=== PATIENT | female | born 1935 | race Caucasian/White ===

== ENCOUNTER 2016-06-10 03:41 | Outpatient (CLI) | payer MEDICARE, MEDICAID | END 2016-06-10 03:42 | disposition critical access hospital (66) | DX: R42 Dizziness and giddiness (principal) | CPT/HCPCS: A0425; A0429 ==

== ENCOUNTER 2016-06-10 03:57 | Emergency (ER) | payer MEDICARE, MEDICAID ==
[2016-06-10] MEDS ORDERED: CIPROFLOXACIN 250 MG TABLET PO STA (06:08)
[2016-06-10] MEDS ORDERED: CIPROFLOXACIN 250 MG TABLET PO ONE (06:09)
[2016-06-10] MEDS ORDERED: MECLIZINE 12.5 MG TABLET PO STA (06:37)
[2016-06-10] MEDS ORDERED: MECLIZINE 12.5 MG TABLET PO ONE (06:39)
== END 2016-06-10 07:45 | disposition home or self-care (01) ==
DX: R42 Dizziness and giddiness (principal); N39.0 Urinary tract infection, site not specified; I10 Essential (primary) hypertension; E03.9 Hypothyroidism, unspecified
CPT/HCPCS: 36415; 70450; 71020; 80048; 81001; 84484; 85025; 87077; 87086; 87181; 93005; 93010; 99284; 99285; A9270

== ENCOUNTER 2016-06-19 16:03 | Outpatient (CLI) | payer MEDICARE, MEDICAID ==
--- NOTE | 2016-06-20 14:52 | DEXA Report ---
DEXA SCAN: 06/19/2016 CLINICAL INDICATION: Osteopenia. TECHNIQUE: Dual energy x-ray absorptiometry (DXA) was performed on a Wisecam system. Regions measured are the AP spine, femoral neck, and, if needed, forearm. COMPARISON: None. In accordance with the International Society for Clinical Densitometry (ISCD) guidelines, data from previous exams may be reanalyzed using current recommendations and techniques. This is done to allow a more accurate basis for comparison with the current study. FINDINGS: The data for the lumbar spine is as follows: REGION BMD (g/cm/cm) T-SCORE Z-SCORE L1 1.274 1.2 3.3 L2 1.262 0.5 2.6 L3 1.380 1.5 3.6 L4 1.492 2.4 4.5 TOTAL 1.363 1.5 3.6 NOTE: All evaluable vertebrae are used for classification. The data for the hip is as follows: REGION BMD (g/cm/cm) T-SCORE Z-SCORE Neck 0.872 -1.2 1.2 TOTAL 0.962 -0.4 1.9 NOTE: The femoral neck or total proximal femur, whichever is lowest, is used for classification. * Denotes significant change at the 95% confidence level. Denotes dissimilar scan types or analysis methods. IMPRESSION: THE WHO CLASSIFICATION BASED ON THE INTERNATIONAL REFERENCE STANDARD IS OSTEOPENIA (REFERENCE LEFT FEMORAL NECK). THE FRACTURE RISK IS INCREASED. RECOMMENDATION: Patients with diagnosis of osteoporosis or osteopenia should have regular bone mineral density assessment. For those eligible for Medicare, routine testing is allowed once every 2 years. Testing frequency can be increased for patients who have rapidly progressing disease or for those who are receiving medical therapy to restore bone mass. COMMENT: World Health Organization (WHO) definitions for osteoporosis and osteopenia: NORMAL BMD: T-score at -1.0 or higher, fracture risk is low. OSTEOPENIA BMD: T-score between -1.0 and -2.5, fracture risk is increased. OSTEOPOROSIS BMD: T-score at -2.5 or lower, fracture risk high. National Osteoporosis Foundation recommends: 1. Obtain adequate dietary calcium (at least 1200 mg per day) and vitamin D (400 -800 international units per day). 2. Participate, as appropriate, in regular weightbearing and muscle- strengthening exercise. 3. Avoid tobacco use and reduce alcohol and caffeine intake. 4. For more detailed information see the website at www.NOF.org. MTDD
== END 2016-06-19 16:04 | disposition home or self-care (01) ==
LOC: DI 16:03
PROVIDERS: ATTEND Internal Medicine
DX: M85.88 Other specified disorders of bone density and structure, other site (principal)
CPT/HCPCS: 77080

== ENCOUNTER 2016-10-28 11:06 | Outpatient (CLI) | payer MEDICARE, MEDICAID ==
--- NOTE | 2016-10-29 15:53 | Mammography Report ---
DIGITAL SCREENING MAMMOGRAPHY: 10/28/2016 COMPARISON: 06/27/2014 Bilateral digital CC, exaggerated CC, and MLO projections. Scattered fibroglandular densities are present. Bilateral calcifications are stable to minimally inc reased compared with 2014. No dominant mass, architectural distortion, skin thickening, suspicious m icrocalcifications, or interval change. IMPRESSION: NEGATIVE. BIRADS CATEGORY: 1, NEGATIVE. SUGGEST ROUTINE FOLLOWUP IN 12 MONTHS. STANDARD QUALIFYING STATEMENTS 1. This examination was reviewed with the aid of Computed-Aided Detection (CAD). 2. A negative or benign imaging report should not delay biopsy if clinically suspicious findings are present. Consider surgical consultation if warranted. More than 5% of cancers are not identified b y imaging. 3. Dense breasts may obscure an underlying neoplasm. JOB #: [id number] EXT JOB #:[id number]
== END 2016-10-28 11:07 | disposition home or self-care (01) ==
LOC: DI 11:06
PROVIDERS: ATTEND Internal Medicine
DX: Z12.31 Encounter for screening mammogram for malignant neoplasm of breast (principal)
CPT/HCPCS: 77067

== ENCOUNTER 2017-01-04 13:13 | Outpatient (CLI) | payer MEDICARE, MEDICAID | END 2017-01-04 13:14 | disposition home or self-care (01) | LOC: RT 13:13 | PROVIDERS: ATTEND Internal Medicine | DX: J45.909 Unspecified asthma, uncomplicated (principal) | CPT/HCPCS: 94010 ==

== ENCOUNTER 2017-01-08 02:35 | Outpatient (CLI) | payer MEDICARE, MEDICAID | END 2017-01-08 02:36 | disposition critical access hospital (66) | LOC: EMS 02:35 | PROVIDERS: ATTEND Surgery | DX: R04.0 Epistaxis (principal) | CPT/HCPCS: A0425; A0429 ==

== ENCOUNTER 2017-01-08 02:51 | Emergency (ER) | payer MEDICARE, MEDICAID ==
--- NOTE | 2017-01-08 02:59 | ED Physician Documentation ---
PD HPI HEENT - Stated complaint Stated Complaint: Nose Bleed - History obtained from History obtained from: Patient, EMS - History of Present Illness Timing - onset: Today Timing - duration: Minutes Timing - details: Now resolved Location: Nose Similar symptoms before: Has not had sx before Recently seen: Not recently seen - Additional information Additional information: Patient is an 81 year old female with no significant past medical history who is presenting to the emergency department for epistaxis. According to patient and ems, patient developed a nose bleed tonight. Patient states that she has been cold and using her heater more recently. When ems arrived they were able to control the bleeding, which was fairly minimal, but patient insisted on coming to the emergency department. Upon initial evaluation in the emergency department patient was well appearing, in no distress with no active bleeding. Review of Systems Constitutional: denies: Fever, Chills Eyes: denies: Discharge, Irritation Ears: reports: Reviewed and negative Nose: reports: Epistaxis Throat: reports: Reviewed and negative Cardiac: reports: Reviewed and negative Respiratory: reports: Cough GI: denies: Nausea, Vomiting, Constipation, Diarrhea : reports: Reviewed and negative Skin: reports: Reviewed and negative Neurologic: reports: Reviewed and negative Psychiatric: reports: Reviewed and negative Immunocompromised: denies: Immunocompromised PD PAST MEDICAL HISTORY - Past Medical History Cardiovascular: Hypertension, High cholesterol Respiratory: Asthma Neuro: None Endocrine/Autoimmune: HyPOthyroidism GI: Other : None HEENT: Chronic sinusitis Musculoskeletal: None Derm: None - Past Surgical History Past Surgical History: Yes General: Appendectomy, 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: Hysterectomy HEENT: Cataracts, Tonsil/Adenoidectomy - Present Medications Home Medications: Ambulatory Orders Medication Instructions Recorded Confirmed Levothyroxine [Synthroid] 1 tab PO DAILY 11/02/13 02/08/15 Atorvastatin [Lipitor] 1 tab PO DAILY 04/06/14 02/08/15 Calcium Carbonate/Vitamin D3 1 each PO DAILY 04/06/14 02/08/15 [Calcium + Vitamin D Tablet] Lisinopril [Prinivil] 1 tab PO DAILY 04/06/14 02/08/15 Montelukast [Singulair] 10 mg PO DAILY 04/06/14 02/08/15 [place]yrus-3 Fatty Acids [Fish Oil] 1 tab PO DAILY 04/06/14 02/08/15 Beclomethasone Dipropionate [Qvar] 1 puffs IH BID 04/20/14 02/08/15 Ferrous Sulfate 325 mg ORAL DAILY 04/28/14 02/08/15 Multivit-Min/FA/Lycopen/Lutein 1 tab PO DAILY 12/18/14 02/08/15 [Centrum Silver Tablet] Ciprofloxacin HCl [Cipro] 500 mg PO BID #13 tablet 06/10/16 - Allergies Allergies/Adverse Reactions: Allergies Allergy/AdvReac Type Severity Reaction Status Date / Time aztreonam Allergy Unknown Dizziness Verified 11/02/13 10:48 carbamazepine Allergy Unknown Dizziness Verified 11/02/13 10:48 Cephalosporins Allergy Unknown Dizziness Verified 11/02/13 10:48 Penicillins Allergy Unknown Dizziness Verified 11/02/13 10:48 - Social History Does the pt smoke?: No Smoking Status: Never smoker Does the pt drink ETOH?: No Does the pt have substance abuse?: No - Immunizations Immunizations are current?: Yes - POLST Patient has POLST: No PD ED PE NORMAL - Vitals Vital signs reviewed: Yes - General General: Alert and oriented X 3, No acute distress, Well developed/nourished - HEENT HEENT: Atraumatic, PERRL, EOMI, Moist mucous membranes, Pharynx benign, Other ( no bleeding in the nares) - Neck Neck: Supple, no meningeal sign - Cardiac Cardiac: RRR, No murmur - Respiratory Respiratory: No respiratory distress - Abdomen Abdomen: Soft, Non tender, Non distended - Derm Derm: Normal color, Warm and dry, No rash - Extremities Extremities: No deformity, No tenderness to palpate, No edema - Neuro Neuro: Alert and oriented X 3, No motor deficit, No sensory deficit, Normal speech Eye Opening: Spontaneous Motor: Obeys Commands Verbal: Oriented GCS Score: 15 PD ED PE EXPANDED - HEENT HEENT: No: Nasal congestion, Right nares epsitaxis, Left nares epistaxis Results - Vitals Vitals: Vital Signs - 24 hr 01/08/17 01/08/17 01/08/17 02:57 03:00 03:22 Temperature 36.8 C Heart Rate 111 H 97 97 Respiratory 22 18 Rate Blood Pressure 186/90 H 151/86 H O2 Saturation 96 99 Oxygen O2 Source Room air PD MEDICAL DECISION MAKING - ED course Complexity details: reviewed old records, reviewed results, re-evaluated patient , considered differential, d/w patient ED course: Patient was seen and examined at bedside. patient was well appearing and in no distress. Patient's tachycardia resolved on its own. the bleeding had already resolved. there was no indication for any diagnostics at this time. patient was counseled on preventative and home treatment methods and was stable for discharge with outpatient follow up. Departure - Departure Disposition: 01 Home, Self Care Clinical Impression: Epistaxis not due to trauma Condition: Good Instructions: ED Nosebleed Follow-Up: Kaylan Hewitt MD [Primary Care Provider] - As Needed Comments: Your bleeding has stopped and there is no apparent bleeding vessel on exam. I would apply vaseline to the inside of your nose during the winter when you are running your heater. Drying out the nasal septum is the most likely culprit. If it does start bleeding again you should apply pressure with your hands, or the clamps given to you. You should follow up with your doctor if this symptom persists or becomes more frequent. You can return to the emergency department at any time if necessary for new, worsening or uncontrollable symptoms. Discharge Date/Time: 01/08/17 03:18
[2017-01-08 03:23] VITALS: BP 151/86
== END 2017-01-08 03:18 | disposition home or self-care (01) ==
LOC: EDUNIT# → SUPCPDRO 02:51 → ED 02:51
DX: R04.0 Epistaxis (principal); I10 Essential (primary) hypertension; E78.00 Pure hypercholesterolemia, unspecified; E03.9 Hypothyroidism, unspecified
CPT/HCPCS: 99283

== ENCOUNTER 2017-11-16 06:17 | Outpatient (CLI) | payer MEDICARE, MEDICAID | END 2017-11-16 06:18 | disposition EMS.NT | LOC: EMS 06:17 | PROVIDERS: ATTEND Surgery | DX: R09.81 Nasal congestion (principal) ==

== ENCOUNTER 2018-02-20 04:29 | Outpatient (CLI) | payer MEDICARE, MEDICAID | END 2018-02-20 04:30 | disposition critical access hospital (66) | LOC: EMS 04:29 | PROVIDERS: ATTEND Surgery | DX: R05 Cough (principal) | CPT/HCPCS: A0425; A0429 ==

== ENCOUNTER 2018-02-20 04:46 | Emergency (ER) | payer MEDICARE, MEDICAID ==
--- NOTE | 2018-02-20 05:11 | ED Physician Documentation ---
PD HPI URI - Stated complaint Stated Complaint: COUGH - Chief complaint Chief Complaint: Resp - History obtained from History obtained from: Patient, Family - History of Present Illness Timing - onset: How many weeks ago (1) Timing details: Gradual onset Associated symptoms: Chills. No: Fever, Sweats, Sore throat Improves by: Rest Worsened by: Activity Similar symptoms before: Has not had sx before Recently seen: Clinic - Additional information Additional information: Patient complains of cough and shortness of breath for one week. She saw her primary care physician recently, had blood work and although chest x-ray was discussed, it has not yet been performed. She says she was prescribed an inhaler, but she did not use it because she could not tolerate the taste. she presents to the emergency department at this time due to worsening dyspnea. Review of Systems Constitutional: reports: Reviewed and negative Cardiac: reports: Reviewed and negative Respiratory: reports: Dyspnea, Cough, Wheezing. 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: Hysterectomy HEENT: Cataracts, Tonsil/Adenoidectomy - Present Medications Home Medications: Ambulatory Orders Medication Instructions Recorded Confirmed Levothyroxine [Synthroid] 1 tab PO DAILY 11/02/13 02/08/15 Atorvastatin [Lipitor] 1 tab PO DAILY 04/06/14 02/08/15 Calcium Carbonate/Vitamin D3 1 each PO DAILY 04/06/14 02/08/15 [Calcium + Vitamin D Tablet] Lisinopril [Prinivil] 1 tab PO DAILY 04/06/14 02/08/15 Montelukast [Singulair] 10 mg PO DAILY 04/06/14 02/08/15 Novi-3 Fatty Acids [Fish Oil] 1 tab PO DAILY 04/06/14 02/08/15 Beclomethasone Dipropionate [Qvar] 1 puffs IH BID 04/20/14 02/08/15 Ferrous Sulfate 325 mg ORAL DAILY 04/28/14 02/08/15 Multivit-Min/FA/Lycopen/Lutein 1 tab PO DAILY 12/18/14 02/08/15 [Centrum Silver Tablet] Ciprofloxacin HCl [Cipro] 500 mg PO BID #13 tablet 06/10/16 Albuterol Sulf [Ventolin Hfa 1 - 2 puffs INH Q4HR PRN #1 inhaler 02/20/18 Inhaler] - Allergies Allergies/Adverse Reactions: Allergies Allergy/AdvReac Type Severity Reaction Status Date / Time aztreonam Allergy Unknown Dizziness Verified 02/20/18 04:52 carbamazepine Allergy Unknown Dizziness Verified 02/20/18 04:52 Cephalosporins Allergy Unknown Dizziness Verified 02/20/18 04:52 Penicillins Allergy Unknown Dizziness Verified 02/20/18 04:52 - Social History Does the pt smoke?: No Smoking Status: Never smoker Does the pt drink ETOH?: No Does the pt have substance abuse?: No - Immunizations Immunizations are current?: Yes - POLST Patient has POLST: No PD ED PE NORMAL - Vitals Vital signs reviewed: Yes - General General: Alert and oriented X 3, No acute distress, Well developed/nourished - HEENT HEENT: Moist mucous membranes - Neck Neck: Supple, no meningeal sign - Cardiac Cardiac: RRR, No murmur - Respiratory Respiratory: No respiratory distress, Other - Abdomen Abdomen: Soft, Non tender - Derm Derm: Normal color, Warm and dry - Extremities Extremities: No edema PD ED PE EXPANDED - Respiratory Respiratory: Decreased breath sounds Results - Vitals Vitals: Vital Signs - 24 hr 02/20/18 02/20/18 02/20/18 04:49 04:58 05:45 Temperature 36.5 C Heart Rate 105 H 97 91 Respiratory 20 Rate Blood Pressure 199/97 H 167/101 H 160/64 H O2 Saturation 94 95 95 02/20/18 02/20/18 05:52 06:49 Temperature Heart Rate 79 87 Respiratory 16 Rate Blood Pressure 167/72 H O2 Saturation 93 Oxygen O2 Source Room air - Labs Labs: Laboratory Tests 02/20/18 02/20/18 02/20/18 05:49 05:49 05:49 WBC 5.6 RBC 4.04 L Hgb 11.4 L Hct 35.4 L MCV 87.6 MCH 28.2 MCHC 32.1 RDW 15.9 H Plt Count 228 MPV 6.8 L Neut # (Auto) 3.3 Lymph # (Auto) 1.3 L [place] # (Auto) 0.4 Eos # (Auto) 0.6 Baso # (Auto) 0.0 Absolute Nucleated RBC 0.00 Nucleated RBC % 0.0 Sodium 141 Potassium 3.3 L Chloride 106 Carbon Dioxide 28 Anion Gap 7.0 BUN 18 Creatinine 1.0 Estimated GFR (MDRD) 53 L Glucose 100 Calcium 9.0 B-Natriuretic Peptide 132 H Influenza A (Rapid) Influenza B (Rapid) 02/20/18 06:30 WBC RBC Hgb Hct MCV MCH MCHC RDW Plt Count MPV Neut # (Auto) Lymph # (Auto) [place] # (Auto) Eos # (Auto) Baso # (Auto) Absolute Nucleated RBC Nucleated RBC % Sodium Potassium Chloride Carbon Dioxide Anion Gap BUN Creatinine Estimated GFR (MDRD) Glucose Calcium B-Natriuretic Peptide Influenza A (Rapid) Negative Influenza B (Rapid) Negative - Rads (name of study) chest xray Radiology: Prelim report reviewed, See rad report PD MEDICAL DECISION MAKING - ED course Complexity details: reviewed results, re-evaluated patient, considered differential, d/w patient ED course: patient reported significant relief on reevaluation after duoneb. Results of tests discussed with patient and family. Departure - Departure Disposition: 01 Home, Self Care Clinical Impression: Bronchitis with bronchospasm Condition: Good Instructions: ED Bronchitis Asthmatic Follow-Up: Kaylan Hewitt MD [Primary Care Provider] - Prescriptions: Albuterol Sulf [Ventolin Hfa Inhaler] 1 - 2 puffs INH Q4HR PRN #1 inhaler PRN Reason: Shortness Of Air/Wheezing Discharge Date/Time: 02/20/18 07:40
[2018-02-20] MEDS ORDERED: IPRATROPIUM/ALBUTEROL 3 ML NEB INH STA (05:41)
[2018-02-20 06:00] LABS: BASOPHILS % (AUTO) 0.3 %; EOSINOPHILS # (AUTO) 0.6 10^3/uL (0.0-0.7); EOSINOPHILS % (AUTO) 10.7 %; HGB - HEMOGLOBIN 11.4 g/dL (12.0-16.0); LYMPHOCYTES # (AUTO) 1.3 10^3/uL (1.5-3.5); LYMPHOCYTES % (AUTO) 22.6 %; MEAN CORPUSCULAR HEMOGLOBIN 28.2 pg (27.0-31.0); MEAN CORPUSCULAR HGB CONC 32.1 g/dL (32.0-36.0); MEAN CORPUSCULAR VOLUME 87.6 fL (81.0-99.0); MEAN PLATELET VOLUME 6.8 fL (7.9-10.8); MONOCYTES # (AUTO) 0.4 10^3/uL (0.0-1.0); MONOCYTES % (AUTO) 7.6 %; NEUTROPHILS # (AUTO) 3.3 10^3/uL (1.5-6.6); NEUTROPHILS % (AUTO) 58.8 %; PLT - PLATELET COUNT 228 10^3/uL (130-450); RED BLOOD COUNT 4.04 10^6/uL (4.20-5.40); RED CELL DISTRIBUTION WIDTH 15.9 % (12.0-15.0); WHITE BLOOD COUNT 5.6 x10^3/uL (4.8-10.8)
--- NOTE | 2018-02-20 06:30 | XRAY Report ---
Reason: cough, dyspnea Procedure Date: 02/20/2018 Accession Number: [id number] / [id number] Procedure: XR - Chest 2 View X-Ray CPT Code: 06673 FULL RESULT: EXAM: CHEST RADIOGRAPHY EXAM DATE: 02/20/2018 06:20 AM. CLINICAL HISTORY: Cough, dyspnea. COMPARISON: CHEST 2 VIEW PA/LAT 06/10/2016 4:33 AM. TECHNIQUE: 2 views. FINDINGS: Lungs/Pleura: No alveolar consolidation or pleural effusion seen. Large lung volumes. No pneumothorax. Mediastinum: Heart and mediastinal contours are unremarkable. Other: None. IMPRESSION: 1. No acute abnormality seen in the chest. RADIA
[2018-02-20 06:52] VITALS: BP 167/72
== END 2018-02-20 07:40 | disposition home or self-care (01) ==
LOC: EDUNIT# → ED 04:46
DX: J20.9 Acute bronchitis, unspecified (principal); E03.9 Hypothyroidism, unspecified; I10 Essential (primary) hypertension; E78.00 Pure hypercholesterolemia, unspecified
CPT/HCPCS: 36415; 71046; 80048; 83880; 85025; 87275; 87276; 94640; 99283

== ENCOUNTER 2018-03-22 13:04 | Emergency (ER) | payer MEDICARE, MEDICAID ==
[2018-03-22] MEDS ORDERED: IOVERSOL 320 100 ML VIAL IVP ONE ×3 (13:05→14:07)
--- NOTE | 2018-03-22 13:27 | ED Physician Documentation ---
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 She is originally [place] and seems to have some memory issues is here last week for the cough and she is been using an inhaler which gives her rash, but the rash is not present right now. The rash is usually at night and on the back of the thighs. The cough is keeping her up at night and is productive of clear mucus. She actually was not here last week, it was almost a month ago to the day. She also complains of abdominal pain, "since I have been here." When I asked her how long she is been here she says she moved to [facility] in 2005. Since then she is also had chronic constipation. The abdominal pain is upper and not related to eating. It does not lateralize or radiate to the back. She denies nausea or vomiting. She denies fevers or shortness of breath.) Review of Systems Constitutional: reports: Fatigue. denies: Fever, Chills Nose: denies: Rhinorrhea / runny nose, Congestion Cardiac: denies: Chest pain / pressure, Palpitations Respiratory: reports: Cough. denies: Dyspnea, Wheezing GI: reports: Abdominal Pain, Constipation. 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 HEENT: Cataracts, Tonsil/Adenoidectomy - Present Medications Home Medications: Ambulatory Orders Medication Instructions Recorded Confirmed Levothyroxine [Synthroid] 1 tab PO DAILY 11/02/13 03/22/18 Atorvastatin [Lipitor] 1 tab PO DAILY 04/06/14 03/22/18 Calcium Carbonate/Vitamin D3 1 each PO DAILY 04/06/14 03/22/18 [Calcium + Vitamin D Tablet] Multivit-Min/FA/Lycopen/Lutein 1 tab PO DAILY 12/18/14 03/22/18 [Centrum Silver Tablet] Albuterol Sulf [Ventolin Hfa 1 - 2 puffs INH Q4HR PRN #1 inhaler 02/20/18 03/22/18 Inhaler] Aspirin 03/22/18 Benzonatate [Tessalon Perle] 100 - 200 mg PO TID PRN #30 capsule 03/22/18 Nitrofurantoin Monohyd/M-Cryst 100 mg PO BID #10 capsule 03/22/18 [Macrobid 100 mg Capsule] - Allergies Allergies/Adverse Reactions: Allergies Allergy/AdvReac Type Severity Reaction Status Date / Time aztreonam Allergy Unknown Dizziness Verified 03/22/18 13:45 carbamazepine Allergy Unknown Dizziness Verified 03/22/18 13:45 Cephalosporins Allergy Unknown Dizziness Verified 03/22/18 13:45 Penicillins Allergy Unknown Dizziness Verified 03/22/18 13:45 - Social History Does the pt smoke?: No Smoking Status: Never smoker Does the pt drink ETOH?: No Does the pt have substance abuse?: No - Immunizations Immunizations are current?: Yes - POLST Patient has POLST: No PD ED PE NORMAL - Vitals Vital signs reviewed: Yes - General General: No acute distress, Well developed/nourished - HEENT HEENT: Other (No tonsils, oropharynx normal) - Neck Neck: Supple, no meningeal sign, No bony TTP - Cardiac Cardiac: RRR, No murmur - Respiratory Respiratory: No respiratory distress, Clear bilaterally - Abdomen Abdomen: Soft, Other (She was examined several times during initial evaluation and she has migratory abdominal tenderness that seems left lower and epigastric depending on when I actually touch her. No surgical signs. Hyperactive bowel tones.) - Back Back: No CVA TTP, No spinal TTP - Derm Derm: No rash - Extremities Extremities: No edema, No calf tenderness / cord - Neuro Neuro: Alert and oriented X 3, Normal speech Results - Vitals Vitals: Vital Signs - 24 hr 03/22/18 13:08 Temperature 36.1 C L Heart Rate 79 Respiratory 20 Rate Blood Pressure 140/117 H O2 Saturation 98 Oxygen O2 Source Room air - Labs Labs: Laboratory Tests 03/22/18 03/22/18 03/22/18 13:30 13:30 13:53 WBC 6.6 RBC 4.19 L Hgb 12.1 Hct 36.0 L MCV 85.8 MCH 28.8 MCHC 33.6 RDW 16.6 H Plt Count 272 MPV 7.4 L Neut # (Auto) 4.6 Lymph # (Auto) 0.9 L [place] # (Auto) 0.6 Eos # (Auto) 0.4 Baso # (Auto) 0.0 Absolute Nucleated RBC 0.01 Nucleated RBC % 0.1 Sodium 135 Potassium 3.7 Chloride 99 L Carbon Dioxide 26 Anion Gap 10.0 BUN 22 H Creatinine 1.2 H Estimated GFR (MDRD) 43 L Glucose 152 H Calcium 9.4 Total Bilirubin 0.5 AST 32 ALT 24 Alkaline Phosphatase 81 Total Protein 8.0 Albumin 3.8 Globulin 4.2 Albumin/Globulin Ratio 0.9 L Lipase 48 Urine Color YELLOW Urine Clarity CLEAR Urine pH 6.0 Ur Specific [place] 1.025 Urine Protein NEGATIVE Urine Glucose (UA) NEGATIVE Urine Ketones NEGATIVE Urine Occult Blood SMALL H Urine Nitrite NEGATIVE Urine Bilirubin NEGATIVE Urine Urobilinogen 0.2 (NORMAL) Ur Leukocyte Esterase TRACE H Urine RBC 0-5 Urine WBC 6-10 H Urine WBC Clumps PRESENT Ur Squamous Epith Cells RARE Squamous Urine Bacteria Rare Ur Microscopic Review INDICATED Urine Culture Comments INDICATED - Rads (name of study) 2v Chest Radiology: EMP read contemporaneously (Normal) CT A/P Radiology: EMP read contemporaneously (Diverticulosis and concern for a closed loop obstruction in the low abdomen.) PD MEDICAL DECISION MAKING - ED course ED course: This is an 82-year-old woman who presents with kind of a rambling history of cough and abdominal pain of unclear acuity. Workup as shown. The CT was reviewed personally. Clinically she is not obstructed, she has hyperactive bowel tones and no vomiting. Could be an enteritis, partial obstruction less likely. Either way case was discussed by phone with the on-call surgeon, Dr. Devin Cantu who recommended liquid diet for 24 hours and we will of course also treat her UTI. Departure - Departure Disposition: 01 Home, Self Care Clinical Impression: Cough, Enteritis UTI (urinary tract infection) Qualifiers: Urinary tract infection type: acute cystitis Hematuria presence: without he maturia Qualified Code(s): N30.00 - Acute cystitis without hematuria Condition: Good Record reviewed to determine appropriate education?: Yes Instructions: ED UTI Cystitis Female Prescriptions: Benzonatate [Tessalon Perle] 100 - 200 mg PO TID PRN #30 capsule PRN Reason: Cough Nitrofurantoin Monohyd/M-Cryst [Macrobid 100 mg Capsule] 100 mg PO BID #10 capsule Comments: As discussed you could have a partial bowel obstruction or a viral syndrome affecting your bowel. Either way you should be on a liquid diet for the next 24 hours. Return for new or worsening symptoms, especially if you develop a fever or vomiting. Follow-up with your primary care physician in 2 days for recheck. We will culture your urine, the results should be done in 48-72 hours. If an antibiotic change is necessary we will call you. Return if worse in the meanti me, especially if you develop increasing flank pain, fevers, or cannot keep down the medication. Your blood pressure was elevated today on check into the emergency department. This does not mean that you have hypertension, it is a common phenomenon to come to the emergency department and have elevated blood pressure. I recommend that you see your primary care physician within the week to have it rechecked when you are feeling better.
[2018-03-22 13:42] LABS: BASOPHILS % (AUTO) 0.7 %; EOSINOPHILS # (AUTO) 0.4 10^3/uL (0.0-0.7); EOSINOPHILS % (AUTO) 6.8 %; HGB - HEMOGLOBIN 12.1 g/dL (12.0-16.0); LYMPHOCYTES # (AUTO) 0.9 10^3/uL (1.5-3.5); MEAN CORPUSCULAR HEMOGLOBIN 28.8 pg (27.0-31.0); MEAN CORPUSCULAR HGB CONC 33.6 g/dL (32.0-36.0); MEAN CORPUSCULAR VOLUME 85.8 fL (81.0-99.0); MEAN PLATELET VOLUME 7.4 fL (7.9-10.8); MONOCYTES # (AUTO) 0.6 10^3/uL (0.0-1.0); MONOCYTES % (AUTO) 8.7 %; NEUTROPHILS # (AUTO) 4.6 10^3/uL (1.5-6.6); NEUTROPHILS % (AUTO) 69.8 %; PLT - PLATELET COUNT 272 10^3/uL (130-450); RED BLOOD COUNT 4.19 10^6/uL (4.20-5.40); RED CELL DISTRIBUTION WIDTH 16.6 % (12.0-15.0); WHITE BLOOD COUNT 6.6 x10^3/uL (4.8-10.8)
[2018-03-22 13:48] LABS: ALBUMIN 3.8 g/dL (3.2-5.5); ALBUMIN/GLOBULIN RATIO 0.9 (1.0-2.2); BILIRUBIN,TOTAL 0.5 mg/dL (0.2-1.0); CALCIUM 9.4 mg/dL (8.5-10.3); CREATININE 1.2 mg/dL (0.4-1.0)
[2018-03-22 13:58] LABS: BILIRUBIN,URINE NEGATIVE (NEGATIVE); GLUCOSE, URINE (UA) NEGATIVE (NEGATIVE); KETONES,URINE (UA) NEGATIVE (NEGATIVE); LEUKOCYTE ESTERASE, URINE TRACE (NEGATIVE); NITRITE,URINE NEGATIVE (NEGATIVE); OCCULT BLOOD,URINE SMALL (NEGATIVE); PROTEIN,URINE NEGATIVE (NEGATIVE); UROBILINOGEN,URINE 0.2 (NORMAL) E.U./dL (NORMAL)
[2018-03-22 14:00] LABS: CLARITY,URINE CLEAR (CLEAR)
[2018-03-22 14:08] LABS: BACTERIA,URINE Rare /HPF (None Seen); SQUAMOUS EPITHELIAL CELL,UR RARE Squamous (<= Few); WBC CLUMPS,URINE PRESENT
[2018-03-22 14:17] LABS: RBC,URINE 0-5 /HPF (0-5)
--- NOTE | 2018-03-22 14:38 | XRAY Report ---
Reason: persistent cough Procedure Date: 03/22/2018 Accession Number: [id number] / [id number] Procedure: XR - Chest 2 View X-Ray CPT Code: 12053 FULL RESULT: EXAM: CHEST RADIOGRAPHY EXAM DATE: 03/22/2018 02:13 PM. CLINICAL HISTORY: Persistent cough. COMPARISON: CHEST 2 VIEW 02/20/2018 6:06 AM ABDOMEN/PELVIS W/ 03/22/2018 2:04 PM. TECHNIQUE: 2 views. FINDINGS: Lungs/Pleura: No focal opacities evident. No pleural effusion. No pneumothorax. Normal volumes. Hyperexpansion. Mediastinum: Heart size is normal. Aorta is mildly tortuous. Other: Degenerative changes of the thoracic spine. IMPRESSION: 1. No acute disease in the chest. RADIA
--- NOTE | 2018-03-22 14:55 | CT Report ---
Reason: IV only, diffuse abd pain upper and LLQ Procedure Date: 03/22/2018 Accession Number: [id number] / [id number] Procedure: CT - Abdomen/Pelvis W/ CPT Code: FULL RESULT: EXAM: CT ABDOMEN AND PELVIS WITH CONTRAST. EXAM DATE: 03/22/2018 02:04 PM. CLINICAL HISTORY: Diffuse abdominal pain, upper and lower quadrants. COMPARISONS: None. TECHNIQUE: Routine helical CT imaging was performed through the abdomen and pelvis. IV contrast: 80 cc of Optiray 320. Enteric contrast: No. Reconstructions: Coronal and sagittal. In accordance with CT protocol optimization, one or more of the following dose reduction techniques were utilized for this exam: automated exposure control, adjustment of mA and/or KV based on patient size, or use of iterative reconstructive technique. FINDINGS: Lung Bases: Basilar scar/atelectasis. Included portions of the heart are unremarkable. Small hiatal hernia. Liver: Normal. No masses. Gallbladder/Bile Ducts: Markedly contracted gallbladder. No biliary ductal dilatation. Spleen: Normal. Pancreas: Pancreatic parenchymal volume loss. No peripancreatic edema. Adrenal Glands: Normal. Kidneys: Renal parenchymal volume loss. No hydronephrosis. No nephrolithiasis. Extra renal pelves bilaterally. Upper pole right renal 7 mm low-attenuation lesion too small to characterize. Peritoneal Cavity/Bowel: Stomach is mild to mildly distended and unremarkable. Diverticula are seen in the colon. No diverticulitis. Focal loops of moderately dilated small bowel are seen in the pelvis with a transition point noted on coronal image 24 and axial images 53-54 and seen on coronal image 19, series 5 and axial images 50-52 series 3. There is mesenteric edema. Pattern is consistent with bowel obstruction likely developing closed-loop obstruction. Dilated bowel loops are likely in the mid small bowel. The appendix is well visualized and normal. Pelvic Organs: Urinary bladder is minimally distended. Uterus is absent. No pelvic adenopathy. No pelvic free fluid. Vasculature: Vascular calcifications. No aneurysm. Bones: Degenerative changes lower thoracic and lumbar spine. Grade 1 anterolisthesis of L3 on L4 and L4 on L5 for lumbar facet arthropathy. Degenerative changes of both hip joints. Other: None. IMPRESSION: 1. Small bowel obstruction present in the lower abdomen and upper pelvis in a pattern most likely representing a developing closed-loop obstruction. 2. Normal appendix. 3. Colonic diverticulosis. No diverticulitis. RADIA
[2018-03-22 15:09] VITALS: BP 158/79
== END 2018-03-22 15:23 | disposition home or self-care (01) ==
LOC: ED 13:04
DX: K52.9 Noninfective gastroenteritis and colitis, unspecified (principal); R05 Cough; N30.00 Acute cystitis without hematuria; I10 Essential (primary) hypertension; J45.909 Unspecified asthma, uncomplicated
CPT/HCPCS: 36415; 71046; 74177; 80053; 81001; 83690; 85025; 87077; 87086; 87181; 99283; 99284; Q9967; 81003

== ENCOUNTER 2018-03-24 19:08 | Outpatient (CLI) | payer MEDICARE, MEDICAID | END 2018-03-24 19:09 | disposition critical access hospital (66) | LOC: EMS 19:08 | PROVIDERS: ATTEND Surgery | DX: K62.5 Hemorrhage of anus and rectum (principal) | CPT/HCPCS: A0425; A0427 ==

== ENCOUNTER 2018-03-24 19:26 | Inpatient (IN) | payer MEDICARE, MEDICAID ==
--- NOTE | 2018-03-24 20:03 | ED Physician Documentation ---
PD HPI ABD PAIN - Stated complaint Stated Complaint: BLOODY STOOL - Chief complaint Chief Complaint: Abd Pain - History obtained from History obtained from: Patient, EMS - History of Present Illness Timing - onset: Other (She was seen by me 2 days ago for abdominal pain. CT was concerning for closed-loop obstruction but this was not present clinically as she was not vomiting at the time. Surgery was consulted by phone and she was discharged on liquid diet. She continues to have episodic migratory abdominal pain and vomited 3 times today but had diarrhea as well today. She did also have a UTI the other day and was started on Macrobid. 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: None : None HEENT: Chronic sinusitis Psych: None Musculoskeletal: None Derm: None - Past Surgical History Past Surgical History: Yes General: Appendectomy, Colonoscopy /ADVANCED ANALYTICS ASSOCIATE: Hysterectomy HEENT: Cataracts, Tonsil/Adenoidectomy - Present Medications Home Medications: Ambulatory Orders Medication Instructions Recorded Confirmed Levothyroxine [Synthroid] 1 tab PO DAILY 11/02/13 03/22/18 Atorvastatin [Lipitor] 1 tab PO DAILY 04/06/14 03/22/18 Calcium Carbonate/Vitamin D3 1 each PO DAILY 04/06/14 03/22/18 [Calcium + Vitamin D Tablet] Multivit-Min/FA/Lycopen/Lutein 1 tab PO DAILY 12/18/14 03/22/18 [Centrum Silver Tablet] Albuterol Sulf [Ventolin Hfa 1 - 2 puffs INH Q4HR PRN #1 inhaler 02/20/18 03/22/18 Inhaler] Aspirin 03/22/18 Benzonatate [Tessalon Perle] 100 - 200 mg PO TID PRN #30 capsule 03/22/18 Nitrofurantoin Monohyd/M-Cryst 100 mg PO BID #10 capsule 03/22/18 [Macrobid 100 mg Capsule] - Allergies Allergies/Adverse Reactions: Allergies Allergy/AdvReac Type Severity Reaction Status Date / Time aztreonam Allergy Unknown Dizziness Verified 03/24/18 19:35 carbamazepine Allergy Unknown Dizziness Verified 03/24/18 19:35 Cephalosporins Allergy Unknown Dizziness Verified 03/24/18 19:35 Penicillins Allergy Unknown Dizziness Verified 03/24/18 19:35 - Social History Does the pt smoke?: No Smoking Status: Never smoker Does the pt drink ETOH?: No Does the pt have substance abuse?: No - Immunizations Immunizations are current?: Yes - POLST Patient has POLST: No PD ED PE NORMAL - Vitals Vital signs reviewed: Yes - General General: Alert and oriented X 3, No acute distress - HEENT HEENT: PERRL, EOMI - Neck Neck: Supple, no meningeal sign, No bony TTP - Cardiac Cardiac: RRR, No murmur - Respiratory Respiratory: No respiratory distress, Clear bilaterally - Abdomen Abdomen: Other (Hyperactive bowel tones, soft with mild diffuse tenderness especially lower, no surgical signs.) - Back Back: No CVA TTP, No spinal TTP - Derm Derm: Normal color, Warm and dry - Extremities Extremities: No edema, No calf tenderness / cord - Neuro Neuro: Alert and oriented X 3, Normal speech Results - Vitals Vitals: Vital Signs - 24 hr 03/24/18 03/24/18 19:31 20:55 Temperature 36.6 C Heart Rate 92 93 Respiratory 18 16 Rate Blood Pressure 137/66 H 160/75 H O2 Saturation 96 99 Oxygen O2 Source Room air - Labs Labs: Laboratory Tests 03/24/18 03/24/18 20:11 20:11 WBC 6.7 RBC 4.43 Hgb 12.9 Hct 38.3 MCV 86.5 MCH 29.0 MCHC 33.5 RDW 16.5 H Plt Count 280 MPV 7.2 L Neut # (Auto) 5.7 Lymph # (Auto) 0.6 L Harding # (Auto) 0.3 Eos # (Auto) 0.0 Baso # (Auto) 0.1 Absolute Nucleated RBC 0.00 Nucleated RBC % 0.0 Sodium 133 L Potassium 4.0 Chloride 96 L Carbon Dioxide 25 Anion Gap 12.0 BUN 19 Creatinine 1.3 H Estimated GFR (MDRD) 39 L Glucose 141 H Calcium 9.2 Total Bilirubin 0.8 AST 26 ALT 19 Alkaline Phosphatase 74 Total Protein 8.0 Albumin 3.9 Globulin 4.1 Albumin/Globulin Ratio 1.0 Lipase 43 - Rads (name of study) CT A/P Radiology: EMP read contemporaneously (Small bowel obstruction with the mid to distal small bowel obstructed and a transition zone without obvious mass. Diverticulitis.) PD MEDICAL DECISION MAKING - ED course ED course: This is an 82-year-old woman who was seen 2 days ago with findings of partial small bowel obstruction was discharged home on a clear liquid diet after consultation with the surgeon. She represents today as requested after she started vomiting. She clinically actually still does not really have a small bowel obstruction as she had diarrhea earlier in the day and has bowel tones but CT findings are persistent and now has diverticulitis as well. She is administered Cipro and Flagyl for the diverticulitis as well as a Klebsiella UTI. Spoke with Dr. Devin Cantu, the on-call surgeon for consultation at 10 PM who recommends NG tube decompression and he will consult. Spoke with Dr. Reece for admission at 10:15 PM who requests a lactate level. Departure - Departure Disposition: 66 [facility] DC/Xfer Clinical Impression: Diverticulitis of gastrointestinal tract, Small bowel obstruction, Urinary tract infection Condition: Stable
[2018-03-24] MEDS ORDERED: IOVERSOL 320 100 ML VIAL IVP ONE ×2 (20:07→21:23)
[2018-03-24] MEDS ORDERED: IOVERSOL 320 50 ML VIAL ONE (20:07)
[2018-03-24 20:23] LABS: BASOPHILS # (AUTO) 0.1 10^3/uL (0.0-0.1); BASOPHILS % (AUTO) 0.8 %; EOSINOPHILS % (AUTO) 0.2 %; HGB - HEMOGLOBIN 12.9 g/dL (12.0-16.0); LYMPHOCYTES # (AUTO) 0.6 10^3/uL (1.5-3.5); LYMPHOCYTES % (AUTO) 9.2 %; MEAN CORPUSCULAR HGB CONC 33.5 g/dL (32.0-36.0); MEAN CORPUSCULAR VOLUME 86.5 fL (81.0-99.0); MEAN PLATELET VOLUME 7.2 fL (7.9-10.8); MONOCYTES # (AUTO) 0.3 10^3/uL (0.0-1.0); MONOCYTES % (AUTO) 4.6 %; NEUTROPHILS # (AUTO) 5.7 10^3/uL (1.5-6.6); NEUTROPHILS % (AUTO) 85.2 %; PLT - PLATELET COUNT 280 10^3/uL (130-450); RED BLOOD COUNT 4.43 10^6/uL (4.20-5.40); RED CELL DISTRIBUTION WIDTH 16.5 % (12.0-15.0); WHITE BLOOD COUNT 6.7 x10^3/uL (4.8-10.8)
[2018-03-24] MEDS ORDERED: ONDANSETRON 4 MG/2 ML VIAL IVP STA (20:27)
[2018-03-24 20:34] LABS: ALBUMIN 3.9 g/dL (3.2-5.5); BILIRUBIN,TOTAL 0.8 mg/dL (0.2-1.0); CALCIUM 9.2 mg/dL (8.5-10.3); CREATININE 1.3 mg/dL (0.4-1.0)
[2018-03-24] MEDS ORDERED: MORPHINE 10 MG/ML VIAL IVP STA (20:47)
[2018-03-24] MEDS ORDERED: IOVERSOL 320 50 ML VIAL PO ONE (21:23)
--- NOTE | 2018-03-24 22:00 | CT Report ---
Reason: IV and PO, abd pain, vomiting, ?SBO Procedure Date: 03/24/2018 Accession Number: [id number] / [id number] Procedure: CT - Abdomen/Pelvis W/ CPT Code: FULL RESULT: EXAM: CT ABDOMEN AND PELVIS EXAM DATE: 03/24/2018 09:27 PM. CLINICAL HISTORY: IV and PO, abd pain, vomiting, ?SBO. COMPARISONS: ABDOMEN/PELVIS W/ 03/22/2018 2:04 PM. TECHNIQUE: Routine helical CT imaging was performed through the abdomen and pelvis. IV contrast: 75ML [id number]. Enteric contrast: Yes. Reconstructions: Coronal and sagittal. In accordance with CT protocol optimization, one or more of the following dose reduction techniques were utilized for this exam: automated exposure control, adjustment of mA and/or KV based on patient size, or use of iterative reconstructive technique. FINDINGS: Lung Bases: Unremarkable. Liver: Normal. No masses. Gallbladder/Bile Ducts: There are small gallstones versus sludge within the gallbladder. No focal inflammation around the gallbladder. Spleen: Normal. Pancreas: Normal. Adrenal Glands: Normal. Kidneys: Normal. No masses or hydronephrosis. Peritoneal Cavity/Bowel: The mid small bowel is dilated. There are multiple air-fluid levels within dilated small bowel loops in the upper abdomen and mid abdomen. The distal small bowel appears decompressed. There is oral contrast in the proximal one third of the small bowel. There is a focal transition zone between dilated and nondilated small bowel in the anterior mid upper pelvis seen on coronal image 22 and axial image 55. There is no obvious mass at this transition zone. There is fat stranding of the small bowel mesentery in the mid abdomen. There are multiple colonic diverticula. There is new mild fat stranding along the left paracolic gutter in the left mid abdomen. No free air or pneumatosis. No free fluid or abscess. The colon appears nondilated. Pelvic Organs: Urinary bladder is empty. Uterus is absent. Vasculature: There is mild to moderate aortic atherosclerotic calcification without aneurysm. Bones: No significant abnormality. Other: None. IMPRESSION: 1. Positive for findings of a mid to distal small bowel obstruction. A transition zone is identified without an obvious associated mass, volvulus, or hernia. 2. No perforation or abnormal fluid collection. 3. Colonic diverticulosis with new mild fat stranding around the mid descending colon in the left abdomen. These are findings of diverticulitis, although do not appear to be associated with the small bowel obstruction and may be incidental or subacute. RADIA
[2018-03-24] MEDS ORDERED: SODIUM CHLORIDE 0.9% 1,000 ML IV ONE (22:08)
[2018-03-24] MEDS ORDERED: metroNIDAZOLE 500 MG/100 ML 500 MG/100 ML BAG IV ONE (22:08)
[2018-03-24] MEDS ORDERED: CIPROFLOXACIN 400 MG/200 ML 200 ML IV ONE (22:08)
[2018-03-24] MEDS ORDERED: NS W/20 MEQ KCL 1,000 ML IV SCH (23:45)
[2018-03-25] MEDS: NS W/20 MEQ KCL 1,000 ML IV SCH ×3 (00:52→19:53)
[2018-03-25] MEDS: SODIUM CHLORIDE FLUSH 0.9% 10 ML SYRINGE IVP SCH ×4 (00:57→23:39)
[2018-03-25] MEDS: SODIUM CHLORIDE FLUSH 0.9% 10 ML SYRINGE IVP PRN (00:57)
--- NOTE | 2018-03-25 01:34 | HISTORY & PHYSICAL EXAMINATION ---
Chief Complaint - Chief Complaint Chief Complaint: worsening abd pain, nausea and vomiting History of Present Illness - Admitted From Admitted From:: [facility] ED - History Obtained From Records Reviewed: Yes History obtained from: patient - History of Present Illness HPI Comment/Other: Patient is an 82 y/o female who presented to the ED with complain of worsening abdominal pain, nausea and vomiting. She had been seen 2 days ago for nausea vomiting. She was found to have a UTI and placed on macrobid. She was advised to go on a bowel rest for 24 hours, but to return if the nausea and vomiting or abdominal pain worsened. After the 24 hours of bowel rest she had a bowl of vegetable soup and began experiencing nausea and vomiting. She had abdominal pain she could only repeatedly describe as "terrible". In the ED work up included a CT of the abdomen/pelvis which showed a mid to distal small bowel obstruction with transition zone noted. It also showed diverticulitis. She had an NG tube place which significant relieved her pain. At bedside, she appears very comfortable and rates her pain as 0/10. She denies chest pain, JONATHAN or fever. She is however always cold. The urine culture from her previous visit grew Klebsiella with intermediate sensitivity to the macrobid she was taking. As a result of all of these findings, she is being admitted for further evaluation and treatment. History - Past Medical History Cardiovascular: reports: Hypertension, High cholesterol Respiratory: reports: Asthma Neuro: reports: None Endocrine/Autoimmune: reports: HyPOthyroidism GI: reports: Chronic constipation, Hemorrhoids, Other SALES SUPPORT ENGINEER: reports: None : reports: None HEENT: reports: Chronic sinusitis Psych: reports: None Musculoskeletal: reports: None Derm: reports: None MRSA Hx?: No - Past Surgical History General: reports: Appendectomy, Colonoscopy /SALES SUPPORT ENGINEER: reports: Hysterectomy HEENT: reports: Cataracts, Tonsil/Adenoidectomy - Family & Social History Family History Comment/Other: patient denied any significant family history - Substance History Use: Uses substance without health or social issues: NONE - POLST Patient has POLST: Yes POLST Status: Full Code Meds/Allgy - Home Medications Home Medications: Ambulatory Orders Medication Instructions Recorded Confirmed Levothyroxine [Synthroid] 1 tab PO DAILY 11/02/13 03/22/18 Atorvastatin [Lipitor] 1 tab PO DAILY 04/06/14 03/22/18 Calcium Carbonate/Vitamin D3 1 each PO DAILY 04/06/14 03/22/18 [Calcium + Vitamin D Tablet] Multivit-Min/FA/Lycopen/Lutein 1 tab PO DAILY 12/18/14 03/22/18 [Centrum Silver Tablet] Albuterol Sulf [Ventolin Hfa 1 - 2 puffs INH Q4HR PRN #1 inhaler 02/20/18 03/22/18 Inhaler] Aspirin 03/22/18 Benzonatate [Tessalon Perle] 100 - 200 mg PO TID PRN #30 capsule 03/22/18 Nitrofurantoin Monohyd/M-Cryst 100 mg PO BID #10 capsule 03/22/18 [Macrobid 100 mg Capsule] - Allergies Allergies/Adverse Reactions: Allergies Allergy/AdvReac Type Severity Reaction Status Date / Time aztreonam Allergy Unknown Dizziness Verified 03/24/18 19:35 carbamazepine Allergy Unknown Dizziness Verified 03/24/18 19:35 Cephalosporins Allergy Unknown Dizziness Verified 03/24/18 19:35 Penicillins Allergy Unknown Dizziness Verified 03/24/18 19:35 Review of Systems - Constitutional Constitutional: reports: Chills. denies: Fever - Eyes Eyes: denies: Pain, Blurred vision, Dipolpia - Ears, Nose & Throat Ears, Nose & Throat: reports: Nasal congestion. denies: Ear pain, Nasal pain - Cardiovascular Cariovascular: denies: Chest pain, Edema - Respiratory Respiratory: denies: Cough, Wheezing, SOB with exertion - Gastrointestinal Gastrointestinal: reports: Abdominal pain, Nausea, Vomiting. denies: Constipation, Diarrhea - Genitourinary Genitourinary: reports: Frequency. denies: Dysuria, Urgency, Hematuria - Musculoskeletal Musculoskeletal: denies: Muscle pain, Back pain - Integumentary Integumentary: denies: Rash, Pruritis, Dryness - Neurological Neurological: denies: General weakness, Focal weakness, Headache, Dizziness - Psychiatric Psychiatric: denies: Depression, Anxiety - Endocrine Endocrine: denies: Polyuria, Polydypsia - Hematologic/Lymphatic Hematologic/Lymphatic: denies: Anemia, Bruising, Petechiae Prior Level of Functionality: Patient lives alone. He daughter and her family live nearby in the same city. She is totally independent for activities of daily living. She cooks for herself. She cleans her house and is emphatic that she does not need help with it because it really is not hard. She gets around by walking where ever she has to go. Exam - Vital Signs Reviewed Vital Signs: Yes Vital Signs: Vital Signs x48h Temp Pulse Pulse Resp BP BP Pulse Ox 03/24/18 23:50 37.1 C 79 16 158/66 H 96 03/24/18 23:25 37.1 C 82 16 164/83 H 96 03/24/18 20:55 93 16 160/75 H 99 03/24/18 19:31 36.6 C 92 18 137/66 H 96 - Physical Exam General Appearance: positive: No acute distress, Alert. negative: Anxious Eyes Bilateral: positive: Normal inspection ENT: positive: ENT inspection nml Neck: positive: Nml inspection, No JVD, Trachea midline. negative: Thyromegaly Respiratory: positive: No respiratory distress, Breath sounds nml. negative: Wheezes, Rales, Rhonchi Cardiovascular: positive: Regular rate & rhythm, No murmur Abdomen: positive: Non-tender, Nml bowel sounds, No distention. negative: Guarding, Rebound Rectal: negative: Bloody stool Back: positive: Nml inspection Skin: positive: Color nml, No rash, Warm Extremities: positive: Non-tender, Nml appearance, No pedal edema Neurologic/Psychiatric: positive: Oriented x3 Sepsis Event Note (H) - Evaluation Possible source of Sepsis: positive: Genitourinary Conclusion/Plan - Problem List (1) Small bowel obstruction Conclusion/Plan: NG tube in place. Pt NPO. IV hydration. General Surgery(Dr Cantu) was notified by the ED Will see the patient. (2) Diverticulitis of gastrointestinal tract Conclusion/Plan: Bowel rest. Patient started on cipro and flagyl. Will continue (3) Urinary tract infection Conclusion/Plan: Klebsiella pneumoniae growing in urine cultures Intermediate sensitivity to Macrobid. D/C Macrobid. Patient on Cipro Qualifiers: Urinary tract infection type: acute cystitis Hematuria presence: without hematuria Qualified Code(s): N30.00 - Acute cystitis without hematuria (4) Hypothyroidism Conclusion/Plan: Resume synthroid when able to do so (5) Hyperlipidemia Conclusion/Plan: On atorvastatin (6) Hypertension Conclusion/Plan: Not on any medications - Lab Results Fish Bones: 03/24/18 20:11 03/24/18 20:11 Core Measures - Anticipated LOS I expect patient to be DC'd or transferred within 96 hours.: Yes - DVT/VTE - Prophylaxis VTE/DVT Device ordered at admit?: Yes - AMI - Statin at Admit Aspirin Prescribed on Admit: Yes
--- NOTE | 2018-03-25 02:19 | XRAY Report ---
Reason: NG tube placement Procedure Date: 03/25/2018 Accession Number: [id number] / [id number] Procedure: XR - Chest 1 View X-Ray CPT Code: 03190 FULL RESULT: EXAM: CHEST RADIOGRAPHY EXAM DATE: 03/25/2018 02:07 AM. CLINICAL HISTORY: NG tube placement. COMPARISON: CHEST 2 VIEW 03/22/2018 2:00 PM. TECHNIQUE: 1 view. FINDINGS: Lungs/Pleura: No focal opacities evident. No pleural effusion. No pneumothorax. Mediastinum: Within exam limitations, the cardiomediastinal contour is normal. Other: Nasogastric tube terminating in the stomach. IMPRESSION: Nasogastric tube terminating in the stomach. RADIA
[2018-03-25] MEDS ORDERED: PHENOL THROAT SPRAY 177 ML MM PRN (05:28)
[2018-03-25] MEDS: metroNIDAZOLE 500 MG/100 ML 500 MG/100 ML BAG IV SCH ×3 (05:42→22:15)
[2018-03-25 05:44] LABS: BASOPHILS # (AUTO) 0.1 10^3/uL (0.0-0.1); BASOPHILS % (AUTO) 0.9 %; EOSINOPHILS # (AUTO) 0.1 10^3/uL (0.0-0.7); EOSINOPHILS % (AUTO) 1.2 %; HGB - HEMOGLOBIN 11.6 g/dL (12.0-16.0); LYMPHOCYTES # (AUTO) 1.2 10^3/uL (1.5-3.5); LYMPHOCYTES % (AUTO) 18.2 %; MEAN CORPUSCULAR HGB CONC 33.3 g/dL (32.0-36.0); MEAN CORPUSCULAR VOLUME 86.9 fL (81.0-99.0); MEAN PLATELET VOLUME 7.2 fL (7.9-10.8); MONOCYTES # (AUTO) 0.6 10^3/uL (0.0-1.0); NEUTROPHILS # (AUTO) 4.9 10^3/uL (1.5-6.6); NEUTROPHILS % (AUTO) 70.7 %; PLT - PLATELET COUNT 240 10^3/uL (130-450); RED BLOOD COUNT 3.99 10^6/uL (4.20-5.40); RED CELL DISTRIBUTION WIDTH 16.4 % (12.0-15.0); WHITE BLOOD COUNT 6.9 x10^3/uL (4.8-10.8)
[2018-03-25 05:49] LABS: CALCIUM 8.6 mg/dL (8.5-10.3); CREATININE 1.2 mg/dL (0.4-1.0)
[2018-03-25] MEDS ORDERED: POLYETHYLENE GLYCOL 3350 17 GM PACKET PO SCH (09:00)
[2018-03-25] MEDS: CIPROFLOXACIN 400 MG/200 ML 200 ML IV SCH ×2 (09:24→23:34)
--- NOTE | 2018-03-25 09:25 | PROVIDER PROGRESS NOTE ---
Subjective - Prog Note Date Prog Note Date: 03/25/18 Prog Note Time: 08:50 - Subjective Subjective: Patient reports slight stomach pain She has not passed gas On cipro/flagyl for diverticulitis She is on room air states that she is thirsty, denies hunger Current Medications - Current Medications Current Medications: Albuterol () 2.5 mg INH RTQ4H PRN PRN Reason: Wheezing Ciprofloxacin (Cipro 400 Mg/200 Ml) 200 mls @ 200 mls/hr IV Q12H [facility] Last Infusion: 03/25/18 10:34 Dose: Infused Metronidazole (Flagyl 500 Mg/100 Ml) 500 mg in 100 mls @ 100 mls/hr IV Q8H [facility] Last Infusion: 03/25/18 06:42 Dose: Infused Potassium Chloride/Sodium Chloride (Normal Saline 0.9% W/20 Meq Kcl) 1,000 mls @ 125 mls/hr IV .Q8H [facility] Last Admin: 03/25/18 09:24 Dose: 125 mls/hr Ondansetron HCl (Zofran Inj) 4 mg IVP Q6HR PRN PRN Reason: Nausea / Vomiting Phenol/Menthol (Chloraseptic) 2 sprays MM Q2HR PRN PRN Reason: Throat Pain Last Admin: 03/25/18 05:59 Dose: 2 sprays Sodium Chloride (Normal Saline Flush 0.9%) 10 ml IVP PRN PRN PRN Reason: NEEDED PER PROVIDER ORDERS Last Admin: 03/25/18 00:57 Dose: 10 ml Sodium Chloride (Normal Saline Flush 0.9%) 10 ml IVP 0100,0900,1700 [facility] Last Admin: 03/25/18 07:38 Dose: Not Given Home Medicattions: Levothyroxine [Synthroid] 25 mcg PO DAILY 11/02/13 Atorvastatin [Lipitor] 10 mg PO DAILY 04/06/14 Multivit-Min/FA/Lycopen/Lutein [Centrum Silver Tablet] 1 tab PO DAILY 12/18/14 Aspirin 81 mg PO DAILY 03/22/18 Objective - Vital Signs/Intake & Output Reviewed Vital Signs: Yes Vital Signs: Vital Signs x48h Temp Pulse Resp BP Pulse Ox 03/25/18 08:07 36.6 C 71 16 134/67 H 95 Intake & Output: Intake & Output 03/22/18 03/23/18 03/24/18 03/25/18 23:59 23:59 23:59 23:59 Intake Total 300 2051.667 Output Total 1350 Balance 300 701.667 - Objective General Appearance: positive: No acute distress, Alert Eyes Bilateral: positive: Normal inspection, PERRL, EOMI ENT: positive: Dry mucous membranes Neck: positive: Nml inspection, Trachea midline Respiratory: positive: Chest non-tender, No respiratory distress, Breath sounds nml. negative: Wheezes, Rales, Rhonchi Cardiovascular: positive: Regular rate & rhythm. negative: No murmur, No gallop, Tachycardia Peripheral Pulses: 2+ Dorsalis pedis (R), 2+ Dorsalis pedis (L) Abdomen: positive: No distention, Tenderness, Abnml bowel sounds (hypoactive). negative: Guarding, Rebound Skin: positive: Warm, Dry Neurologic/Psychiatric: positive: Oriented x3, CN's nml (2-12), Motor nml, Sensation nml, Mood/affect nml - Lab Results Fish Bones: 03/25/18 05:23 03/25/18 05:23 Other Labs: Lab Results x24hrs 03/25/18 03/25/18 03/24/18 Range/Units 05:23 05:23 20:11 WBC 6.9 (4.8-10.8) x10^3/uL RBC 3.99 L (4.20-5.40) 10^6/uL Hgb 11.6 L (12.0-16.0) g/dL Hct 34.7 L (37.0-47.0) % MCV 86.9 (81.0-99.0) fL MCH 29.0 (27.0-31.0) pg MCHC 33.3 (32.0-36.0) g/dL RDW 16.4 H (12.0-15.0) % Plt Count 240 (130-450) 10^3/uL MPV 7.2 L (7.9-10.8) fL Neut # (Auto) 4.9 (1.5-6.6) 10^3/uL Lymph # (Auto) 1.2 L (1.5-3.5) 10^3/uL [place] # (Auto) 0.6 (0.0-1.0) 10^3/uL Eos # (Auto) 0.1 (0.0-0.7) 10^3/uL Baso # (Auto) 0.1 (0.0-0.1) 10^3/uL Absolute Nucleated RBC 0.00 x10^3/uL Nucleated RBC % 0.0 /100WBC Sodium 136 (135-145) mmol/L Potassium 3.9 (3.5-5.0) mmol/L Chloride 99 L (101-111) mmol/L Carbon Dioxide 28 (21-32) mmol/L Anion Gap 9.0 (6-13) BUN 16 (6-20) mg/dL Creatinine 1.2 H (0.4-1.0) mg/dL Estimated GFR (MDRD) 43 L (>89) Glucose 92 (70-100) mg/dL Lactic Acid 1.0 (0.5-2.2) mmol/L Calcium 8.6 (8.5-10.3) mg/dL Total Bilirubin (0.2-1.0) mg/dL AST (10-42) IU/L ALT (10-60) IU/L Alkaline Phosphatase (42-121) IU/L Total Protein (6.7-8.2) g/dL Albumin (3.2-5.5) g/dL Globulin (2.1-4.2) g/dL Albumin/Globulin Ratio (1.0-2.2) Lipase (22-51) U/L 03/24/18 03/24/18 Range/Units 20:11 20:11 WBC 6.7 (4.8-10.8) x10^3/uL RBC 4.43 (4.20-5.40) 10^6/uL Hgb 12.9 (12.0-16.0) g/dL Hct 38.3 (37.0-47.0) % MCV 86.5 (81.0-99.0) fL MCH 29.0 (27.0-31.0) pg MCHC 33.5 (32.0-36.0) g/dL RDW 16.5 H (12.0-15.0) % Plt Count 280 (130-450) 10^3/uL MPV 7.2 L (7.9-10.8) fL Neut # (Auto) 5.7 (1.5-6.6) 10^3/uL Lymph # (Auto) 0.6 L (1.5-3.5) 10^3/uL [place] # (Auto) 0.3 (0.0-1.0) 10^3/uL Eos # (Auto) 0.0 (0.0-0.7) 10^3/uL Baso # (Auto) 0.1 (0.0-0.1) 10^3/uL Absolute Nucleated RBC 0.00 x10^3/uL Nucleated RBC % 0.0 /100WBC Sodium 133 L (135-145) mmol/L Potassium 4.0 (3.5-5.0) mmol/L Chloride 96 L (101-111) mmol/L Carbon Dioxide 25 (21-32) mmol/L Anion Gap 12.0 (6-13) BUN 19 (6-20) mg/dL Creatinine 1.3 H (0.4-1.0) mg/dL Estimated GFR (MDRD) 39 L (>89) Glucose 141 H (70-100) mg/dL Lactic Acid (0.5-2.2) mmol/L Calcium 9.2 (8.5-10.3) mg/dL Total Bilirubin 0.8 (0.2-1.0) mg/dL AST 26 (10-42) IU/L ALT 19 (10-60) IU/L Alkaline Phosphatase 74 (42-121) IU/L Total Protein 8.0 (6.7-8.2) g/dL Albumin 3.9 (3.2-5.5) g/dL Globulin 4.1 (2.1-4.2) g/dL Albumin/Globulin Ratio 1.0 (1.0-2.2) Lipase 43 (22-51) U/L ABX Reporting Has patient been on IV antibiotics over the past 48 hours?: Yes Assessment/Plan - Problem List (1) Small bowel obstruction Impression: Seen on CT scan. She has NG tube in place for decompression. She has not passed gas. Plan: continue NG tube to LIWS NPO, IV hydration Dr. Cantu has evaluated the patient today (2) Diverticulitis of gastrointestinal tract Impression: See on CT scan. Patient without elevated WBC and is afebrile Plan: Bowel rest. Continue IV cipro/flagyl (3) Urinary tract infection Impression: Klebsiella pneumoniae growing in urine cultures intermediate sensitivity to Macrobid. 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 She is at her baseline Plan: avoid hypotension and nephrotoxins renally dose medications (5) Hypothyroidism Plan: Resume synthroid when able to do so (6) Hyperlipidemia Plan: On atorvastatin, resume when able to take PO medications (7) Hypertension Plan: Not on any medications Monitor blood pressure
[2018-03-25] MEDS ORDERED: DIATR MEGLU/DIATRIZOATE SODIUM 120 ML BOTTLE PO ONE (09:43)
--- NOTE | 2018-03-25 09:58 | CONSULTATION NOTE ---
Referring Provider Name of Referring Provider:: Dr. Calvert Consult Date: 03/25/18 Chief Complaint - Chief Complaint Chief Complaint: abd pain History of Present Illness - Admitted From Admitted From:: ER - History Obtained From Records Reviewed: yes History obtained from: pt, records Exam Limitations: none - History of Present Illness HPI Comment/Other: 82 yo female with approximately 3 days of intermittent crampy generalized abdominal pain associated with N/V. She was seen in the ER 2 days ago with a benign abdomen, no signs of significant distress although a CT scan was concerning for a partial SBO. She was managed as an outpatient with clear liquid diet and advised to return if N/V recurred, which it did yesterday evening, prompting reevaluation in the ER last night and admission. Repeat CT continues to show evidence of a small bowel obstruction, with in addition, thickening of the sigmoid colon c/w diverticulitis. She reports regular daily bms, including a loose stool yesterday, no melena, but occasional small amounts of BRBPR on the toilet paper. She reports having had multiple prior colonoscopies, most recently sometime within the past 10 yrs. No recent wt loss, neg FH GI tumors, no frequent heartburn or indigestion or dysphagia. She s/p appendectomy and hysterectomy for benign disease. History - Past Medical History Cardiovascular: reports: Hypertension, High cholesterol Respiratory: reports: Asthma Neuro: reports: None Endocrine/Autoimmune: reports: HyPOthyroidism GI: reports: Chronic constipation, Hemorrhoids, Other [employer]: reports: None : reports: None HEENT: reports: Chronic sinusitis Psych: reports: None Musculoskeletal: reports: None Derm: reports: None MRSA Hx?: No - Past Surgical History General: reports: Appendectomy, Colonoscopy /[employer] WORKER: reports: Hysterectomy HEENT: reports: Cataracts, Tonsil/Adenoidectomy - Family & Social History Family History Comment/Other: patient denied any significant family history Living arrangement: At home Living Situation: Alone - Substance History Use: Uses substance without health or social issues: NONE - POLST Patient has POLST: Yes POLST Status: Full Code Meds/Allgy - Home Medications Home Medications: Ambulatory Orders Medication Instructions Recorded Confirmed Levothyroxine [Synthroid] 25 mcg PO DAILY 11/02/13 03/25/18 Atorvastatin [Lipitor] 10 mg PO DAILY 04/06/14 03/25/18 Multivit-Min/FA/Lycopen/Lutein 1 tab PO DAILY 12/18/14 03/25/18 [Centrum Silver Tablet] Albuterol Sulf [Ventolin Hfa 1 - 2 puffs INH Q4HR PRN #1 inhaler 02/20/18 03/25/18 Inhaler] Aspirin 81 mg PO DAILY 03/22/18 03/25/18 Benzonatate [Tessalon Perle] 100 - 200 mg PO TID PRN #30 capsule 03/22/18 03/25/18 Nitrofurantoin Monohyd/M-Cryst 100 mg PO BID #10 capsule 03/22/18 03/25/18 [Macrobid 100 mg Capsule] - Allergies Allergies/Adverse Reactions: Allergies Allergy/AdvReac Type Severity Reaction Status Date / Time aztreonam Allergy Unknown Dizziness Verified 03/24/18 19:35 carbamazepine Allergy Unknown Dizziness Verified 03/24/18 19:35 Cephalosporins Allergy Unknown Dizziness Verified 03/24/18 19:35 Penicillins Allergy Unknown Dizziness Verified 03/24/18 19:35 Review of Systems - Constitutional Constitutional: denies: Fever, Chills, Weight gain, Weight loss - Cardiovascular Cariovascular: denies: Chest pain - Respiratory Respiratory: denies: Cough, Sputum production - Gastrointestinal Gastrointestinal: reports: Abdominal pain, Abdominal distention, Rectal bleeding (minor once a month, on toilet paper), Nausea, Vomiting, Bile emesis, Bloating. denies: Constipation, Diarrhea, Change in bowel habits, Black stools, Jose E blood emesis, Coffee grounds emesis, Reflux/heartburn - Hematologic/Lymphatic Hematologic/Lymphatic: reports: Blood clots (she reports what sounds like a peripheral arterial angioplasty procedure on the right lower ext). denies: Bleeding tendencies - All Other Systems All Other Systems: reports: Reviewed and negative Exam - Vital Signs Reviewed Vital Signs: Yes Vital Signs: Vital Signs x48h Temp Pulse Resp BP Pulse Ox 03/25/18 08:07 36.6 C 71 16 134/67 H 95 - Physical Exam General Appearance: positive: No acute distress, Alert Eyes Bilateral: positive: Conjunctivae nml, No scleral icterus ENT: positive: ENT inspection nml, Pharynx nml, No signs of dehydration, Other (NG tube in place) Neck: positive: Nml inspection, No JVD. negative: Lymphadenopathy (R), Lymph adenopathy (L) Respiratory: positive: Chest non-tender, No respiratory distress, Breath sounds nml Cardiovascular: positive: Regular rate & rhythm, No murmur, No gallop Abdomen: positive: Non-tender, No organomegaly, No distention, Abnml bowel sounds (hyperactive). negative: Guarding, Rebound, Hepatomegaly, Splenomegaly, Mass Skin: positive: Color nml, No rash, Warm, Dry. negative: Cyanosis Extremities: positive: No pedal edema. negative: Calf tenderness Neurologic/Psychiatric: positive: Oriented x3 Conclusion/Plan - Diagnosis Diagnosis: 1.small bowel obstruction, most likely due to adhesions; no evidence of malignancy or strangulation obstruction at present; her sx have markedly improved with NG suction. 2. CT findings suspicious for sigmoid diverticulitis; clinically there is no evidence for same. - Plan Plan: Bowel rest, IVF, NG suction, gastrograffin challenge test today. Will follow, thanks, - Lab Results Fish Bones: 03/25/18 05:23 03/25/18 05:23 - Diagnostic Imaging Results Diagnostic Imaging Results: positive: Final report reviewed, Read independently Diagnostic Imaging Results Comments: see HPI
--- NOTE | 2018-03-25 11:50 | XRAY Report ---
Reason: gastrograffin challenge test Procedure Date: 03/25/2018 Accession Number: [id number] / [id number] Procedure: XR - Abdomen 1 View X-Ray CPT Code: 62584 FULL RESULT: EXAM: ABDOMEN RADIOGRAPHY EXAM DATE: 03/25/2018 11:34 AM. CLINICAL HISTORY: Gastrografin challenge test. Small bowel obstruction on CT prior day. COMPARISON: RIBS W/PA CHEST LT 12/18/2014 1:15 PM ABDOMEN/PELVIS W/ 03/24/2018 9:10 PM. TECHNIQUE: 2 view. Initial AP cartridge loading operator film of the abdomen with subsequent immediate film after drinking Gastrografin. FINDINGS: Bowel Gas Pattern: Gastrografin is noted within stomach, duodenum and proximal jejunum. There is less dense enteric contrast within small bowel from abdominal CT prior evening. Other: Excreted contrast within urinary bladder related to CT prior day. No free air. Enteric tube loops within the lower gastric body and antrum. IMPRESSION: 1. Gastrografin is noted within the stomach, duodenum and proximal jejunum. 2. Faint enteric contrast within small bowel from CT prior evening. RADIA
--- NOTE | 2018-03-25 16:42 | XRAY Report ---
Reason: f/u gastrograffin challenge Procedure Date: 03/25/2018 Accession Number: [id number] / [id number] Procedure: XR - Abdomen 1 View X-Ray CPT Code: 67390 FULL RESULT: EXAM: ABDOMEN RADIOGRAPHY EXAM DATE: 03/25/2018 03:32 PM. CLINICAL HISTORY: F/u gastrograffin challenge. COMPARISON: Earlier today. TECHNIQUE: 1 view. FINDINGS IMPRESSION: Gastrografin is seen throughout the small bowel and colon as far distally as the rectum. Nasogastric tube remains in place. RADIA
[2018-03-25] MEDS: ALBUTEROL NEB 2.5 MG/3 ML INH PRN (22:54)
--- NOTE | 2018-03-26 06:06 | XRAY Report ---
Reason: NG PLACEMENT VERIFICATION Procedure Date: 03/25/2018 Accession Number: [id number] / [id number] Procedure: XR - Chest for Line Placement CPT Code: FULL RESULT: EXAM: CHEST RADIOGRAPHY EXAM DATE: 03/25/2018 02:53 PM. CLINICAL HISTORY: NG PLACEMENT VERIFICATION. COMPARISON: CHEST 1 VIEW 03/25/2018 1:53 AM. TECHNIQUE: 1 view. FINDINGS: Lungs/Pleura: No focal opacities evident. No pleural effusion. No pneumothorax. Mediastinum: Heart size upper normal. Aorta is mild aortic spray aortic atherosclerosis. Other: Orogastric tube present with the tip in the proximal stomach. Adjacent density material possibly contrast is present adjacent to the distal orogastric tube within the stomach lumen. IMPRESSION: 1. Orogastric tube present with the tip in the proximal stomach with adjacent high density material possibly contrast within the stomach lumen. RADIA
[2018-03-26 06:12] LABS: CREATININE 1.1 mg/dL (0.4-1.0)
--- NOTE | 2018-03-26 06:33 | XRAY Report ---
Reason: gastrograffin challenge Procedure Date: 03/26/2018 Accession Number: [id number] / [id number] Procedure: XR - Abdomen 2 View X-Ray CPT Code: 37619 FULL RESULT: EXAM: ABDOMEN RADIOGRAPHY EXAM DATE: 03/26/2018 06:20 AM. CLINICAL HISTORY: Gastrograffin challenge. COMPARISON: ABDOMEN 1 VIEW 03/25/2018 3:17 PM. TECHNIQUE: 2 views. FINDINGS: Lung Bases: Unremarkable. Bowel Gas Pattern: Persistent gaseous dilatation of small bowel loops. Minimal residual oral contrast in colonic diverticula and the distal colon. Free Air: None. Other: None. IMPRESSION: Stable gaseous small bowel dilatation. Minimal retained contrast in the distal colon and colonic diverticula. RADIA
[2018-03-26] MEDS: SODIUM CHLORIDE FLUSH 0.9% 10 ML SYRINGE IVP PRN (06:34)
[2018-03-26] MEDS: metroNIDAZOLE 500 MG/100 ML 500 MG/100 ML BAG IV SCH ×2 (06:34→13:18)
[2018-03-26] MEDS: SODIUM CHLORIDE FLUSH 0.9% 10 ML SYRINGE IVP SCH ×2 (07:54→17:04)
--- NOTE | 2018-03-26 08:18 | PROVIDER PROGRESS NOTE ---
Assessment/Plan - Problem List (1) Small bowel obstruction Assessment/Plan: Improving rapidly. Rec: start clear liquid diet, adv to full liquids as river; perhaps home later today on diet low in insoluble fiber. (2) Diverticulitis of gastrointestinal tract Assessment/Plan: doubt present; rec: d/c antibiotics. - Current Meds Current Meds: Current Medications Generic Name Dose Route Start Last Admin Trade Name Freq PRN Reason Stop Dose Admin Albuterol 2.5 mg 03/25/18 10:28 03/25/18 22:54 INH 2.5 mg RTQ4H PRN Administration Wheezing Ciprofloxacin 200 mls @ 200 mls/hr 03/25/18 10:00 03/26/18 02:04 Cipro 400 Mg/200 Ml IV Infused Q12H [facility] Infusion Metronidazole 500 mg in 100 mls @ 100 mls/hr 03/25/18 06:00 03/26/18 07:53 Flagyl 500 Mg/100 Ml IV Infused Q8H [facility] Infusion Potassium Chloride/Sodium Chloride 1,000 mls @ 100 mls/hr 03/25/18 17:47 03/26/18 07:54 Normal Saline 0.9% W/20 Meq Kcl IV 100 mls/hr .Q10H [facility] Infusion Phenol/Menthol 2 sprays 03/25/18 05:28 03/25/18 05:59 Chloraseptic MM 2 sprays Q2HR PRN Administration Throat Pain Sodium Chloride 10 ml 03/24/18 23:15 03/26/18 06:34 Normal Saline Flush 0.9% IVP 10 ml PRN PRN Administration NEEDED PER PROVIDER ORDERS Sodium Chloride 10 ml 03/25/18 01:00 03/26/18 07:54 Normal Saline Flush 0.9% IVP Not Given 0100,0900,1700 PATEL - Lab Result Lab results reviewed: Yes Fish Bone Diagrams: 03/25/18 05:23 03/26/18 05:45 - Diagnostic Imaging Results Diagnostic Imaging Results: Final report reviewed, Read independently Diagnostic Imaging Results Comments: RUSSELL yesterday afternoon showed gastrograffin in colon 2 view abd this am: decreased caliber of small bowel, a/f levels in colon, not small bowel. - Additional Planning Condition/Complexity: Improved My Orders: My Active Orders 03/25/18 17:47 Ns W/20 Meq KCl [Normal Saline 0.9% W/20 Meq KCl] 1,000 ml IV 100 mls/hr Plan Discussed with:: Patient, Other (hospitalist) Time Spent: 15-30 minutes Subjective - Subjective Patient Reports: Feeling Better, Resting Comfortably, No Complaints, Diarrhea (4 loose stools yesterday, one overnight) Objective Vital Signs: Vital Signs - 24 hr 03/25/18 03/25/18 03/25/18 12:00 15:34 20:00 Temperature 36.5 C 36.6 C 36.8 C Heart Rate Heart Rate [ 111 H 71 84 Brachial] Respiratory 16 16 16 Rate Blood Pressure 150/97 H 142/70 H 149/72 H [Left Brachial artery] O2 Saturation 96 94 96 03/25/18 03/26/18 03/26/18 22:56 00:00 04:08 Temperature 36.7 C 36.7 C Heart Rate 100 80 Heart Rate [ 80 Brachial] Respiratory 20 17 17 Rate Blood Pressure 147/62 H [Left Brachial artery] O2 Saturation 96 96 03/26/18 06:25 Temperature 36.6 C Heart Rate Heart Rate [ 76 Brachial] Respiratory 18 Rate Blood Pressure 141/72 H [Left Brachial artery] O2 Saturation 95 Oxygen O2 Source Room air I&O (Last 24 Hrs): Intake and Output Totals x24h 03/24/18 03/25/18 03/26/18 23:59 23:59 23:59 Intake Total 300 3976.667 1038.333 Output Total 1350 Balance 300 2626.667 1038.333 General: Alert, Oriented x3, Cooperative, No acute distress Neck: No JVD Neuro: Alert Abdomen: Soft, No tenderness, No hepatospenomegaly, No masses, Other (hyperactive bowel tones with rushes) Extremities: No edema, No tenderness/swelling - Results Results: Laboratory Results WBC 6.9 x10^3/uL (4.8-10.8) 03/25/18 05:23 RBC 3.99 10^6/uL (4.20-5.40) L 03/25/18 05:23 Hgb 11.6 g/dL (12.0-16.0) L 03/25/18 05:23 Hct 34.7 % (37.0-47.0) L 03/25/18 05:23 MCV 86.9 fL (81.0-99.0) 03/25/18 05:23 MCH 29.0 pg (27.0-31.0) 03/25/18 05:23 MCHC 33.3 g/dL (32.0-36.0) 03/25/18 05:23 RDW 16.4 % (12.0-15.0) H 03/25/18 05:23 Plt Count 240 10^3/uL (130-450) 03/25/18 05:23 MPV 7.2 fL (7.9-10.8) L 03/25/18 05:23 Neut # (Auto) 4.9 10^3/uL (1.5-6.6) 03/25/18 05:23 Lymph # (Auto) 1.2 10^3/uL (1.5-3.5) L 03/25/18 05:23 [place] # (Auto) 0.6 10^3/uL (0.0-1.0) 03/25/18 05:23 Eos # (Auto) 0.1 10^3/uL (0.0-0.7) 03/25/18 05:23 Baso # (Auto) 0.1 10^3/uL (0.0-0.1) 03/25/18 05:23 Absolute Nucleated RBC 0.00 x10^3/uL 03/25/18 05:23 Nucleated RBC % 0.0 /100WBC 03/25/18 05:23 Sodium 142 mmol/L (135-145) 03/26/18 05:45 Potassium 4.1 mmol/L (3.5-5.0) 03/26/18 05:45 Chloride 111 mmol/L (101-111) 03/26/18 05:45 Carbon Dioxide 24 mmol/L (21-32) 03/26/18 05:45 Anion Gap 7.0 (6-13) 03/26/18 05:45 BUN 16 mg/dL (6-20) 03/26/18 05:45 Creatinine 1.1 mg/dL (0.4-1.0) H 03/26/18 05:45 Estimated GFR (MDRD) 47 (>89) L 03/26/18 05:45 Glucose 87 mg/dL (70-100) 03/26/18 05:45 Lactic Acid 1.0 mmol/L (0.5-2.2) 03/24/18 20:11 Calcium 8.0 mg/dL (8.5-10.3) L 03/26/18 05:45 Total Bilirubin 0.8 mg/dL (0.2-1.0) 03/24/18 20:11 AST 26 IU/L (10-42) 03/24/18 20:11 ALT 19 IU/L (10-60) 03/24/18 20:11 Alkaline Phosphatase 74 IU/L (42-121) 03/24/18 20:11 Total Protein 8.0 g/dL (6.7-8.2) 03/24/18 20:11 Albumin 3.9 g/dL (3.2-5.5) 03/24/18 20:11 Globulin 4.1 g/dL (2.1-4.2) 03/24/18 20:11 Albumin/Globulin Ratio 1.0 (1.0-2.2) 03/24/18 20:11 Lipase 43 U/L (22-51) 03/24/18 20:11 Sepsis Event Note (H) - Evaluation Possible source of Sepsis: positive: Genitourinary ABX Reporting Has patient been on IV antibiotics over the past 48 hours?: No
[2018-03-26 08:55] LABS: BASOPHILS # (AUTO) 0.1 10^3/uL (0.0-0.1); BASOPHILS % (AUTO) 1.1 %; EOSINOPHILS # (AUTO) 0.3 10^3/uL (0.0-0.7); EOSINOPHILS % (AUTO) 5.7 %; HGB - HEMOGLOBIN 10.8 g/dL (12.0-16.0); LYMPHOCYTES # (AUTO) 1.1 10^3/uL (1.5-3.5); MEAN CORPUSCULAR HEMOGLOBIN 28.4 pg (27.0-31.0); MEAN CORPUSCULAR HGB CONC 32.6 g/dL (32.0-36.0); MEAN PLATELET VOLUME 6.8 fL (7.9-10.8); MONOCYTES # (AUTO) 0.5 10^3/uL (0.0-1.0); MONOCYTES % (AUTO) 9.4 %; NEUTROPHILS # (AUTO) 3.5 10^3/uL (1.5-6.6); NEUTROPHILS % (AUTO) 63.8 %; PLT - PLATELET COUNT 214 10^3/uL (130-450); RED BLOOD COUNT 3.79 10^6/uL (4.20-5.40); RED CELL DISTRIBUTION WIDTH 16.4 % (12.0-15.0); WHITE BLOOD COUNT 5.5 x10^3/uL (4.8-10.8)
[2018-03-26] MEDS: CIPROFLOXACIN 400 MG/200 ML 200 ML IV SCH ×2 (09:05→22:19)
[2018-03-26] MEDS: NS W/20 MEQ KCL 1,000 ML IV SCH (09:05)
[2018-03-26] MEDS: ONDANSETRON 4 MG/2 ML VIAL IVP PRN (09:10)
[2018-03-26] MEDS ORDERED: BENZONATATE 100 MG CAPSULE PO PRN (14:49)
[2018-03-26] MEDS: OXYMETAZOLINE NASAL SPRAY NAS SCH ×3 (16:12→22:51)
[2018-03-26] MEDS: FLUTICASONE NASAL SPRAY NAS SCH (16:13)
[2018-03-26] MEDS: WHEAT DEXTRIN POWDER PACKET PO SCH (16:26)
[2018-03-26] MEDS: ALBUTEROL NEB 2.5 MG/3 ML INH PRN (16:45)
[2018-03-27] MEDS: ONDANSETRON 4 MG/2 ML VIAL IVP PRN
[2018-03-27] MEDS: metroNIDAZOLE 500 MG/100 ML 500 MG/100 ML BAG IV SCH ×2 (05:49)
[2018-03-27 06:08] LABS: BASOPHILS # (AUTO) 0.1 10^3/uL (0.0-0.1); BASOPHILS % (AUTO) 1.3 %; EOSINOPHILS # (AUTO) 0.6 10^3/uL (0.0-0.7); EOSINOPHILS % (AUTO) 10.7 %; HGB - HEMOGLOBIN 10.3 g/dL (12.0-16.0); LYMPHOCYTES # (AUTO) 1.4 10^3/uL (1.5-3.5); LYMPHOCYTES % (AUTO) 23.3 %; MEAN CORPUSCULAR HEMOGLOBIN 28.9 pg (27.0-31.0); MEAN CORPUSCULAR HGB CONC 32.5 g/dL (32.0-36.0); MEAN CORPUSCULAR VOLUME 88.7 fL (81.0-99.0); MEAN PLATELET VOLUME 7.4 fL (7.9-10.8); MONOCYTES # (AUTO) 0.5 10^3/uL (0.0-1.0); MONOCYTES % (AUTO) 7.9 %; NEUTROPHILS # (AUTO) 3.4 10^3/uL (1.5-6.6); NEUTROPHILS % (AUTO) 56.8 %; PLT - PLATELET COUNT 223 10^3/uL (130-450); RED BLOOD COUNT 3.57 10^6/uL (4.20-5.40); RED CELL DISTRIBUTION WIDTH 16.7 % (12.0-15.0); WHITE BLOOD COUNT 5.9 x10^3/uL (4.8-10.8)
[2018-03-27 06:12] LABS: CALCIUM 8.2 mg/dL (8.5-10.3); CREATININE 1.1 mg/dL (0.4-1.0)
[2018-03-27] MEDS: ALBUTEROL NEB 2.5 MG/3 ML INH PRN (06:30)
--- NOTE | 2018-03-27 08:13 | PROVIDER PROGRESS NOTE ---
Subjective - Prog Note Date Prog Note Date: 03/26/18 Prog Note Time: 17:00 - Subjective Pt reports feeling: Improved Subjective: Jessica complains of ongoing nausea, no vomiting and has mucous draining from her nose. She denies chest pain, shortness of breath, dizziness, or bleeding on exam. Objective - Vital Signs/Intake & Output Reviewed Vital Signs: Yes Vital Signs: Vital Signs x48h Temp Pulse Pulse Resp BP Pulse Ox 03/27/18 07:54 36.6 C 79 20 129/61 94 03/27/18 06:30 81 20 03/27/18 05:33 36.7 C 85 18 141/60 H 94 03/27/18 00:11 36.8 C 79 18 154/72 H 98 Intake & Output: Intake & Output 03/24/18 03/25/18 03/26/18 03/27/18 23:59 23:59 23:59 23:59 Intake Total 300 3976.667 3191.333 500 Output Total 1350 Balance 300 2626.667 3191.333 500 - Objective General Appearance: positive: Alert, Mild distress, Anxious Eyes Bilateral: positive: PERRL Eyes: OU Conjunctivae pale ENT: positive: Purulent nasal drainage, Pharyngeal erythema, Dry mucous membranes Neck: positive: Thyroid nml, No JVD, Trachea midline, Lymphadenopathy (R), Lymphadenopathy (L) Respiratory: positive: Chest non-tender, No respiratory distress, Other (crackles) Cardiovascular: positive: Regular rate & rhythm, No gallop, Systolic murmur Peripheral Pulses: 2+ Radial (R), 2+ Radial (L) Abdomen: positive: Nml bowel sounds, Tenderness, Guarding Back: positive: Nml inspection Skin: positive: No rash, Warm, Dry Extremities: positive: Non-tender, Full ROM, Nml appearance, No pedal edema Neurologic/Psychiatric: positive: CN's nml (2-12), Disoriented to time, Weakness, Sensory loss, Slurred/abnml speech, Depressed mood/affect Reflexes: Bicep (R): 3+, Bicep (L): 3+ - Lab Results Fish Bones: 03/27/18 05:28 03/27/18 05:28 Other Labs: Lab Results x24hrs 03/27/18 03/27/18 03/27/18 Range/Units 05:28 05:28 05:28 WBC 5.9 (4.8-10.8) x10^3/uL RBC 3.57 L (4.20-5.40) 10^6/uL Hgb 10.3 L (12.0-16.0) g/dL Hct 31.7 L (37.0-47.0) % MCV 88.7 (81.0-99.0) fL MCH 28.9 (27.0-31.0) pg MCHC 32.5 (32.0-36.0) g/dL RDW 16.7 H (12.0-15.0) % Plt Count 223 (130-450) 10^3/uL MPV 7.4 L (7.9-10.8) fL Neut # (Auto) 3.4 (1.5-6.6) 10^3/uL Lymph # (Auto) 1.4 L (1.5-3.5) 10^3/uL [place] # (Auto) 0.5 (0.0-1.0) 10^3/uL Eos # (Auto) 0.6 (0.0-0.7) 10^3/uL Baso # (Auto) 0.1 (0.0-0.1) 10^3/uL Absolute Nucleated RBC 0.00 x10^3/uL Nucleated RBC % 0.0 /100WBC Sodium 139 (135-145) mmol/L Potassium 3.2 L (3.5-5.0) mmol/L Chloride 109 (101-111) mmol/L Carbon Dioxide 22 (21-32) mmol/L Anion Gap 8.0 (6-13) BUN 12 (6-20) mg/dL Creatinine 1.1 H (0.4-1.0) mg/dL Estimated GFR (MDRD) 47 L (>89) Glucose 89 (70-100) mg/dL Calcium 8.2 L (8.5-10.3) mg/dL Magnesium 1.9 (1.7-2.8) mg/dL 03/26/18 Range/Units 08:50 WBC 5.5 (4.8-10.8) x10^3/uL RBC 3.79 L (4.20-5.40) 10^6/uL Hgb 10.8 L (12.0-16.0) g/dL Hct 32.9 L (37.0-47.0) % MCV 87.0 (81.0-99.0) fL MCH 28.4 (27.0-31.0) pg MCHC 32.6 (32.0-36.0) g/dL RDW 16.4 H (12.0-15.0) % Plt Count 214 (130-450) 10^3/uL MPV 6.8 L (7.9-10.8) fL Neut # (Auto) 3.5 (1.5-6.6) 10^3/uL Lymph # (Auto) 1.1 L (1.5-3.5) 10^3/uL [place] # (Auto) 0.5 (0.0-1.0) 10^3/uL Eos # (Auto) 0.3 (0.0-0.7) 10^3/uL Baso # (Auto) 0.1 (0.0-0.1) 10^3/uL Absolute Nucleated RBC 0.00 x10^3/uL Nucleated RBC % 0.1 /100WBC Sodium (135-145) mmol/L Potassium (3.5-5.0) mmol/L Chloride (101-111) mmol/L Carbon Dioxide (21-32) mmol/L Anion Gap (6-13) BUN (6-20) mg/dL Creatinine (0.4-1.0) mg/dL Estimated GFR (MDRD) (>89) Glucose (70-100) mg/dL Calcium (8.5-10.3) mg/dL Magnesium (1.7-2.8) mg/dL ABX Reporting Has patient been on IV antibiotics over the past 48 hours?: Yes Sepsis Event Note (H) - Evaluation Current Stage of Sepsis: Ruled out Possible source of Sepsis: positive: Genitourinary Assessment/Plan - Problem List (1) Small bowel obstruction Impression: Imaging showed dilated bowel loops, and an obstruction. No NG tube was needed Bowel rest Tolerating CL diet Plan: Advance diet as tolerated, encourage ambulation (2) Diverticulitis of gastrointestinal tract Impression: Imaging shows evidence of diverticulosis Treated with cipro/flagyl on admission that will not be continued upon discharge Plan: Benefiber daily (3) CKD (chronic kidney disease), stage III Impression: Admission, creatinine was elevated to 1.3, baseline ~1.1, which was today's value Plan: routine labs (4) COPD (chronic obstructive pulmonary disease) Impression: The patient's COPD is not properly managed at home, so inhalers have been sent to the pharmacy Plan: Support breathing, offer nebs Qualifiers: COPD type: emphysema (5) Allergic rhinitis Impression: The patient admits to almost daily headaches She has copius mucous production No home oxygen Plan: Afrin nasal spray x3 days, daily flonase Qualifiers: Allergic rhinitis seasonality: non-seasonal
[2018-03-27] MEDS ORDERED: ASPIRIN CHEW 81 MG TABLET PO SCH (09:00)
[2018-03-27] MEDS ORDERED: LEVOTHYROXINE 25 MCG TABLET PO SCH (09:00)
[2018-03-27] MEDS ORDERED: ATORVASTATIN 10 MG TABLET PO SCH (09:00)
[2018-03-27] MEDS: WHEAT DEXTRIN POWDER PACKET PO SCH ×3 (09:24→12:12)
[2018-03-27] MEDS: FLUTICASONE NASAL SPRAY NAS SCH (09:25)
[2018-03-27] MEDS: OXYMETAZOLINE NASAL SPRAY NAS SCH (09:25)
[2018-03-27] MEDS: SODIUM CHLORIDE FLUSH 0.9% 10 ML SYRINGE IVP SCH ×2 (10:43)
--- NOTE | 2018-03-27 11:21 | Discharge Plan ---
Discharge Plan Disposition: Home, Self Care Condition: Good Prescriptions: Fluticasone [Flonase] 1 sprays JESSICA DAILY #1 bottle Fluticasone/Salmeterol [Advair 250-50 Diskus] 1 each IH BID #1 blst.w.dev Montelukast [Singulair] 10 mg PO QPM #30 tablet Tiotropium [place] [Spiriva] 18 mcg IH DAILY #30 cap.w.dev Wheat Dextrin [Benefiber] 1 packet PO DAILY #30 packet Diet: Regular Activity Restrictions: Activity as Tolerated Shower Restrictions: No Instruction Topics: Fluticasone nasal spray, Tiotropium respiratory inhalation spray Spiriva Respimat, Fluticasone Salmeterol inhalation aerosol, Obstruction Sm Bowel, Urinary Tract Infecs Women Additional Instructions or Follow Up instructions: You were admitted for a small bowel obstruction. With bowel rest, this res olved. On imaging, you were found to have diverticulosis. The shelter treatment for this is to take Benefiber daily. You were also found to have sinusitis with over mucous production and were pre scribed nasal sprays. For the proper treatment of your COPD, I have sent 2 other inhalers and a nightly dose of Singular. These are for shelter use. Please see your PCP within one week. No Smoking: If you smoke, Please STOP! Call for help. Follow-up with: Kaylan Hewitt MD [Primary Care Provider] -
--- NOTE | 2018-03-27 11:37 | DISCHARGE SUMMARY ---
Discharge Summary Admit Date: 03/24/18 Discharge Date: 03/27/18 Discharging Provider: IAM Obrien Primary Care Provider: Dr. Hewitt Code Status: Do Not Attempt Resuscitation Condition at Discharge: Good Discharge Disposition: 01 Home, Self Care - DIAGNOSES Admission Diagnoses: Unsp intestnl obst, unsp as to partial versus complete obst (K56.609) Dvtrcli of intest, part unsp, w/o perf or abscess w/o bleed (K57.92) Urinary tract infection, site not specified (N39.0) Hypothyroidism, unspecified (E03.9) Hyperlipidemia, unspecified (E78.5) Essential (primary) hypertension (I10) Discharge Diagnoses with Status of Each Condition: Small bowel obstruction (K56.609) resolved Diverticulitis of gastrointestinal tract (K57.92) No further treatment, resolved Allergic rhinitis (J30.9) chronic, stable CKD (chronic kidney disease) stage 3, GFR 30-59 ml/min (N18.3) chronic, stable COPD (chronic obstructive pulmonary disease) (J44.9) chronic stable Diverticulosis (K57.90) continue Benefiber daily - HPI History of Present Illness: HPI per Dr. Reece: Patient is an 82 y/o female who presented to the ED with complain of worsening abdominal pain, nausea and vomiting. She had been seen 2 days ago for nausea vomiting. She was found to have a UTI and placed on macrobid. She was advised to go on a bowel rest for 24 hours, but to return if the nausea and vomiting or abdominal pain worsened. After the 24 hours of bowel rest she had a bowl of vegetable soup and began experiencing nausea and vomiting. She had abdominal pain she could only repeatedly describe as "terrible". In the ED work up included a CT of the abdomen/pelvis which showed a mid to distal small bowel obstruction with transition zone noted. It also showed diverticulitis. She had an NG tube place which significant relieved her pain. At bedside, she appears very comfortable and rates her pain as 0/10. She denies chest pain, JONATHAN or fever. She is however always cold. The urine culture from her previous visit grew Klebsiella with intermediate sensitivity to the macrobid she was taking. As a result of all of these findings, she is being admitted for further evaluation and treatment. - HOSPITAL COURSE Hospital Course: The patient was found to have a mid to distal SBO that resolved with bowel rest, and a gastro graffin challenge imaging study. She was started on Flagyl and cipro IV that was not continued to treat diverticulitis as she had no WBC count, no evidence of sepsis, and remained afebrile throughout her stay. For her initial bladder complaints, she was given IV fluids, but these complaints subsided and we suspect slight dehydration which caused dysuria. Her diet was advanced and she was tolerating a regular diet prior to going home. She was found to have untreated COPD and sinusitis. New prescriptions for those treatments were sent to her pharmacy along with a daily Benefiber which she was instructed to take for her chronic diverticulosis. She was medically stable prior to discharge home via family. - ALLERGIES Allergies/Adverse Reactions: Allergies Allergy/AdvReac Type Severity Reaction Status Date / Time aztreonam Allergy Unknown Dizziness Verified 03/24/18 19:35 carbamazepine Allergy Unknown Dizziness Verified 03/24/18 19:35 Cephalosporins Allergy Unknown Dizziness Verified 03/24/18 19:35 Penicillins Allergy Unknown Dizziness Verified 03/24/18 19:35 - MEDICATIONS Home Medications: Ambulatory Orders Medication Instructions Recorded Confirmed Levothyroxine [Synthroid] 25 mcg PO DAILY 11/02/13 03/25/18 Atorvastatin [Lipitor] 10 mg PO DAILY 04/06/14 03/25/18 Multivit-Min/FA/Lycopen/Lutein 1 tab PO DAILY 12/18/14 03/25/18 [Centrum Silver Tablet] Albuterol Sulf [Ventolin Hfa 1 - 2 puffs INH Q4HR PRN #1 inhaler 02/20/18 03/25/18 Inhaler] Aspirin 81 mg PO DAILY 03/22/18 03/25/18 Benzonatate [Tessalon Perle] 100 - 200 mg PO TID PRN #30 capsule 03/22/18 03/25/18 Nitrofurantoin Monohyd/M-Cryst 100 mg PO BID #10 capsule 03/22/18 03/25/18 [Macrobid 100 mg Capsule] Fluticasone [Flonase] 1 sprays JESSICA DAILY #1 bottle 03/27/18 Fluticasone/Salmeterol [Advair 1 each IH BID #1 blst.w.dev 02/15/19 250-50 Diskus] Montelukast [Singulair] 10 mg PO QPM #30 tablet 03/27/18 Tiotropium [place] [Spiriva] 18 mcg IH DAILY #30 cap.w.dev 03/27/18 Wheat Dextrin [Benefiber] 1 packet PO DAILY #30 packet 03/27/18 - PHYSICAL EXAM AT DISCHARGE General Appearance: positive: No acute distress, Alert Eyes Bilateral: positive: PERRL, Conjunctivae nml ENT: positive: Pharyngeal erythema, Dry mucous membranes, Other ([place]) Neck: positive: Thyroid nml, No JVD, Lymphadenopathy (R), Lymphadenopathy (L), Stiff neck Respiratory: positive: Chest non-tender, No respiratory distress, Breath sounds nml Cardiovascular: positive: Regular rate & rhythm, No gallop, Systolic murmur, Decreased pulse(s) Peripheral Pulses: positive: 1+ Abdomen: positive: Non-tender, Nml bowel sounds, No distention Back: positive: Nml inspection Skin: positive: Color nml, No rash, Warm, Dry Extremities: positive: Non-tender, Full ROM, Nml appearance, No pedal edema Neurologic/Psychiatric: positive: Disoriented to time, Weakness, Sensory loss, Slurred/abnml speech, Depressed mood/affect, Other (baseline dementia) Reflexes: Bicep (R): 3+, Bicep (L): 3+ - LABS Result Diagrams: 03/27/18 05:28 03/27/18 05:28 - DIAGNOSTIC IMAGING Diagnostic Imaging Results: Final report reviewed Diagnostic Imaging Results Comments: EXAM: CT ABDOMEN AND PELVIS EXAM DATE: 03/24/2018 09:27 PM. IMPRESSION: 1. Positive for findings of a mid to distal small bowel obstruction. A transition zone is identified without an obvious associated mass, volvulus, or hernia. 2. No perforation or abnormal fluid collection. 3. Colonic diverticulosis with new mild fat stranding around the mid descending colon in the left abdomen. These are findings of diverticulitis, although do not appear to be associated with the small bowel obstruction and may be incidental or subacute. EXAM: ABDOMEN RADIOGRAPHY EXAM DATE: 03/26/2018 06:20 AM. IMPRESSION: Stable gaseous small bowel dilatation. Minimal retained contrast in the distal colon and colonic diverticula. - SEPSIS Current Stage of Sepsis: Ruled out Possible source of Sepsis: Genitourinary - FOLLOW UP Follow Up: Disposition: Home, Self Care Prescriptions: Fluticasone [Flonase] 1 sprays JESSICA DAILY #1 bottle Fluticasone/Salmeterol [Advair 250-50 Diskus] 1 each IH BID #1 blst.w.dev Montelukast [Singulair] 10 mg PO QPM #30 tablet Tiotropium [place] [Spiriva] 18 mcg IH DAILY #30 cap.w.dev Wheat Dextrin [Benefiber] 1 packet PO DAILY #30 packet Diet: Regular Activity Restrictions: Activity as Tolerated Additional Instructions or Follow Up instructions: You were admitted for a small bowel obstruction. With bowel rest, this resolved. On imaging, you were found to have diverticulosis. The assisted treatment for this is to take Benefiber daily. You were also found to have sinusitis with over mucous production and were prescribed nasal sprays. For the proper treatment of your COPD, I have sent 2 other inhalers and a nightly dose of Singular. These are for assisted use. Please see your PCP within one week. - TIME SPENT Time Spent in Discharge (Minutes): 55
[2018-03-27 13:39] VITALS: BP 128/56
== END 2018-03-27 14:00 | disposition home or self-care (01) | DRG 389 ==
LOC: EDUNIT# → ED 19:26 → MS2 23:15
PROVIDERS: ADMIT Internal Medicine; ATTEND Nurse Practitioner
DX: K56.609 Unspecified intestinal obstruction, unspecified as to partial versus complete obstruction (principal); K57.32 Diverticulitis of large intestine without perforation or abscess without bleeding; N39.0 Urinary tract infection, site not specified; B96.1 Klebsiella pneumoniae [K. pneumoniae] as the cause of diseases classified elsewhere; E78.00 Pure hypercholesterolemia, unspecified; J45.909 Unspecified asthma, uncomplicated; E86.0 Dehydration; I12.9 Hypertensive chronic kidney disease with stage 1 through stage 4 chronic kidney disease, or unspecified chronic kidney disease; N18.3 Chronic kidney disease, stage 3 (moderate); J44.9 Chronic obstructive pulmonary disease, unspecified; J30.9 Allergic rhinitis, unspecified; J32.9 Chronic sinusitis, unspecified; E03.9 Hypothyroidism, unspecified; K59.09 Other constipation; E78.5 Hyperlipidemia, unspecified; Z79.51 Long term (current) use of inhaled steroids; Z79.82 Long term (current) use of aspirin
CPT/HCPCS: 36415; 71045; 74018; 74019; 74177; 80048; 80053; 83605; 83690; 83735; 85025; 94640; 96365; 96368; 96375; 99283; 99284; 99285

== ENCOUNTER 2018-08-23 07:36 | Emergency (ER) | payer MEDICARE, MEDICAID ==
--- NOTE | 2018-08-23 09:41 | ED Physician Documentation ---
PD HPI DYSPNEA - Stated complaint Stated Complaint: COUGH/DIFF BREATHING - Chief complaint Chief Complaint: Resp - History obtained from History obtained from: Patient, Family - History of Present Illness Timing - onset: How many weeks ago (2) Timing - onset during: Rest Timing - duration: Weeks (2) Timing - details: Gradual onset, Still present Inciting event(s): URI Improved by: Inhaler/neb Worsened by: Coughing Associated symptoms: Cough, Wheezing. No: Fever Similar symptoms before: Diagnosis (COPD) Recently seen: Not recently seen - Additional information Additional information: 82-year-old female with a history of COPD has developed cough and congestion. She has had a cough productive of yellow phlegm that is now turned to white phlegm and she is got a significant amount of phlegm which she feels that she is getting some mucus plugging from. She will periodically get short of breath with her coughing episodes. She is also developed some bleeding from her hemorrhoids. She is wondering if there is anything else she can do about this. Review of Systems Constitutional: denies: Fever Eyes: denies: Decreased vision Ears: denies: Ear pain Nose: reports: Congestion. denies: Rhinorrhea / runny nose Throat: denies: Sore throat Cardiac: denies: Chest pain / pressure, Palpitations, Pedal edema, Calf pain Respiratory: reports: Dyspnea, Cough, Wheezing GI: reports: Bloody / black stool. 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 HEENT: Cataracts, Tonsil/Adenoidectomy - Present Medications Home Medications: Ambulatory Orders Medication Instructions Recorded Confirmed Levothyroxine [Synthroid] 25 mcg PO DAILY 11/02/13 03/25/18 Atorvastatin [Lipitor] 10 mg PO DAILY 04/06/14 03/25/18 Multivit-Min/FA/Lycopen/Lutein 1 tab PO DAILY 12/18/14 03/25/18 [Centrum Silver Tablet] Albuterol Sulf [Ventolin Hfa 1 - 2 puffs INH Q4HR PRN #1 inhaler 02/20/18 03/25/18 Inhaler] Aspirin 81 mg PO DAILY 03/22/18 03/25/18 Benzonatate [Tessalon Perle] 100 - 200 mg PO TID PRN #30 capsule 03/22/18 03/25/18 Nitrofurantoin Monohyd/M-Cryst 100 mg PO BID #10 capsule 03/22/18 03/25/18 [Macrobid 100 mg Capsule] Fluticasone [Flonase] 1 sprays JESSICA DAILY #1 bottle 03/27/18 Fluticasone/Salmeterol [Advair 1 each IH BID #1 blst.w.dev 03/27/18 250-50 Diskus] Montelukast [Singulair] 10 mg PO QPM #30 tablet 03/27/18 Tiotropium [place] [Spiriva] 18 mcg IH DAILY #30 cap.w.dev 03/27/18 Wheat Dextrin [Benefiber] 1 packet PO DAILY #30 packet 03/27/18 Azithromycin [Zithromax] 250 mg PO DAILY #6 tablet 08/23/18 predniSONE [Prednisone] 40 mg PO DAILY #10 tablet 08/23/18 - Allergies Allergies/Adverse Reactions: Allergies Allergy/AdvReac Type Severity Reaction Status Date / Time aztreonam Allergy Unknown Dizziness Verified 08/23/18 07:52 carbamazepine Allergy Unknown Dizziness Verified 08/23/18 07:52 Cephalosporins Allergy Unknown Dizziness Verified 08/23/18 07:52 Penicillins Allergy Unknown Dizziness Verified 08/23/18 07:52 - Social History Does the pt smoke?: No Smoking Status: Never smoker Does the pt drink ETOH?: No Does the pt have substance abuse?: No - Immunizations Immunizations are current?: Yes - POLST Patient has POLST: Yes POLST Status: Full Code PD ED PE NORMAL - Vitals Vital signs reviewed: Yes (tachy and hypertensive ) - General General: Alert and oriented X 3, No acute distress, Well developed/nourished, Other (talking in complete sentences and talking a lot talks through entire lung exam. ) - HEENT HEENT: Atraumatic, PERRL, EOMI, Ears normal - Neck Neck: Supple, no meningeal sign, No bony TTP - Cardiac Cardiac: No murmur, Other (tachy to 110) - Respiratory Respiratory: No respiratory distress, Other (fine wheezes with fair air movement and no focal rhonchi) - Abdomen Abdomen: Soft, Non tender - Rectal Rectal: Other ([employer] [place]. inflammed external hemorrhoids with evidence of recent bleeding. ) - Back Back: No CVA TTP, No spinal TTP - Derm Derm: Normal color, Warm and dry, No rash - Extremities Extremities: No deformity, No edema - Neuro Neuro: Alert and oriented X 3, cassandra developer 2-12 intact, No motor deficit, No sensory deficit, Normal speech Eye Opening: Spontaneous Motor: Obeys Commands Verbal: Oriented GCS Score: 15 - Psych Psych: Normal mood, Normal affect Results - Vitals Vitals: Vital Signs - 24 hr 08/23/18 07:46 Temperature 36.8 C Heart Rate 115 H Respiratory 16 Rate Blood Pressure 144/70 H O2 Saturation 97 Oxygen O2 Source Room air PD MEDICAL DECISION MAKING - ED course Complexity details: considered differential, d/w patient, d/w family ED course: 82-year-old female with a history of COPD has developed a cough and congestion with increased shortness of breath over the past 2 weeks and she has inflamed hemorrhoids. I have discussed with the patient treatment of her hemorrhoids including application of hydrocortisone and continuous pressure for reduction of the hemorrhoids. She requires no specific treatment here in the emergency department she is placed on a course of prednisone and Zithromax and will follow up with Dr. Kaylan Hewitt. Departure - Departure Disposition: 01 Home, Self Care Clinical Impression: Bleeding external hemorrhoids COPD (chronic obstructive pulmonary disease) Qualifiers: COPD type: COPD with acute exacerbation Qualified Code(s): J44.1 - Chronic obstructive pulmonary disease with (acute) exacerbation Condition: Stable Instructions: ED COPD Flare, ED Hemorrhoids Follow-Up: Kaylan Hewitt MD [Primary Care Provider] - Prescriptions: Azithromycin [Zithromax] 250 mg PO DAILY #6 tablet predniSONE [Prednisone] 40 mg PO DAILY #10 tablet Comments: Today it appears your hemorrhoids are inflamed and my recommendation is to use some hydrocortisone on your finger and apply it directly to the inflamed hem orrhoid with pressure directly over it until it reduces or shrinks under your finger. Once or twice per day.
[2018-08-23 09:55] VITALS: BP 148/82
== END 2018-08-23 09:56 | disposition home or self-care (01) ==
LOC: ED 07:36
DX: J44.1 Chronic obstructive pulmonary disease with (acute) exacerbation (principal); K64.4 Residual hemorrhoidal skin tags; I10 Essential (primary) hypertension
CPT/HCPCS: 99283; 99284

== ENCOUNTER 2018-09-26 07:07 | Outpatient (CLI) | payer MEDICARE, MEDICAID | END 2018-09-26 07:08 | disposition EMS.NT | LOC: EMS 07:07 | PROVIDERS: ATTEND Surgery | DX: R09.81 Nasal congestion (principal) ==

== ENCOUNTER 2018-09-26 16:32 | Outpatient (CLI) | payer MEDICARE, MEDICAID | END 2018-09-26 16:33 | disposition critical access hospital (66) | LOC: EMS 16:32 | PROVIDERS: ATTEND Surgery | DX: R06.00 Dyspnea, unspecified (principal); R09.81 Nasal congestion | CPT/HCPCS: A0425; A0427 ==

== ENCOUNTER 2018-09-26 17:06 | Emergency (ER) | payer MEDICARE, MEDICAID ==
--- NOTE | 2018-09-26 17:44 | ED Physician Documentation ---
PD HPI DYSPNEA - Stated complaint Stated Complaint: SOA - Chief complaint Chief Complaint: Resp - History obtained from History obtained from: Patient - History of Present Illness Timing - onset: Today (this morning) Timing - onset during: Light activity Timing - duration: Days (1) Timing - details: Gradual onset, Still present, Waxing and waning Inciting event(s): No: Out of meds (she says she was Rx a different inhaler after last admission and it does not work as well as prior Albuterol.), URI (has had some increased cough and wheezing. Not feverish.) Associated symptoms: Cough, Wheezing. No: Fever, Chest pain / discomfort, Bilateral edema Similar symptoms before: Diagnosis (COPD) Review of Systems Constitutional: denies: Fever, Chills Nose: denies: Rhinorrhea / runny nose, Congestion Throat: denies: Sore throat Cardiac: denies: Chest pain / pressure, Palpitations Respiratory: reports: Dyspnea, Cough, Wheezing GI: denies: Nausea, Vomiting, Diarrhea Musculoskeletal: denies: Extremity swelling Neurologic: reports: Generalized weakness. 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 HEENT: Cataracts, Tonsil/Adenoidectomy - Present Medications Home Medications: Ambulatory Orders Medication Instructions Recorded Confirmed Levothyroxine [Synthroid] 25 mcg PO DAILY 11/02/13 03/25/18 Atorvastatin [Lipitor] 10 mg PO DAILY 04/06/14 03/25/18 Multivit-Min/FA/Lycopen/Lutein 1 tab PO DAILY 12/18/14 03/25/18 [Centrum Silver Tablet] Albuterol Sulf [Ventolin Hfa 1 - 2 puffs INH Q4HR PRN #1 inhaler 02/20/18 03/25/18 Inhaler] Aspirin 81 mg PO DAILY 03/22/18 03/25/18 Benzonatate [Tessalon Perle] 100 - 200 mg PO TID PRN #30 capsule 03/22/18 03/25/18 Nitrofurantoin Monohyd/M-Cryst 100 mg PO BID #10 capsule 03/22/18 03/25/18 [Macrobid 100 mg Capsule] Fluticasone [Flonase] 1 sprays JESSICA DAILY #1 bottle 03/27/18 Fluticasone/Salmeterol [Advair 1 each IH BID #1 blst.w.dev 03/27/18 250-50 Diskus] Montelukast [Singulair] 10 mg PO QPM #30 tablet 03/27/18 Tiotropium [place] [Spiriva] 18 mcg IH DAILY #30 cap.w.dev 03/27/18 Wheat Dextrin [Benefiber] 1 packet PO DAILY #30 packet 03/27/18 Azithromycin [Zithromax] 250 mg PO DAILY #6 tablet 08/23/18 predniSONE [Prednisone] 40 mg PO DAILY #10 tablet 08/23/18 Albuterol Sulf [Ventolin Hfa 2 - 3 puffs INH Q4HR PRN #1 inhaler 09/26/18 Inhaler] Doxycycline Hyclate 100 mg PO BID #14 capsule 09/26/18 dexAMETHasone [Decadron] 4 mg PO DAILY #7 tablet 09/26/18 - Allergies Allergies/Adverse Reactions: Allergies Allergy/AdvReac Type Severity Reaction Status Date / Time aztreonam Allergy Unknown Dizziness Verified 08/23/18 07:52 carbamazepine Allergy Unknown Dizziness Verified 08/23/18 07:52 Cephalosporins Allergy Unknown Dizziness Verified 08/23/18 07:52 Penicillins Allergy Unknown Dizziness Verified 08/23/18 07:52 - Social History Does the pt smoke?: No Smoking Status: Never smoker Does the pt drink ETOH?: No Does the pt have substance abuse?: No - Immunizations Immunizations are current?: Yes - POLST Patient has POLST: Yes POLST Status: Full Code PD ED PE NORMAL - Vitals Vital signs reviewed: Yes - General General: Alert and oriented X 3, No acute distress, Well developed/nourished - HEENT HEENT: Pharynx benign - Neck Neck: Supple, no meningeal sign, No adenopathy - Cardiac Cardiac: RRR, No murmur - Respiratory Respiratory: No respiratory distress. No: Clear bilaterally (no coarse sounds; has diffuse wheezing without retractions. ) - Abdomen Abdomen: Soft, Non tender - Derm Derm: Normal color, Warm and dry - Extremities Extremities: Normal ROM s pain, No edema, No calf tenderness / cord - Neuro Neuro: Alert and oriented X 3, No motor deficit, No sensory deficit Results - Vitals Vitals: Oxygen O2 Source Room air PD MEDICAL DECISION MAKING - ED course Complexity details: re-evaluated patient (feeling better with neb. No signs pneumonia. Can treat as COPD exac. ), considered differential, d/w patient Departure - Departure Disposition: Home, Self Care Clinical Impression: Asthma exacerbation in COPD Upper respiratory infection Qualifiers: URI type: unspecified URI Qualified Code(s): J06.9 - Acute upper respiratory infection, unspecified Condition: Stable Record reviewed to determine appropriate education?: Yes Instructions: ED COPD Flare Follow-Up: Kaylan Hewitt MD [Primary Care Provider] - Prescriptions: Albuterol Sulf [Ventolin Hfa Inhaler] 2 - 3 puffs INH Q4HR PRN #1 inhaler PRN Reason: Shortness Of Air/Wheezing dexAMETHasone [Decadron] 4 mg PO DAILY #7 tablet Doxycycline Hyclate 100 mg PO BID #14 capsule Comments: Use the albuterol inhaler 2 to 3 puffs 4 times a day extra times as needed for wheezing cough. Decadron steroid daily for a week. Doxycycline antibiotic twi ce daily for a week. Continue other usual medicines. Follow-up with your primary care this coming week, call Friday for an appointment. Return if worsening. Discharge Date/Time: 09/26/18 19:30
[2018-09-26] MEDS ORDERED: IPRATROPIUM/ALBUTEROL 3 ML NEB INH STA (18:07)
[2018-09-26] MEDS ORDERED: DOXYCYCLINE 100 MG TABLET PO STA (18:08)
[2018-09-26] MEDS ORDERED: DEXAMETHASONE 10 MG/ML VIAL IVP STA (18:08)
[2018-09-26 19:11] VITALS: BP 159/82
== END 2018-09-26 19:30 | disposition home or self-care (01) ==
LOC: EDUNIT# → ED 17:06
DX: J44.1 Chronic obstructive pulmonary disease with (acute) exacerbation (principal); J06.9 Acute upper respiratory infection, unspecified; I10 Essential (primary) hypertension; Z79.82 Long term (current) use of aspirin
CPT/HCPCS: 94640; 96374; 99283; 99284; A9270

== ENCOUNTER 2018-12-19 09:01 | Emergency (ER) | payer MEDICARE, MEDICAID ==
--- NOTE | 2018-12-19 12:03 | ED Physician Documentation ---
History of Present Illness - Stated complaint Stated Complaint: DIZZINESS - Chief complaint Chief Complaint: Neuro - Additonal information Additional information: This is an 83-year-old female with a history of hypertension, high cholesterol, who presents with some dizziness. Patient states that she has had dizziness for months now, it is somewhat waxing and waning in nature, she describes it as a feeling of unsteadiness. She has been seen by her primary care provider and given "dizzy pills", which Have not resolved the problem. She denies chest pain, vomiting, abdominal pain. No weakness or numbness, no speech changes. Patient's daughter is at bedside and states that she is independently ambulatory, she has not noticed that patient has had any difficulty walking or standing on her feet. There has been no syncope. Patient also states that no matter how much water she drinks she does not feel that she is urinating enough. In triage she reportedly was complaining of some blurry vision, she denies any vision changes at this time. 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 HEENT: Chronic sinusitis Psych: None Musculoskeletal: None Derm: None - Past Surgical History Past Surgical History: Yes General: Appendectomy, Colonoscopy /ESCORT CAR DRIVER: Hysterectomy HEENT: Cataracts, Tonsil/Adenoidectomy - Present Medications Home Medications: Ambulatory Orders Medication Instructions Recorded Confirmed Levothyroxine [Synthroid] 25 mcg PO DAILY 11/02/13 03/25/18 Atorvastatin [Lipitor] 10 mg PO DAILY 04/06/14 03/25/18 Multivit-Min/FA/Lycopen/Lutein 1 tab PO DAILY 12/18/14 03/25/18 [Centrum Silver Tablet] Albuterol Sulf [Ventolin Hfa 1 - 2 puffs INH Q4HR PRN #1 inhaler 02/20/18 03/25/18 Inhaler] Aspirin 81 mg PO DAILY 03/22/18 03/25/18 Benzonatate [Tessalon Perle] 100 - 200 mg PO TID PRN #30 capsule 03/22/18 03/25/18 Nitrofurantoin Monohyd/M-Cryst 100 mg PO BID #10 capsule 03/22/18 03/25/18 [Macrobid 100 mg Capsule] Fluticasone [Flonase] 1 sprays JESSICA DAILY #1 bottle 03/27/18 Fluticasone/Salmeterol [Advair 1 each IH BID #1 blst.w.dev 03/27/18 250-50 Diskus] Montelukast [Singulair] 10 mg PO QPM #30 tablet 03/27/18 Tiotropium [place] [Spiriva] 18 mcg IH DAILY #30 cap.w.dev 03/27/18 Wheat Dextrin [Benefiber] 1 packet PO DAILY #30 packet 03/27/18 Azithromycin [Zithromax] 250 mg PO DAILY #6 tablet 08/23/18 predniSONE [Prednisone] 40 mg PO DAILY #10 tablet 08/23/18 Albuterol Sulf [Ventolin Hfa 2 - 3 puffs INH Q4HR PRN #1 inhaler 09/26/18 Inhaler] Doxycycline Hyclate 100 mg PO BID #14 capsule 09/26/18 dexAMETHasone [Decadron] 4 mg PO DAILY #7 tablet 09/26/18 Meclizine HCl 25 mg PO TID PRN #12 tab.chew 12/19/18 Sulfamethox/Trimeth 800/160 1 each PO BID #10 tablet 12/19/18 [Bactrim Ds 800/160] - Allergies Allergies/Adverse Reactions: Allergies Allergy/AdvReac Type Severity Reaction Status Date / Time aztreonam Allergy Unknown Dizziness Verified 12/19/18 09:13 carbamazepine Allergy Unknown Dizziness Verified 12/19/18 09:13 Cephalosporins Allergy Unknown Dizziness Verified 12/19/18 09:13 Penicillins Allergy Unknown Dizziness Verified 12/19/18 09:13 - Social History Does the pt smoke?: No Smoking Status: Never smoker Does the pt drink ETOH?: No Does the pt have substance abuse?: No - Immunizations Immunizations are current?: Yes - POLST Patient has POLST: Yes POLST Status: Full Code PD ED PE NORMAL - Vitals Vital signs reviewed: Yes - General General: Alert and oriented X 3, No acute distress - HEENT HEENT: PERRL - Neck Neck: Supple, no meningeal sign - Cardiac Cardiac: RRR, No murmur - Respiratory Respiratory: Clear bilaterally - Abdomen Abdomen: Normal bowel sounds, Soft, Non tender, Non distended - Derm Derm: Warm and dry - Extremities Extremities: No deformity - Neuro Neuro: Alert and oriented X 3, manager speech 2-12 intact, No motor deficit, No sensory deficit, Normal speech, Other (No dysmetria, normal [id number], steady on her feet and with a normal narrow narrow based gait) - Psych Psych: Normal mood, Normal affect Results - Vitals Vitals: Oxygen O2 Source Room air - EKG (time done) 12:16 Other comments: Other comments (Rate 89, rhythm sinus, there is no ST segment elevation or depression, no abnormal T wave inversions, intervals within normal limits.) - Labs Labs: Microbiology 12/19/18 13:00 Urine Culture - Final Urine,Clean Catch >100,000 COLONIES/ML Polymicrobial growth including potential pathogens. This is suggestive of skin or other contamination. Laboratory Tests 12/19/18 12/19/18 12/19/18 12:20 12:20 12:20 WBC 5.8 RBC 4.04 L Hgb 11.2 L Hct 36.5 L MCV 90.3 MCH 27.7 MCHC 30.7 L RDW 15.0 Plt Count 171 MPV 9.3 Neut # (Auto) 4.4 Lymph # (Auto) 0.8 L Hand # (Auto) 0.5 Eos # (Auto) 0.1 Baso # (Auto) 0.0 Absolute Nucleated RBC 0.00 Nucleated RBC % 0.0 Sodium 136 Potassium 3.5 Chloride 100 L Carbon Dioxide 26 Anion Gap 10.0 BUN 14 Creatinine 1.2 H Estimated GFR (MDRD) 43 L Glucose 113 H Calcium 9.1 Total Bilirubin 1.2 H AST 86 H ALT 92 H Alkaline Phosphatase 92 Total Protein 7.0 Albumin 3.5 Globulin 3.5 Albumin/Globulin Ratio 1.0 Lipase 33 TSH 2.70 Urine Color Urine Clarity Urine pH Ur Specific [place] Urine Protein Urine Glucose (UA) Urine Ketones Urine Occult Blood Urine Nitrite Urine Bilirubin Urine Urobilinogen Ur Leukocyte Esterase Urine RBC Urine WBC Urine WBC Clumps Ur Epithelial Cells Ur Squamous Epith Cells Urine Bacteria Ur Microscopic Review Urine Culture Comments Ethyl Alcohol 12/19/18 12/19/18 12:20 13:00 WBC RBC Hgb Hct MCV MCH MCHC RDW Plt Count MPV Neut # (Auto) Lymph # (Auto) Hand # (Auto) Eos # (Auto) Baso # (Auto) Absolute Nucleated RBC Nucleated RBC % Sodium Potassium Chloride Carbon Dioxide Anion Gap BUN Creatinine Estimated GFR (MDRD) Glucose Calcium Total Bilirubin AST ALT Alkaline Phosphatase Total Protein Albumin Globulin Albumin/Globulin Ratio Lipase TSH Urine Color YELLOW Urine Clarity CLEAR Urine pH 6.0 Ur Specific [place] <=1.005 Urine Protein NEGATIVE Urine Glucose (UA) NEGATIVE Urine Ketones NEGATIVE Urine Occult Blood TRACE-INTA Urine Nitrite NEGATIVE Urine Bilirubin NEGATIVE Urine Urobilinogen 0.2 (NORMAL) Ur Leukocyte Esterase TRACE H Urine RBC 0-5 Urine WBC 6-10 H Urine WBC Clumps PRESENT Ur Epithelial Cells FEW Transitional Ur Squamous Epith Cells FEW Squamous Urine Bacteria Few Ur Microscopic Review INDICATED Urine Culture Comments INDICATED Ethyl Alcohol < 5.0 - Rads (name of study) CXR Radiology: Other (No acute cardiopulmonary process) PD MEDICAL DECISION MAKING - ED course Complexity details: considered differential (Vertigo, electrolyte abnormality, hypovolmia, BPPV, UTI, stroke) ED course: Pt well appearing on exam. She has a normal, narrow based gait without ataxia, no dysmtetria, and the chroncity and intermittent nature of her symptoms make TIA/stroke unlikley. No focal deficits. CT head shows no acute abnormalities. Pt complained of blurry vision in triage but on my exam she states that she thinks she needs an updated glasses prescription. Eye exam benign today. Labs are notable for signs of UTI without signs of anemia or significant elizabet ctrolye derangement. No chest pain or shortness of breath to suggest cardio- pulmonary cause. She has a negative sandy-hallpike at this time but the episodic nature of her dizziness suggests potential BPPV. I discussed tx for her UTI prescribed meclizine and abx. She has mild LFT elevations but no onbvious history of heavy alcohol use or heavy tylenol use. No abdominal tenderness or vomiting to suggest biliary pathology. I discussed she needs to follow up with her PCP on these labs. I discussed the importance of PCP follow up and strict return precautions and patient was discharged home. Departure - Departure Disposition: 01 Home, Self Care Clinical Impression: Dizziness Urinary tract infection Qualifiers: Urinary tract infection type: acute cystitis Hematuria presence: without hematuria Qualified Code(s): N30.00 - Acute cystitis without hematuria Condition: Good Instructions: ED Dizziness UKO, ED UTI Cystitis Female Follow-Up: Kaylan Hewitt MD [Primary Care Provider] - Prescriptions: Meclizine HCl 25 mg PO TID PRN #12 tab.chew PRN Reason: Vertigo Sulfamethox/Trimeth 800/160 [Bactrim Ds 800/160] 1 each PO BID #10 tablet Comments: You were seen today for dizziness. We did see signs of a urinary tract infection on your labs, please take the antibiotic as prescribed for this. If you are having another episode of dizziness or it feels like the room is spinning around you, try the meclizine which is a medication for vertigo/dizziness. Please follow-up with your primary care provider. If you are having worsening symptoms such as inability to walk, weakness or numbness, return to the emergency department immediately Discharge Date/Time: 12/19/18 16:45
[2018-12-19 12:48] LABS: BASOPHILS % (AUTO) 0.5 %; EOSINOPHILS # (AUTO) 0.1 10^3/uL (0.0-0.7); EOSINOPHILS % (AUTO) 1.4 %; HGB - HEMOGLOBIN 11.2 g/dL (12.0-16.0); LYMPHOCYTES # (AUTO) 0.8 10^3/uL (1.5-3.5); LYMPHOCYTES % (AUTO) 13.1 %; MEAN CORPUSCULAR HEMOGLOBIN 27.7 pg (27.0-31.0); MEAN CORPUSCULAR HGB CONC 30.7 g/dL (32.0-36.0); MEAN CORPUSCULAR VOLUME 90.3 fL (81.0-99.0); MEAN PLATELET VOLUME 9.3 fL (7.9-10.8); MONOCYTES # (AUTO) 0.5 10^3/uL (0.0-1.0); MONOCYTES % (AUTO) 8.1 %; NEUTROPHILS # (AUTO) 4.4 10^3/uL (1.5-6.6); NEUTROPHILS % (AUTO) 76.6 %; PLT - PLATELET COUNT 171 10^3/uL (130-450); RED BLOOD COUNT 4.04 10^6/uL (4.20-5.40); WHITE BLOOD COUNT 5.8 x10^3/uL (4.8-10.8)
[2018-12-19 12:58] LABS: ALBUMIN 3.5 g/dL (3.2-5.5); BILIRUBIN,TOTAL 1.2 mg/dL (0.2-1.0); CALCIUM 9.1 mg/dL (8.5-10.3); CREATININE 1.2 mg/dL (0.4-1.0)
[2018-12-19 13:11] LABS: BILIRUBIN,URINE NEGATIVE (NEGATIVE); GLUCOSE, URINE (UA) NEGATIVE (NEGATIVE); KETONES,URINE (UA) NEGATIVE (NEGATIVE); LEUKOCYTE ESTERASE, URINE TRACE (NEGATIVE); NITRITE,URINE NEGATIVE (NEGATIVE); OCCULT BLOOD,URINE TRACE-INTA (NEGATIVE); PROTEIN,URINE NEGATIVE (NEGATIVE); UROBILINOGEN,URINE 0.2 (NORMAL) E.U./dL (NORMAL)
--- NOTE | 2018-12-19 13:12 | XRAY Report ---
Reason: Dizziness Procedure Date: 12/19/2018 Accession Number: [id number] / [id number] Procedure: XR - Chest 1 View X-Ray CPT Code: 71978 Final Report FULL RESULT: EXAM: CHEST RADIOGRAPHY EXAM DATE: 12/19/2018 12:39 PM. CLINICAL HISTORY: Dizziness. COMPARISON: CHEST FOR LINE PLACEMENT 03/25/2018 2:37 PM. TECHNIQUE: 1 view. FINDINGS: Lungs/Pleura: No focal opacities evident. No pleural effusion. No pneumothorax. Mediastinum: Within exam limitations, the cardiomediastinal contour is normal. Other: None. IMPRESSION: No radiographic evidence for acute cardiopulmonary process. RADIA
[2018-12-19 13:38] LABS: CLARITY,URINE CLEAR (CLEAR)
[2018-12-19 13:39] LABS: WBC CLUMPS,URINE PRESENT
[2018-12-19 13:40] LABS: RBC,URINE 0-5 /HPF (0-5); SQUAMOUS EPITHELIAL CELL,UR FEW Squamous (<= Few)
[2018-12-19 13:41] LABS: BACTERIA,URINE Few /HPF (None Seen)
[2018-12-19 13:44] VITALS: BP 149/53
--- NOTE | 2018-12-19 16:26 | CT Report ---
Reason: hx aneurysm, headache/dizzy Procedure Date: 12/19/2018 Accession Number: [id number] / [id number] Procedure: CT - HEAD WO CPT Code: Final Report FULL RESULT: EXAM: CT HEAD EXAM DATE: 12/19/2018 03:49 PM. CLINICAL HISTORY: Headache and dizziness. History of aneurysm. COMPARISON: HEAD W/O 06/10/2016 4:43 AM. TECHNIQUE: Multiaxial CT images were obtained from the foramen magnum to the vertex. Reformats: Sagittal and coronal. IV contrast: None. In accordance with CT protocol optimization, one or more of the following dose reduction techniques were utilized for this exam: automated exposure control, adjustment of mA and/or KV based on patient size, or use of iterative reconstructive technique. FINDINGS: PARENCHYMA: No acute hemorrhage, transcortical infarction or mass. Periventricular and white matter hypointensities are nonspecific but most consistent with chronic microvascular ischemic changes. EXTRA-AXIAL SPACES: No extra-axial fluid collections. No midline shift. VENTRICLES/SULCI: Enlargement of the lateral and third ventricles with prominence of the cortical sulci consistent with mild/moderate cerebral volume loss. VASCULAR STRUCTURES: Arterial calcifications consistent with atherosclerosis. SINUSES: Air-fluid level in the right sphenoid sinus. ORBITS: Unremarkable. BONES: No displaced acute calvarial fracture. OTHER: None. IMPRESSION: 1. No acute intracranial findings. 2. Cerebral atrophy and chronic microvascular ischemic changes. 3. Air-fluid level in the right sphenoid sinus. Correlate clinically for acute sinusitis. RADIA
[2018-12-19] MEDS ORDERED: SULFAMETH/TRIMETH DS 800/160 MG TABLET PO STA (16:35)
== END 2018-12-19 16:45 | disposition home or self-care (01) ==
LOC: ED 09:01
DX: N30.00 Acute cystitis without hematuria (principal); R94.5 Abnormal results of liver function studies; R42 Dizziness and giddiness; I10 Essential (primary) hypertension
CPT/HCPCS: 36415; 70450; 71045; 80053; 81001; 83690; 84443; 85025; 87086; 93005; 99284; A9270; 80320; 81003

== ENCOUNTER 2019-02-25 12:35 | Outpatient (CLI) | payer MEDICARE, MEDICAID | END 2019-02-25 12:36 | disposition critical access hospital (66) | LOC: EMS 12:35 | PROVIDERS: ATTEND Surgery | DX: R06.02 Shortness of breath (principal); R05 Cough | CPT/HCPCS: A0425; A0427 ==

== ENCOUNTER 2019-02-25 12:52 | Emergency (ER) | payer MEDICARE, MEDICAID ==
[2019-02-25] MEDS ORDERED: IPRATROPIUM/ALBUTEROL 3 ML NEB INH STA (13:00)
--- NOTE | 2019-02-25 13:02 | ED Physician Documentation ---
PD HPI DYSPNEA - Stated complaint Stated Complaint: SOA - Chief complaint Chief Complaint: Resp - History obtained from History obtained from: Patient, EMS - History of Present Illness Timing - onset: Other (83-year-old woman with history of asthma presents with 4 days of shortness of breath and congestion as well as a cough productive of clear and thin mucus. She denies fevers or chills. Per she was going to go to her doctor's office for same, but could not make it. Note made on initial evaluation that she is tachycardic with an irregular heartbeat. We will get an EKG but I asked her if she is ever had atrial fibrillation or an irregular heartbeat, she responded with "I had something wrong with my leg and they put something in my leg, I am not sure what, that was in 2004." She could not fu rther clarify.) Review of Systems Constitutional: denies: Fever, Chills Nose: reports: Rhinorrhea / runny nose, Congestion Throat: denies: Sore throat Cardiac: denies: Chest pain / pressure, Palpitations, Pedal edema, Calf pain Respiratory: reports: Dyspnea, Cough GI: denies: Abdominal Pain PD PAST MEDICAL HISTORY - Past Medical History Cardiovascular: Hypertension, High cholesterol Respiratory: Asthma Neuro: None Endocrine/Autoimmune: HyPOthyroidism GI: Chronic constipation, Hemorrhoids, 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 : 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 HEENT: Chronic sinusitis Psych: None Musculoskeletal: None Derm: None - Past Surgical History Past Surgical History: Yes General: Appendectomy, Colonoscopy /FURNACE FILLER: Hysterectomy HEENT: Cataracts, Tonsil/Adenoidectomy - Present Medications Home Medications: Ambulatory Orders Medication Instructions Recorded Confirmed Levothyroxine [Synthroid] 25 mcg PO DAILY 11/02/13 03/25/18 Atorvastatin [Lipitor] 10 mg PO DAILY 04/06/14 03/25/18 Multivit-Min/FA/Lycopen/Lutein 1 tab PO DAILY 12/18/14 03/25/18 [Centrum Silver Tablet] Albuterol Sulf [Ventolin Hfa 1 - 2 puffs INH Q4HR PRN #1 inhaler 02/20/18 03/25/18 Inhaler] Aspirin 81 mg PO DAILY 03/22/18 03/25/18 Benzonatate [Tessalon Perle] 100 - 200 mg PO TID PRN #30 capsule 03/22/18 03/25/18 Nitrofurantoin Monohyd/M-Cryst 100 mg PO BID #10 capsule 03/22/18 03/25/18 [Macrobid 100 mg Capsule] Fluticasone [Flonase] 1 sprays JESSICA DAILY #1 bottle 03/27/18 Fluticasone/Salmeterol [Advair 1 each IH BID #1 blst.w.dev 03/27/18 250-50 Diskus] Montelukast [Singulair] 10 mg PO QPM #30 tablet 03/27/18 Tiotropium [place] [Spiriva] 18 mcg IH DAILY #30 cap.w.dev 03/27/18 Wheat Dextrin [Benefiber] 1 packet PO DAILY #30 packet 03/27/18 Azithromycin [Zithromax] 250 mg PO DAILY #6 tablet 08/23/18 predniSONE [Prednisone] 40 mg PO DAILY #10 tablet 08/23/18 Albuterol Sulf [Ventolin Hfa 2 - 3 puffs INH Q4HR PRN #1 inhaler 09/26/18 Inhaler] Doxycycline Hyclate 100 mg PO BID #14 capsule 09/26/18 dexAMETHasone [Decadron] 4 mg PO DAILY #7 tablet 09/26/18 Meclizine HCl 25 mg PO TID PRN #12 tab.chew 12/19/18 Sulfamethox/Trimeth 800/160 1 each PO BID #10 tablet 12/19/18 [Bactrim Ds 800/160] Albuterol Sulf [Ventolin Hfa 1 - 2 puffs INH Q4HR PRN #1 inhaler 02/25/19 Inhaler] Doxycycline Hyclate 100 mg PO BID #20 capsule 02/25/19 predniSONE [Deltasone] 20 mg PO [id number] #21 tab 02/25/19 - Allergies Allergies/Adverse Reactions: Allergies Allergy/AdvReac Type Severity Reaction Status Date / Time aztreonam Allergy Unknown Dizziness Verified 02/25/19 12:59 carbamazepine Allergy Unknown Dizziness Verified 02/25/19 12:59 Cephalosporins Allergy Unknown Dizziness Verified 02/25/19 12:59 Penicillins Allergy Unknown Dizziness Verified 02/25/19 12:59 - Social History Does the pt smoke?: No Smoking Status: Never smoker Does the pt drink ETOH?: No Does the pt have substance abuse?: No - Immunizations Immunizations are current?: Yes - POLST Patient has POLST: Yes POLST Status: Full Code PD ED PE NORMAL - Vitals Vital signs reviewed: Yes - General General: Alert and oriented X 3, No acute distress - HEENT HEENT: PERRL, EOMI, Pharynx benign - Neck Neck: Supple, no meningeal sign, No bony TTP - Cardiac Cardiac: Other (Rapid and irregular, no murmur) - Respiratory Respiratory: No respiratory distress, Other (Mildly wheezy, expiratory only with excellent air motion. No focal findings.) - Abdomen Abdomen: Soft, Non tender - Back Back: No CVA TTP, No spinal TTP - Derm Derm: Normal color, Warm and dry - Extremities Extremities: No edema, No calf tenderness / cord - Neuro Neuro: Alert and oriented X 3, Normal speech Results - Vitals Vitals: Vital Signs - 24 hr 02/25/19 02/25/19 02/25/19 12:56 13:15 15:49 Temperature 36.6 C Heart Rate 130 H 98 106 H Respiratory 22 18 19 Rate Blood Pressure 166/103 H 137/76 H O2 Saturation 97 96 02/25/19 19:12 Temperature Heart Rate 92 Respiratory 23 Rate Blood Pressure 137/68 H O2 Saturation 98 Oxygen O2 Source Room air - EKG (time done) 1309 Rate: Rate (enter#) (88) Rhythm: NSR [place]: Normal Intervals: Normal [place] QRS: Normal Ischemia: Normal ST segments Computer interpretation: Agree with computer - Labs Labs: Laboratory Tests 02/25/19 02/25/19 02/25/19 13:15 13:15 13:15 WBC 4.4 L RBC 4.15 L Hgb 11.9 L Hct 37.2 MCV 89.6 MCH 28.7 MCHC 32.0 RDW 14.9 Plt Count 244 MPV 9.1 Neut # (Auto) 2.4 Lymph # (Auto) 1.2 L [place] # (Auto) 0.4 Eos # (Auto) 0.3 Baso # (Auto) 0.1 Absolute Nucleated RBC 0.00 Nucleated RBC % 0.0 Sodium 140 Potassium 3.7 Chloride 103 Carbon Dioxide 24 Anion Gap 13.0 BUN 14 Creatinine 1.2 H Estimated GFR (MDRD) 43 L Glucose 125 H Calcium 9.8 Total Bilirubin 0.9 AST 28 ALT 19 Alkaline Phosphatase 69 Troponin I High Sens 4.1 B-Natriuretic Peptide Total Protein 8.2 Albumin 4.1 Globulin 4.1 Albumin/Globulin Ratio 1.0 Lipase 44 02/25/19 13:15 WBC RBC Hgb Hct MCV MCH MCHC RDW Plt Count MPV Neut # (Auto) Lymph # (Auto) [place] # (Auto) Eos # (Auto) Baso # (Auto) Absolute Nucleated RBC Nucleated RBC % Sodium Potassium Chloride Carbon Dioxide Anion Gap BUN Creatinine Estimated GFR (MDRD) Glucose Calcium Total Bilirubin AST ALT Alkaline Phosphatase Troponin I High Sens B-Natriuretic Peptide 17 Total Protein Albumin Globulin Albumin/Globulin Ratio Lipase - Rads (name of study) 2v chest Radiology: EMP read contemporaneously (Hyperexpansion without infiltrate) CTA chest Radiology: EMP read contemporaneously (Somewhat limited study but no PE.) PD MEDICAL DECISION MAKING - ED course ED course: 83-year-old woman presents by ambulance for shortness of breath, pattern most consistent with COPD exacerbation. No clinical evidence of cardiac Decompensation otherwise. She was initially tachycardic on pulse oximetry, I wondered if it might be atrial fibrillation but it quickly abruptly abated so I think it is more consistent with anxiety on arrival, her EKG was without significant arrhythmia. Prior to discharge she started having some panic attacks, you get very tachycardic and shaky and started spitting into a bag saying I cannot breathe, something is in my throat. Her airway seem normal, physical examination of the oropharynx was normal. Lungs had become pretty much clearer after the breathing treatments. She would calm down for a while after first dose of Ativan, but then started insisting something was in her throat again and coughing and becoming intermittently tachycardic. The pattern is very consistent with anxiety. Esophageal foreign body was considered but she could tolerate liquids. She improved much more significantly after second dose of Ativan. No significant arrhythmias on the monitor during observation. Departure - Departure Disposition: 01 Home, Self Care Clinical Impression: Asthma exacerbation in COPD Condition: Good Record reviewed to determine appropriate education?: Yes Instructions: COPD Dc Prescriptions: Albuterol Sulf [Ventolin Hfa Inhaler] 1 - 2 puffs INH Q4HR PRN #1 inhaler PRN Reason: Shortness Of Air/Wheezing Doxycycline Hyclate 100 mg PO BID #20 capsule predniSONE [Deltasone] 20 mg PO [id number] #21 tab Comments: Call your doctor to arrange a follow-up appointment, make the next available appointment. In the interim, return anytime if worse or if new symptoms develop. Your blood pressure was elevated today on check into the emergency department. This does not mean that you have hypertension, it is a common phenomenon to come to the emergency department and have elevated blood pressure. I recommend that you see your primary care physician within the week to have it rechecked when you are feeling better. Discharge Date/Time: 02/25/19 20:41
[2019-02-25 13:22] LABS: BASOPHILS # (AUTO) 0.1 10^3/uL (0.0-0.1); BASOPHILS % (AUTO) 1.4 %; EOSINOPHILS # (AUTO) 0.3 10^3/uL (0.0-0.7); EOSINOPHILS % (AUTO) 6.8 %; HGB - HEMOGLOBIN 11.9 g/dL (12.0-16.0); LYMPHOCYTES # (AUTO) 1.2 10^3/uL (1.5-3.5); LYMPHOCYTES % (AUTO) 27.8 %; MEAN CORPUSCULAR HEMOGLOBIN 28.7 pg (27.0-31.0); MEAN CORPUSCULAR VOLUME 89.6 fL (81.0-99.0); MEAN PLATELET VOLUME 9.1 fL (7.9-10.8); MONOCYTES # (AUTO) 0.4 10^3/uL (0.0-1.0); NEUTROPHILS # (AUTO) 2.4 10^3/uL (1.5-6.6); NEUTROPHILS % (AUTO) 53.8 %; PLT - PLATELET COUNT 244 10^3/uL (130-450); RED BLOOD COUNT 4.15 10^6/uL (4.20-5.40); RED CELL DISTRIBUTION WIDTH 14.9 % (12.0-15.0); WHITE BLOOD COUNT 4.4 x10^3/uL (4.8-10.8)
[2019-02-25 13:37] LABS: ALBUMIN 4.1 g/dL (3.2-5.5); BILIRUBIN,TOTAL 0.9 mg/dL (0.2-1.0); CALCIUM 9.8 mg/dL (8.5-10.3); CREATININE 1.2 mg/dL (0.4-1.0); TOTAL PROTEIN 8.2 g/dL (6.7-8.2)
--- NOTE | 2019-02-25 13:59 | XRAY Report ---
Reason: cough Procedure Date: 02/25/2019 Accession Number: [id number] / [id number] Procedure: XR - Chest 2 View X-Ray CPT Code: 61382 Final Report FULL RESULT: EXAM: CHEST RADIOGRAPHY EXAM DATE: 02/25/2019 01:52 PM. CLINICAL HISTORY: Cough. COMPARISON: CHEST 1 VIEW 12/19/2018 12:22 PM. TECHNIQUE: 2 views. FINDINGS: Lungs/Pleura: No focal opacities evident. No pleural effusion. No pneumothorax. Hyperexpanded chest. Mediastinum: Heart and mediastinal contours are unremarkable. Other: None. IMPRESSION: 1. Hyperexpanded and emphysematous chest, otherwise clear. RADIA
[2019-02-25] MEDS ORDERED: predniSONE 20 MG TABLET PO STA (14:15)
[2019-02-25] MEDS ORDERED: DOXYCYCLINE 100 MG TABLET PO STA (14:15)
[2019-02-25] MEDS ORDERED: LORazepam 2 MG/ML VIAL IVP STA ×2 (14:34→15:19)
[2019-02-25] MEDS ORDERED: ONDANSETRON 4 MG/2 ML VIAL IVP STA (15:16)
[2019-02-25] MEDS ORDERED: IOVERSOL 320 100 ML VIAL IVP ONE ×2 (17:46→18:21)
--- NOTE | 2019-02-25 19:02 | CT Report ---
Reason: dyspnea cough Procedure Date: 02/25/2019 Accession Number: [id number] / [id number] Procedure: CT - ANGIO CHEST W/WO CPT Code: Final Report FULL RESULT: EXAM: CT ANGIOGRAM CHEST EXAM DATE: 02/25/2019 06:19 PM. CLINICAL HISTORY: Dyspnea cough. COMPARISON: None. TECHNIQUE: Routine helical imaging was performed through the chest in the pulmonary arterial phase. IV Contrast: 55 cc Optiray 320. Reconstructions: Sagittal, coronal, and 3D MIP. In accordance with CT protocol optimization, one or more of the following dose reduction techniques were utilized for this exam: automated exposure control, adjustment of mA and/or KV based on patient size, or use of iterative reconstructive technique. FINDINGS: Pulmonary Arteries: Diagnostic quality: Adequate through the segmental arteries. No definite evidence for acute or chronic pulmonary emboli. Cannot exclude lesions of smaller vessels; note that apparent cut off of subsegmental lower lobe vessels is symmetrical and may be artifactual as suggested on series 9 images 15 through 18. RV/LV is within normal limits. There is no interventricular septal bowing. There is no reflux of contrast material in the IVC. Lungs/Pleura: Mild bibasilar atelectasis. No definite acute infiltrate, consolidation, effusion, or pneumothorax. Mediastinum: Normal heart size. No pericardial effusion. Moderate to marked coronary artery calcification. No lymphadenopathy. Thoracic Aorta: Bovine arch, normal variant. Otherwise unremarkable. Upper Abdomen: At least mild colonic diverticulosis, Incompletely seen Other: None. IMPRESSION: 1. Negative for pulmonary embolism at this time, with caveat as noted. Unremarkable aorta. 2. Coronary artery calcifications and other chronic or incidental findings. RADIA
[2019-02-25 19:17] VITALS: BP 137/68
== END 2019-02-25 20:41 | disposition home or self-care (01) ==
LOC: EDUNIT# → ED 12:52
DX: J44.1 Chronic obstructive pulmonary disease with (acute) exacerbation (principal); J45.901 Unspecified asthma with (acute) exacerbation; R00.0 Tachycardia, unspecified; F41.0 Panic disorder [episodic paroxysmal anxiety]; I10 Essential (primary) hypertension; Z79.82 Long term (current) use of aspirin
CPT/HCPCS: 36415; 71046; 71275; 80053; 83690; 83880; 84484; 85025; 93005; 94640; 96374; 96376; 99283; 99284; A9270; J2060; J7512; Q9967

== ENCOUNTER 2019-11-23 12:31 | Emergency (ER) | payer MEDICARE, MEDICAID ==
[2019-11-23 13:11] LABS: BASOPHILS # (AUTO) 0.1 10^3/uL (0.0-0.1); BASOPHILS % (AUTO) 1.4 %; EOSINOPHILS # (AUTO) 0.4 10^3/uL (0.0-0.7); EOSINOPHILS % (AUTO) 5.6 %; HGB - HEMOGLOBIN 9.8 g/dL (12.0-16.0); LYMPHOCYTES # (AUTO) 0.9 10^3/uL (1.5-3.5); LYMPHOCYTES % (AUTO) 14.1 %; MEAN CORPUSCULAR HEMOGLOBIN 25.6 pg (27.0-31.0); MEAN CORPUSCULAR HGB CONC 30.7 g/dL (32.0-36.0); MEAN CORPUSCULAR VOLUME 83.3 fL (81.0-99.0); MEAN PLATELET VOLUME 8.4 fL (7.9-10.8); MONOCYTES # (AUTO) 0.6 10^3/uL (0.0-1.0); MONOCYTES % (AUTO) 9.1 %; NEUTROPHILS # (AUTO) 4.3 10^3/uL (1.5-6.6); NEUTROPHILS % (AUTO) 69.3 %; PLT - PLATELET COUNT 273 10^3/uL (130-450); RED BLOOD COUNT 3.83 10^6/uL (4.20-5.40); RED CELL DISTRIBUTION WIDTH 15.9 % (12.0-15.0); WHITE BLOOD COUNT 6.3 x10^3/uL (4.8-10.8)
[2019-11-23 13:18] LABS: INR 1.1 (0.8-1.2)
[2019-11-23 13:27] LABS: ALBUMIN 4.1 g/dL (3.2-5.5); ALBUMIN/GLOBULIN RATIO 1.1 (1.0-2.2); ALKALINE PHOSPHATASE 98 IU/L (42-121); ALT ALANINE AMINOTRANSFERASE 21 IU/L (10-60); AST ASPARTATE AMINOTRANSFERASE 27 IU/L (10-42); BILIRUBIN,TOTAL 0.7 mg/dL (0.2-1.0); BUN - BLOOD UREA NITROGEN 20 mg/dL (6-20); CALCIUM 9.4 mg/dL (8.5-10.3); CARBON DIOXIDE - CO2 25 mmol/L (21-32); CHLORIDE 99 mmol/L (101-111); CREATININE 1.4 mg/dL (0.4-1.0); GLUCOSE 101 mg/dL (70-100); SODIUM 135 mmol/L (135-145)
--- NOTE | 2019-11-23 14:14 | ED Physician Documentation ---
History of Present Illness - Stated complaint Stated Complaint: RECTAL BLEED - Chief complaint Chief Complaint: Abd Pain - History obtained from History obtained from: Patient - Additonal information Additional information: Patient comes emergency department complaining of blood in the toilet when she has a bowel movement. She denies any dizziness or shortness of. No weakness. She states this is been happening on and off for years. The patient's primary care physician Dr. Hewitt sent her in here today for a CBC and a rectal exam. The patient has had a number of colonoscopies but the last one was over a year ago. She does note that she has given to 2 children. She is not aware of having any hemorrhoids. No pain in her rectal or anal area when she defecates. Patient is on Dulcolax and states she eats plenty of fruits and vegetables. She has intermittent constipation even on her normal regimen. She denies having felt any abdominal pain and denies any blood on her underwear in between bowel movements. No easy bruising or bleeding anywhere else. No other complaints at this time Review of Systems Ten Systems: 10 systems reviewed and negative Constitutional: reports: Reviewed and negative Eyes: reports: Reviewed and negative Ears: reports: Reviewed and negative Nose: reports: Reviewed and negative Throat: reports: Reviewed and negative Cardiac: reports: Reviewed and negative Respiratory: reports: Reviewed and negative GI: reports: Constipation, Bloody / black stool. denies: Abdominal Pain, Nausea, Vomiting, Diarrhea : reports: Reviewed and negative Skin: reports: Reviewed and negative Musculoskeletal: reports: Reviewed and negative Neurologic: reports: Reviewed and negative Psychiatric: reports: Reviewed and negative Endocrine: reports: Reviewed and negative Immunocompromised: reports: Reviewed and negative PD PAST MEDICAL HISTORY - Past Medical History Past Medical History: Yes Cardiovascular: Hypertension, High cholesterol Respiratory: Asthma Neuro: None Endocrine/Autoimmune: HyPOthyroidism GI: Chronic constipation, Hemorrhoids, Other INTEGRATION PROJECT MANAGER: None : None HEENT: Chronic sinusitis Psych: None Musculoskeletal: None Derm: None - Past Surgical History Past Surgical History: Yes General: Appendectomy, Colonoscopy /INTEGRATION PROJECT MANAGER: Hysterectomy HEENT: Cataracts, Tonsil/Adenoidectomy - Present Medications Home Medications: Ambulatory Orders Medication Instructions Recorded Confirmed Levothyroxine [Synthroid] 25 mcg PO DAILY 11/02/13 03/25/18 Atorvastatin [Lipitor] 10 mg PO DAILY 04/06/14 03/25/18 Multivit-Min/FA/Lycopen/Lutein 1 tab PO DAILY 12/18/14 03/25/18 [Centrum Silver Tablet] Albuterol Sulf [Ventolin Hfa 1 - 2 puffs INH Q4HR PRN #1 inhaler 02/20/18 03/25/18 Inhaler] Aspirin 81 mg PO DAILY 03/22/18 03/25/18 Benzonatate [Tessalon Perle] 100 - 200 mg PO TID PRN #30 capsule 03/22/18 03/25/18 Nitrofurantoin Monohyd/M-Cryst 100 mg PO BID #10 capsule 03/22/18 03/25/18 [Macrobid 100 mg Capsule] Fluticasone [Flonase] 1 sprays JESSICA DAILY #1 bottle 03/27/18 Fluticasone/Salmeterol [Advair 1 each IH BID #1 blst.w.dev 03/27/18 250-50 Diskus] Montelukast [Singulair] 10 mg PO QPM #30 tablet 03/27/18 Tiotropium [place] [Spiriva] 18 mcg IH DAILY #30 cap.w.dev 03/27/18 Wheat Dextrin [Benefiber] 1 packet PO DAILY #30 packet 03/27/18 Azithromycin [Zithromax] 250 mg PO DAILY #6 tablet 08/23/18 predniSONE [Prednisone] 40 mg PO DAILY #10 tablet 08/23/18 Albuterol Sulf [Ventolin Hfa 2 - 3 puffs INH Q4HR PRN #1 inhaler 09/26/18 Inhaler] Doxycycline Hyclate 100 mg PO BID #14 capsule 09/26/18 dexAMETHasone [Decadron] 4 mg PO DAILY #7 tablet 09/26/18 Meclizine HCl 25 mg PO TID PRN #12 tab.chew 12/19/18 Sulfamethox/Trimeth 800/160 1 each PO BID #10 tablet 12/19/18 [Bactrim Ds 800/160] Albuterol Sulf [Ventolin Hfa 1 - 2 puffs INH Q4HR PRN #1 inhaler 02/25/19 Inhaler] Doxycycline Hyclate 100 mg PO BID #20 capsule 02/25/19 predniSONE [Deltasone] 20 mg PO [id number] #21 tab 02/25/19 Hydrocortisone [Anusol-Hc] 30 gm RC QPM PRN #1 cream..g. 11/23/19 - Allergies Allergies/Adverse Reactions: Allergies Allergy/AdvReac Type Severity Reaction Status Date / Time aztreonam Allergy Unknown Dizziness Verified 11/23/19 12:36 carbamazepine Allergy Unknown Dizziness Verified 11/23/19 12:36 Cephalosporins Allergy Unknown Dizziness Verified 11/23/19 12:36 Penicillins Allergy Unknown Dizziness Verified 11/23/19 12:36 - Social History Does the pt smoke?: No Smoking Status: Never smoker Does the pt drink ETOH?: No Does the pt have substance abuse?: No - Immunizations Immunizations are current?: Yes - POLST Patient has POLST: Yes POLST Status: Full Code PD ED PE NORMAL - Vitals Vital signs reviewed: Yes - General General: Alert and oriented X 3, No acute distress, Well developed/nourished - HEENT HEENT: Atraumatic, PERRL, EOMI, Moist mucous membranes - Neck Neck: Supple, no meningeal sign - Cardiac Cardiac: RRR, No murmur - Respiratory Respiratory: No respiratory distress, Clear bilaterally - Abdomen Abdomen: Soft, Non tender, Non distended - Rectal Rectal: Other (Small hemorrhoid at anal opening. No blood in rectum on digital rectal exam. No mass.) - Derm Derm: Warm and dry - Extremities Extremities: No deformity - Neuro Neuro: Alert and oriented X 3 - Psych Psych: Normal mood, Normal affect Results - Vitals Vitals: Vital Signs - 24 hr 11/23/19 12:36 Temperature 36.6 C Heart Rate 105 H Respiratory 16 Rate Blood Pressure 150/100 H O2 Saturation 97 Oxygen O2 Source Room air - Labs Labs: Laboratory Tests 11/23/19 11/23/19 11/23/19 13:00 13:00 13:00 WBC 6.3 RBC 3.83 L Hgb 9.8 L Hct 31.9 L MCV 83.3 MCH 25.6 L MCHC 30.7 L RDW 15.9 H Plt Count 273 MPV 8.4 Neut # (Auto) 4.3 Lymph # (Auto) 0.9 L [place] # (Auto) 0.6 Eos # (Auto) 0.4 Baso # (Auto) 0.1 Absolute Nucleated RBC 0.00 Nucleated RBC % 0.0 PT 12.0 INR 1.1 Sodium 135 Potassium 4.5 Chloride 99 L Carbon Dioxide 25 Anion Gap 11.0 BUN 20 Creatinine 1.4 H Estimated GFR (MDRD) 36 L Glucose 101 H Calcium 9.4 Total Bilirubin 0.7 AST 27 ALT 21 Alkaline Phosphatase 98 Total Protein 8.0 Albumin 4.1 Globulin 3.9 Albumin/Globulin Ratio 1.1 Lipase TNP PD MEDICAL DECISION MAKING - ED course Complexity details: reviewed old records, reviewed results, re-evaluated patient, considered differential, d/w patient, d/w family ED course: I discussed with the patient and her granddaughter that there is no evidence of a concerning level of blood loss on exam. The patient is noted to have had a drop in hemoglobin of approximately 2 g since February, but the acuity of this is uncertain. Given the blood with defecation has been going on for a very long time, and given the fact the patient has no constitutional symptoms, I not convinced that the patient has had a recent, significant blood loss. We have discussed the need for follow-up with the patient's primary care physician to discuss whether the patient needs another colonoscopy. Departure - Departure Disposition: 01 Home, Self Care Clinical Impression: Rectal bleeding Condition: Stable Instructions: ED Hematochezia Stable Prescriptions: Hydrocortisone [Anusol-Hc] 30 gm RC QPM PRN #1 cream..g. PRN Reason: Hemorrhoids Comments: There is no evidence of a concerning amount of blood loss today. You do have a mildly lower red blood cell count since February, but given that this is been nearly a year ago, to tell when or why this is dropped. Please follow-up with Dr. Hewitt to discuss whether you need to be on some iron or whether you should have a follow-up colonoscopy. You may take the Anusol HC to help calm any hemorrhoids.
[2019-11-23 14:54] VITALS: BP 174/84
== END 2019-11-23 14:54 | disposition home or self-care (01) ==
LOC: ED 12:31
DX: K62.5 Hemorrhage of anus and rectum (principal); K64.9 Unspecified hemorrhoids; I10 Essential (primary) hypertension
CPT/HCPCS: 36415; 80053; 83690; 85025; 85610; 86850; 86900; 86901; 99283; 99284

== ENCOUNTER 2020-07-15 15:56 | Outpatient (CLI) | payer MEDICARE, MEDICAID ==
--- NOTE | 2020-07-15 17:25 | Ultrasound Report ---
PROCEDURE: Ankle Brachial Index INDICATIONS: PAIN IN LEGS W/WALKING DISTANCES TECHNIQUE: Ankle-brachial indices were obtained bilaterally and recorded. COMPARISONS: None. FINDINGS: Right ankle brachial index (NOEL): 1.2 Left ankle brachial index (NOEL): 1.1 Healing potential: Ankle pressures >55 mm Hg in non-diabetics and >80 mm Hg in diabetics are likely to achieve primary h ealing of ischemic foot ulcers. Toe pressures >30 mm Hg are likely to achieve primary healing of ischemic foot ulcers, toe or transme tatarsal amputations. IMPRESSION: Normal ankle-brachial index bilaterally. Reviewed by: Karan Addison MD on 07/15/2020 4:24 PM [facility] Approved by: Karan Addison MD on 07/15/2020 4:24 PM [facility] Station ID: [id number]
== END 2020-07-15 15:57 | disposition home or self-care (01) ==
LOC: DI 15:56
PROVIDERS: ATTEND Physician Assistant
DX: M79.604 Pain in right leg (principal); M79.605 Pain in left leg
CPT/HCPCS: 93922

== ENCOUNTER 2020-07-30 15:46 | Emergency (ER) | payer MEDICARE, MEDICAID ==
[2020-07-30 16:34] LABS: BASOPHILS # (AUTO) 0.1 10^3/uL (0.0-0.1); BASOPHILS % (AUTO) 1.2 %; EOSINOPHILS # (AUTO) 0.1 10^3/uL (0.0-0.7); EOSINOPHILS % (AUTO) 2.2 %; HCT - HEMATOCRIT 38.5 % (37.0-47.0); HGB - HEMOGLOBIN 12.1 g/dL (12.0-16.0); LYMPHOCYTES # (AUTO) 0.8 10^3/uL (1.5-3.5); LYMPHOCYTES % (AUTO) 13.7 %; MEAN CORPUSCULAR HEMOGLOBIN 28.5 pg (27.0-31.0); MEAN CORPUSCULAR HGB CONC 31.4 g/dL (32.0-36.0); MEAN CORPUSCULAR VOLUME 90.6 fL (81.0-99.0); MEAN PLATELET VOLUME 8.6 fL (7.9-10.8); MONOCYTES # (AUTO) 0.3 10^3/uL (0.0-1.0); MONOCYTES % (AUTO) 5.4 %; NEUTROPHILS # (AUTO) 4.5 10^3/uL (1.5-6.6); NEUTROPHILS % (AUTO) 77.2 %; PLT - PLATELET COUNT 244 10^3/uL (130-450); RED BLOOD COUNT 4.25 10^6/uL (4.20-5.40); WHITE BLOOD COUNT 5.8 x10^3/uL (4.8-10.8)
[2020-07-30 16:45] LABS: BILIRUBIN,URINE NEGATIVE (NEGATIVE); GLUCOSE, URINE (UA) NEGATIVE (NEGATIVE); KETONES,URINE (UA) NEGATIVE (NEGATIVE); LEUKOCYTE ESTERASE, URINE NEGATIVE (NEGATIVE); NITRITE,URINE NEGATIVE (NEGATIVE); OCCULT BLOOD,URINE TRACE-INTA (NEGATIVE); PROTEIN,URINE NEGATIVE (NEGATIVE); UROBILINOGEN,URINE 0.2 (NORMAL) E.U./dL (NORMAL)
[2020-07-30 16:46] LABS: CLARITY,URINE CLEAR (CLEAR)
[2020-07-30 16:48] LABS: ALBUMIN 4.1 g/dL (3.2-5.5); ALBUMIN/GLOBULIN RATIO 1.1 (1.0-2.2); BILIRUBIN,TOTAL 0.7 mg/dL (0.2-1.0); CALCIUM 9.8 mg/dL (8.5-10.3); CREATININE 1.2 mg/dL (0.4-1.0); POTASSIUM 4.4 mmol/L (3.5-5.0); TOTAL PROTEIN 7.9 g/dL (6.7-8.2)
--- NOTE | 2020-07-30 17:44 | CT Report ---
PROCEDURE: HEAD WO INDICATIONS: dizzy x 1 year TECHNIQUE: Noncontrast 4.5 mm thick angled axial sections acquired from the foramen magnum to the vertex. For r adiation dose reduction, the following was used: automated exposure control, adjustment of mA and/or kV according to patient size. COMPARISON: None. FINDINGS: Image quality: Excellent. CSF spaces: Basal cisterns are patent. No extra-axial fluid collections. Ventricles are normal in size and shape. Brain: No midline shift. No intracranial masses or hemorrhage. Bellamy-white matter interface is norm al. Age-related volume loss and mild to moderate small vessel ischemic change. Intracranial carotid calcifications. Skull and face: Calvarium and visualized facial bones are intact, without suspicious lesions. Sinuses: The right maxillary sinus is likely completely opacified. There is a large air-fluid level i n the left maxillary sinus as well as significant mucosal thickening. There is subtotal opacification of the anterior and mid ethmoids bilaterally. There is bilateral sphenoid sinus mucosal thickening. The frontal sinuses are hypoaerated. IMPRESSION: 1. Extensive sinus disease. 2. Age-related volume loss and small vessel ischemic change. 3. No evidence acute stroke, or, or mass. Reviewed by: Fareed Akins MD on 07/30/2020 4:43 PM A[facility] Approved by: Fareed Akins MD on 07/30/2020 4:43 PM [facility] Station ID: [id number]
[2020-07-30 18:46] VITALS: BP 185/98
--- NOTE | 2020-07-30 18:49 | ED Physician Documentation ---
History of Present Illness - Stated complaint Stated Complaint: DIZZY,WEAK - Chief complaint Chief Complaint: Neuro - History obtained from History obtained from: Patient, Family - History of Present Illness Timing: Other (1 year) Pain level max: 3 Pain level now: 2 - Additonal information Additional information: Patient is an 84-year-old female she states that she has had intermittent dizziness for the past year. She states occasionally she has facial pain. Sometimes has a sore throat. No focal weakness or numbness. No loss of bowel or bladder control. Nothing makes the dizziness better or worse. She states she took a dizziness pill but does not know what it is. She also states that her ears have felt "full". dull, aching facial pain. Review of Systems Ten Systems: 10 systems reviewed and negative Constitutional: denies: Fever, Chills Cardiac: denies: Chest pain / pressure, Palpitations PD PAST MEDICAL HISTORY - Past Medical History Past Medical History: Yes Cardiovascular: Hypertension, High cholesterol, Other Respiratory: Asthma Neuro: None Endocrine/Autoimmune: HyPOthyroidism GI: Chronic constipation, Hemorrhoids, Other MEDICAL/SURGERY REGISTERED NURSE: None : None HEENT: Chronic sinusitis Psych: None Musculoskeletal: None Derm: None - Past Surgical History Past Surgical History: Yes General: Appendectomy, Colonoscopy /MEDICAL/SURGERY REGISTERED NURSE: Hysterectomy HEENT: Cataracts, Tonsil/Adenoidectomy - Present Medications Home Medications: Ambulatory Orders Medication Instructions Recorded Confirmed Levothyroxine [Synthroid] 25 mcg PO DAILY 11/02/13 07/30/20 Atorvastatin [Lipitor] 10 mg PO DAILY 04/06/14 07/30/20 Multivit-Min/FA/Lycopen/Lutein 1 tab PO DAILY 12/18/14 07/30/20 [Centrum Silver Tablet] Albuterol Sulf [Ventolin Hfa 1 - 2 puffs INH Q4HR PRN #1 inhaler 02/25/19 07/30/20 Inhaler] Amlodipine Besylate [Norvasc] 2.5 mg PO DAILY 07/30/20 07/30/20 Doxycycline Hyclate 100 mg PO BID #20 07/30/20 - Allergies Allergies/Adverse Reactions: Allergies Allergy/AdvReac Type Severity Reaction Status Date / Time aztreonam Allergy Unknown Dizziness Verified 07/30/20 16:06 carbamazepine Allergy Unknown Dizziness Verified 07/30/20 16:06 Cephalosporins Allergy Unknown Dizziness Verified 07/30/20 16:06 Penicillins Allergy Unknown Dizziness Verified 07/30/20 16:06 - Social History Does the pt smoke?: No Smoking Status: Former smoker Does the pt drink ETOH?: No Does the pt have substance abuse?: No - Immunizations Immunizations are current?: Yes - POLST Patient has POLST: Yes POLST Status: Full Code PD ED PE NORMAL - Vitals Vital signs reviewed: Yes - General General: Alert and oriented X 3, No acute distress, Well developed/nourished - HEENT HEENT: Atraumatic, PERRL, Moist mucous membranes, Pharynx benign, Other (Mild erythema to the bilateral TM, Tenderness to palpation over the frontal and maxillary sinuses.) - Neck Neck: Supple, no meningeal sign, No adenopathy - Cardiac Cardiac: RRR, Strong equal pulses - Respiratory Respiratory: No respiratory distress, Clear bilaterally - Abdomen Abdomen: Soft, Non tender, Non distended - Back Back: No spinal TTP - Derm Derm: Warm and dry - Extremities Extremities: No edema, No calf tenderness / cord - Neuro Neuro: Alert and oriented X 3, atm technician 2-12 intact, No motor deficit, No sensory deficit, Other (No nystagmus.) Eye Opening: Spontaneous Motor: Obeys Commands Verbal: Oriented GCS Score: 15 - Psych Psych: Normal mood, Normal affect Results - Vitals Vitals: Vital Signs - 24 hr 07/30/20 07/30/20 07/30/20 16:01 16:58 17:38 Temperature 36.6 C 36.9 C 36.4 C L Heart Rate 93 98 96 Respiratory 20 12 16 Rate Blood Pressure 146/66 H 192/105 H O2 Saturation 99 99 99 07/30/20 18:44 Temperature 37.3 C Heart Rate 93 Respiratory 18 Rate Blood Pressure 185/98 H O2 Saturation 98 Oxygen O2 Source Room air - Labs Labs: Laboratory Tests 07/30/20 07/30/20 07/30/20 16:19 16:30 16:30 WBC 5.8 RBC 4.25 Hgb 12.1 Hct 38.5 MCV 90.6 MCH 28.5 MCHC 31.4 L RDW 14.0 Plt Count 244 MPV 8.6 Neut # (Auto) 4.5 Lymph # (Auto) 0.8 L [place] # (Auto) 0.3 Eos # (Auto) 0.1 Baso # (Auto) 0.1 Absolute Nucleated RBC 0.00 Nucleated RBC % 0.0 Sodium 142 Potassium 4.4 Chloride 106 Carbon Dioxide 24 Anion Gap 12.0 BUN 17 Creatinine 1.2 H Estimated GFR (MDRD) 43 L Glucose 131 H Calcium 9.8 Total Bilirubin 0.7 AST 31 ALT 23 Alkaline Phosphatase 80 Total Protein 7.9 Albumin 4.1 Globulin 3.8 Albumin/Globulin Ratio 1.1 Lipase 37 Urine Color YELLOW Urine Clarity CLEAR Urine pH 7.0 Ur Specific [place] 1.020 Urine Protein NEGATIVE Urine Glucose (UA) NEGATIVE Urine Ketones NEGATIVE Urine Occult Blood TRACE-INTA Urine Nitrite NEGATIVE Urine Bilirubin NEGATIVE Urine Urobilinogen 0.2 (NORMAL) Ur Leukocyte Esterase NEGATIVE Ur Microscopic Review NOT INDICATED Urine Culture Comments NOT INDICATED - Rads (name of study) head CT Radiology: Prelim report reviewed, EMP read contemporaneously PD MEDICAL DECISION MAKING - ED course Complexity details: reviewed results, re-evaluated patient, considered differential, d/w patient ED course: 84-year-old female complaint of dizziness for the past year. She has extensive sinus disease on CT scan. She is allergic to penicillins, therefore we will place her on doxycycline. No evidence of stroke. NIH stroke scale of 0. No focal neurological deficits. No nystagmus. Patient is well-appearing, nontoxic. Afebrile. Patient counseled regarding signs and symptoms for which I believe and urgent re-evaluation would be necessary. Patient with good understanding of and agreement to plan and is comfortable going home at this time This document was made in part using voice recognition software. While efforts are made to proofread this document, sound alike and grammatical errors may occur. Extensive sinus disease. Right maxillary sinuses likely completely opacified. Large air-fluid level in the left maxillary sinus as well as significant mucosal thickening. Subtotal opacification of the anterior and mid ethmoids bilaterally. Bilateral sphenoid sinus mucosal thickening. Frontal sinuses are hyper aerated. No evidence of acute stroke, mass. There is age-related volume loss and small vessel ischemic change. Departure - Departure Disposition: 01 Home, Self Care Clinical Impression: Sinusitis Qualifiers: Sinusitis location: pansinusitis Chronicity: acute Recurrence: not specified as recurrent Qualified Code(s): J01.40 - Acute pansinusitis, unspecified Condition: Good Instructions: ED Sinusitis Abx Tx Follow-Up: TODD WHITE PA-C [Primary Care Provider] - Within 1 week Prescriptions: Doxycycline Hyclate 100 mg PO BID #20 Comments: You have extensive sinus disease on your CT scan. We will treat you with antibiotics. Please do not take your multivitamin while you are taking the antibiotic. Your doctor may want to refer you to an ear nose and throat doctor for further evaluation. Head CT Extensive sinus disease. Right maxillary sinuses likely completely opacified. Large air-fluid level in the left maxillary sinus as well as significant mucosal thickening. Subtotal opacification of the anterior and mid ethmoids bilaterally. Bilateral sphenoid sinus mucosal thickening. Frontal sinuses are hyper aerated. No evidence of acute stroke, mass. There is age-related volume loss and small vessel ischemic change. Discharge Date/Time: 07/30/20 19:18
[2020-07-30] MEDS ORDERED: DOXYCYCLINE 100 MG TABLET PO STA (18:54)
== END 2020-07-30 19:18 | disposition home or self-care (01) ==
LOC: ED 15:46
DX: J01.40 Acute pansinusitis, unspecified (principal); I10 Essential (primary) hypertension; Z87.891 Personal history of nicotine dependence
CPT/HCPCS: 36415; 70450; 80053; 81003; 83690; 85025; 99284; A9270; 81001; 87086; 93005

== ENCOUNTER 2020-09-05 07:28 | Outpatient (CLI) | payer MEDICARE, MEDICAID | END 2020-09-05 07:29 | disposition home or self-care (01) | LOC: DI 07:28 | PROVIDERS: ATTEND Physician Assistant | DX: I49.3 Ventricular premature depolarization (principal); I51.7 Cardiomegaly | CPT/HCPCS: 93306 ==

== ENCOUNTER 2020-10-30 15:04 | Outpatient (CLI) | payer MEDICARE, MEDICAID | END 2020-10-30 15:05 | disposition critical access hospital (66) | LOC: EMS 15:04 | DX: R42 Dizziness and giddiness (principal) | CPT/HCPCS: A0425; A0429 ==

== ENCOUNTER 2020-10-30 15:24 | Emergency (ER) | payer MEDICARE, MEDICAID ==
[2020-10-30 16:02] LABS: BASOPHILS % (AUTO) 0.8 %; EOSINOPHILS # (AUTO) 0.3 10^3/uL (0.0-0.7); EOSINOPHILS % (AUTO) 6.2 %; HCT - HEMATOCRIT 34.8 % (37.0-47.0); HGB - HEMOGLOBIN 10.9 g/dL (12.0-16.0); LYMPHOCYTES # (AUTO) 1.2 10^3/uL (1.5-3.5); LYMPHOCYTES % (AUTO) 25.3 %; MEAN CORPUSCULAR HEMOGLOBIN 27.9 pg (27.0-31.0); MEAN CORPUSCULAR HGB CONC 31.3 g/dL (32.0-36.0); MEAN PLATELET VOLUME 8.9 fL (7.9-10.8); MONOCYTES # (AUTO) 0.5 10^3/uL (0.0-1.0); MONOCYTES % (AUTO) 10.4 %; NEUTROPHILS # (AUTO) 2.8 10^3/uL (1.5-6.6); NEUTROPHILS % (AUTO) 56.9 %; PLT - PLATELET COUNT 264 10^3/uL (130-450); RED BLOOD COUNT 3.91 10^6/uL (4.20-5.40); RED CELL DISTRIBUTION WIDTH 14.4 % (12.0-15.0); WHITE BLOOD COUNT 4.8 x10^3/uL (4.8-10.8)
[2020-10-30 16:03] LABS: SLIDE REVIEW? Indicated
[2020-10-30 16:11] LABS: ALBUMIN 3.7 g/dL (3.2-5.5); BILIRUBIN,TOTAL 0.3 mg/dL (0.2-1.0); CALCIUM 9.3 mg/dL (8.5-10.3); CREATININE 1.3 mg/dL (0.4-1.0); POTASSIUM 4.3 mmol/L (3.5-5.0); TOTAL PROTEIN 7.4 g/dL (6.7-8.2)
[2020-10-30 16:19] LABS: PLATELET ESTIMATE, MANUAL NORMAL (130-450,000) (NORMAL); PLATELET MORPHOLOGY 1+ LARGE PLATELETS (NORMAL); RBC MORPHOLOGY (MULTIPLE) NORMAL APPEARANCE (NORMAL)
--- NOTE | 2020-10-30 16:26 | ED Physician Documentation ---
History of Present Illness - Stated complaint Stated Complaint: DIZZY - Chief complaint Chief Complaint: Neuro - History obtained from History obtained from: Patient - History of Present Illness Timing: Other (6-9 months) Pain level max: 0 Pain level now: 0 - Additonal information Additional information: Patient is a 85-year-old female who states that she has been "dizzy" for the past 9 months to 1 year. Nothing makes this better or worse. She does not feel like the room is spinning. She does not feel lightheaded. She does not feel near syncopal. She states she "just does not feel right". She cannot describe the sensation any more than this. She has been seen here previously with no acute findings on head CT or laboratory testing other than sinus disease. She was placed on antibiotics. Never followed up with her doctor. Does not recall if the antibiotics made her feel any better or worse. No numbness or tingling. No falls. No headache. No altered mental status. Review of Systems Ten Systems: 10 systems reviewed and negative Constitutional: denies: Fever, Chills Ears: denies: Ear pain Nose: denies: Rhinorrhea / runny nose, Congestion Throat: denies: Sore throat Cardiac: denies: Chest pain / pressure Respiratory: denies: Dyspnea, Cough GI: denies: Abdominal Pain, Nausea, Vomiting, Diarrhea : denies: Dysuria, Frequency, Hesitancy Skin: denies: Rash Musculoskeletal: denies: Neck pain, Back pain Neurologic: denies: Generalized weakness, Seizure, Confused PD PAST MEDICAL HISTORY - Past Medical History Cardiovascular: Hypertension, High cholesterol, Other Respiratory: Asthma Neuro: None Endocrine/Autoimmune: HyPOthyroidism GI: Chronic constipation, Hemorrhoids, Other SUPERVISOR TESTING: None : None HEENT: Chronic sinusitis Psych: None Musculoskeletal: None Derm: None - Past Surgical History Past Surgical History: Yes General: Appendectomy, Colonoscopy /SUPERVISOR TESTING: Hysterectomy HEENT: Cataracts, Tonsil/Adenoidectomy - Present Medications Home Medications: Ambulatory Orders Medication Instructions Recorded Confirmed Levothyroxine [Synthroid] 25 mcg PO DAILY 11/02/13 07/30/20 Atorvastatin [Lipitor] 10 mg PO DAILY 04/06/14 07/30/20 Multivit-Min/FA/Lycopen/Lutein 1 tab PO DAILY 12/18/14 07/30/20 [Centrum Silver Tablet] Albuterol Sulf [Ventolin Hfa 1 - 2 puffs INH Q4HR PRN #1 inhaler 02/25/19 07/30/20 Inhaler] Amlodipine Besylate [Norvasc] 2.5 mg PO DAILY 07/30/20 07/30/20 Doxycycline Hyclate 100 mg PO BID #20 07/30/20 - Allergies Allergies/Adverse Reactions: Allergies Allergy/AdvReac Type Severity Reaction Status Date / Time aztreonam Allergy Unknown Dizziness Verified 10/30/20 15:36 carbamazepine Allergy Unknown Dizziness Verified 10/30/20 15:36 Cephalosporins Allergy Unknown Dizziness Verified 10/30/20 15:36 Penicillins Allergy Unknown Dizziness Verified 10/30/20 15:36 - Social History Does the pt smoke?: No Smoking Status: Former smoker Does the pt drink ETOH?: No Does the pt have substance abuse?: No - Immunizations Immunizations are current?: Yes - POLST Patient has POLST: Yes POLST Status: Full Code PD ED PE NORMAL - Vitals Vital signs reviewed: Yes - General General: Alert and oriented X 3, No acute distress - HEENT HEENT: Atraumatic, PERRL, EOMI, Moist mucous membranes - Neck Neck: Supple, no meningeal sign - Cardiac Cardiac: RRR, Strong equal pulses - Respiratory Respiratory: No respiratory distress, Clear bilaterally - Abdomen Abdomen: Soft, Non tender, Non distended - Derm Derm: Warm and dry - Extremities Extremities: No edema, No calf tenderness / cord - Neuro Neuro: Alert and oriented X 3, infirmary attendant 2-12 intact, No motor deficit, No sensory deficit, Normal speech, Other (Normal cerebellar tests. No nystagmus. Negative Hallpike. Normal gait) - Psych Psych: Normal mood, Normal affect Results - Vitals Vitals: Vital Signs - 24 hr 10/30/20 10/30/20 15:25 16:34 Temperature 36.0 C L Heart Rate 87 73 Respiratory 18 18 Rate Blood Pressure 174/99 H 171/72 H O2 Saturation 97 96 Oxygen O2 Source Room air - EKG (time done) 1554 Rate: Rate (enter#) (72) Rhythm: NSR [place]: Normal Intervals: Normal [place] QRS: Normal Ischemia: Normal ST segments - Labs Labs: Laboratory Tests 10/30/20 10/30/20 10/30/20 15:53 15:53 15:53 WBC 4.8 RBC 3.91 L Hgb 10.9 L Hct 34.8 L MCV 89.0 MCH 27.9 MCHC 31.3 L RDW 14.4 Plt Count 264 MPV 8.9 Neut # (Auto) 2.8 Lymph # (Auto) 1.2 L [place] # (Auto) 0.5 Eos # (Auto) 0.3 Baso # (Auto) 0.0 Absolute Nucleated RBC 0.00 Nucleated RBC % 0.0 Manual Slide Review Indicated Platelet Estimate NORMAL (130-450,000) Platelet Morphology 1+ LARGE PLATELETS RBC Morph Micro Appear NORMAL APPEARANCE Sodium 141 Potassium 4.3 Chloride 108 Carbon Dioxide 25 Anion Gap 8.0 BUN 19 Creatinine 1.3 H Estimated GFR (MDRD) 39 L Glucose 107 H Calcium 9.3 Total Bilirubin 0.3 AST 23 ALT 18 Alkaline Phosphatase 77 Troponin I High Sens 5.9 Total Protein 7.4 Albumin 3.7 Globulin 3.7 Albumin/Globulin Ratio 1.0 Lipase 45 PD MEDICAL DECISION MAKING - ED course Complexity details: reviewed results, re-evaluated patient, considered differential, d/w patient ED course: Unclear etiology the patient's symptoms. Recommend that she follow-up with her doctor for an MRI as symptoms have been going on for about a year. Has already had a negative head CT other than sinus disease. No significant lab a bnormalities. We will not repeat the head CT today as she has had no falls and no change in her symptoms. Patient counseled regarding signs and symptoms for which I believe and urgent re-evaluation would be necessary. Patient with good understanding of and agreement to plan and is comfortable going home at this time This document was made in part using voice recognition software. While efforts are made to proofread this document, sound alike and grammatical errors may occur. Departure - Departure Disposition: 01 Home, Self Care Clinical Impression: Dizziness Condition: Good Instructions: ED Dizziness [facility] Follow-Up: Your,doctor in 1 week [Other] Comments: Your testing does not show any acute abnormalities today. You need to follow-up with your primary care doctor for further care including an MRI which we cannot perform in the emergency department. Please continue your current medications.
[2020-10-30 17:12] VITALS: BP 175/91
== END 2020-10-30 17:18 | disposition home or self-care (01) ==
LOC: EDUNIT# → ED 15:24
DX: R42 Dizziness and giddiness (principal); I10 Essential (primary) hypertension; Z87.891 Personal history of nicotine dependence
CPT/HCPCS: 36415; 80053; 83690; 84484; 85025; 93005; 99283; 99284

== ENCOUNTER 2022-02-19 07:16 | Outpatient (CLI) | payer MEDICARE, MEDICAID ==
[2022-02-19 11:38] LABS: BASOPHILS # (AUTO) 0.1 10^3/uL (0.0-0.1); BASOPHILS % (AUTO) 1.3 %; EOSINOPHILS # (AUTO) 0.4 10^3/uL (0.0-0.7); EOSINOPHILS % (AUTO) 6.6 %; HCT - HEMATOCRIT 33.5 % (37.0-47.0); HGB - HEMOGLOBIN 9.8 g/dL (12.0-16.0); LYMPHOCYTES # (AUTO) 1.4 10^3/uL (1.5-3.5); LYMPHOCYTES % (AUTO) 22.3 %; MEAN CORPUSCULAR HEMOGLOBIN 24.7 pg (27.0-31.0); MEAN CORPUSCULAR HGB CONC 29.3 g/dL (32.0-36.0); MEAN CORPUSCULAR VOLUME 84.6 fL (81.0-99.0); MEAN PLATELET VOLUME 9.2 fL (7.9-10.8); MONOCYTES # (AUTO) 0.7 10^3/uL (0.0-1.0); MONOCYTES % (AUTO) 10.2 %; NEUTROPHILS # (AUTO) 3.8 10^3/uL (1.5-6.6); NEUTROPHILS % (AUTO) 59.4 %; PLT - PLATELET COUNT 312 10^3/uL (130-450); RED BLOOD COUNT 3.96 10^6/uL (4.20-5.40); RED CELL DISTRIBUTION WIDTH 16.7 % (12.0-15.0); WHITE BLOOD COUNT 6.4 x10^3/uL (4.8-10.8)
[2022-02-19 12:26] LABS: THYROID STIMULATING HORMONE 5.01 uIU/mL (0.34-5.60)
[2022-02-19 12:27] LABS: ALBUMIN 4.2 g/dL (3.2-5.5); ALBUMIN/GLOBULIN RATIO 1.1 (1.0-2.2); ALKALINE PHOSPHATASE 90 IU/L (42-121); ALT ALANINE AMINOTRANSFERASE 22 IU/L (10-60); AST ASPARTATE AMINOTRANSFERASE 32 IU/L (10-42); BILIRUBIN,TOTAL 0.8 mg/dL (0.2-1.0); BUN - BLOOD UREA NITROGEN 21 mg/dL (6-20); CALCIUM 9.2 mg/dL (8.5-10.3); CARBON DIOXIDE - CO2 25 mmol/L (21-32); CHLORIDE 103 mmol/L (101-111); CHOL/HDL RATIO 1.9 (<4.4); CHOLESTEROL 173 mg/dL; CREATININE 1.4 mg/dL (0.4-1.0); GFR - MDRD 36 (>89); GLUCOSE 94 mg/dL (70-100); HDL CHOLESTEROL 89 mg/dL; LDL CHOLESTEROL,CALCULATED 69 mg/dL; LDL/HDL RATIO 0.8 (<4.4); POTASSIUM 4.4 mmol/L (3.5-5.0); SODIUM 139 mmol/L (135-145); TRIGLYCERIDES 77 mg/dL; VLDL CHOLESTEROL 15 mg/dL
== END 2022-02-19 07:17 | disposition home or self-care (01) ==
LOC: LAB.N 07:16
PROVIDERS: ATTEND Physician Assistant
DX: I10 Essential (primary) hypertension (principal); E03.9 Hypothyroidism, unspecified; E78.5 Hyperlipidemia, unspecified
CPT/HCPCS: 36415; 80053; 80061; 83721; 84443; 85025

== ENCOUNTER 2022-02-21 08:00 | Outpatient (CLI) | payer MEDICARE, MEDICAID ==
[2022-02-22 21:16] LABS: FECAL OCCULT BLOOD (FIT) NEGATIVE (NEGATIVE)
== END 2022-02-21 23:59 | disposition home or self-care (01) ==
LOC: LAB.N 08:00
PROVIDERS: ATTEND Physician Assistant
DX: D64.9 Anemia, unspecified (principal)
CPT/HCPCS: 82274

== ENCOUNTER 2022-05-24 16:28 | Outpatient (CLI) | payer MEDICARE, MEDICAID | END 2022-05-24 23:59 | disposition critical access hospital (66) | LOC: EMS 16:28 | DX: R42 Dizziness and giddiness (principal) | CPT/HCPCS: A0425; A0429 ==

== ENCOUNTER 2022-05-24 16:51 | Emergency (ER) | payer MEDICARE, MEDICAID ==
[2022-05-24] MEDS ORDERED: MECLIZINE 12.5 MG TABLET PO STA (16:54)
[2022-05-24] MEDS ORDERED: SODIUM CHLORIDE 0.9% 1,000 ML IV STA (16:54)
--- NOTE | 2022-05-24 17:31 | ED Physician Documentation ---
History of Present Illness - Stated complaint Stated Complaint: DIZZY/EAR PX - Chief complaint Chief Complaint: Neuro - History obtained from History obtained from: Patient, EMS - Additonal information Additional information: The patient comes to the emergency department with chief complaint of dizziness. She has a longstanding history of some degree of vertigo which seems to bother her every day, but she is able to live with it fairly well. However, it seems that the last couple days her vertigo has been worse. She states it feels like things are moving around. She denies any focal neurologic deficits. The patient really cannot clarify what exactly seems to make the dizziness worse. When I asked her if it is worse with standing or sitting up suddenly or with turning her head certain ways or certain positions, she begins to tell me about a lesion that was removed from her nose and a subsequent sinus infection. The patient does note that she fell yesterday and was able to get herself up. She has a bruise on her left hip but otherwise does not feel that she was injured. The patient states she has not been bumping into wilson when she is walking at home but just feels a bit unsteady. She does not use a walker, cane, or any other assistive device when walking. No headache or recent illness. No nausea or vomiting. She does note that her mouth felt dry this morning and she thinks she maybe has not been drinking enough water. 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: None : None HEENT: Chronic sinusitis Psych: None Musculoskeletal: None Derm: None - Past Surgical History Past Surgical History: Yes General: Appendectomy, Colonoscopy /CONTROLLER OPERATIONS AND HR MANAGER: Hysterectomy HEENT: Cataracts, Tonsil/Adenoidectomy - Present Medications Home Medications: Ambulatory Orders Medication Instructions Recorded Confirmed Levothyroxine [Synthroid] 25 mcg PO DAILY 11/02/13 07/30/20 Atorvastatin [Lipitor] 10 mg PO DAILY 04/06/14 07/30/20 Multivit-Min/FA/Lycopen/Lutein 1 tab PO DAILY 12/18/14 07/30/20 [Centrum Silver Tablet] Albuterol Sulf [Ventolin Hfa 1 - 2 puffs INH Q4HR PRN #1 inhaler 02/25/19 07/30/20 Inhaler] Amlodipine Besylate [Norvasc] 2.5 mg PO DAILY 07/30/20 07/30/20 Doxycycline Hyclate 100 mg PO BID #20 07/30/20 - Allergies Allergies/Adverse Reactions: Allergies Allergy/AdvReac Type Severity Reaction Status Date / Time aztreonam Allergy Unknown Dizziness Verified 10/30/20 15:36 carbamazepine Allergy Unknown Dizziness Verified 10/30/20 15:36 Cephalosporins Allergy Unknown Dizziness Verified 10/30/20 15:36 Penicillins Allergy Unknown Dizziness Verified 10/30/20 15:36 - Social History Does the pt smoke?: No Smoking Status: Former smoker Does the pt drink ETOH?: No Does the pt have substance abuse?: No - Immunizations Immunizations are current?: Yes - POLST Patient has POLST: Yes POLST Status: Full Code PD ED PE NORMAL - Vitals Vital signs reviewed: Yes - General General: Alert and oriented X 3, No acute distress, Well developed/nourished - HEENT HEENT: Atraumatic, PERRL, EOMI, Moist mucous membranes - Neck Neck: Supple, no meningeal sign - Cardiac Cardiac: RRR, No murmur, Strong equal pulses - Respiratory Respiratory: No respiratory distress, Clear bilaterally - Abdomen Abdomen: Soft, Non tender, Non distended - Derm Derm: Normal color, Warm and dry, No rash - Extremities Extremities: No deformity, No edema - Neuro Neuro: Other (Alert and appropriate, no focal deficits. Fairly patient reports no vertigo when I sit her up, but does note increase in vertigo when I have her turn her head from side to side on exam.) - Psych Psych: Normal mood, Normal affect Results - Vitals Vitals: Oxygen O2 Source Room air - Labs Labs: Laboratory Tests 05/24/22 05/24/22 17:47 17:47 WBC 5.8 RBC 3.70 L Hgb 10.1 L Hct 32.2 L MCV 87.0 MCH 27.3 MCHC 31.4 L RDW 17.6 H Plt Count 245 MPV 9.2 Neut # (Auto) 3.3 Lymph # (Auto) 1.4 L [place] # (Auto) 0.6 Eos # (Auto) 0.4 Baso # (Auto) 0.1 Absolute Nucleated RBC 0.00 Nucleated RBC % 0.0 Sodium 138 Potassium 5.0 Chloride 102 Carbon Dioxide 26 Anion Gap 10.0 BUN 25 H Creatinine 1.4 H Estimated GFR (MDRD) 36 L Glucose 95 Calcium 9.5 Total Bilirubin 0.3 AST 29 ALT 22 Alkaline Phosphatase 75 Total Protein 7.3 Albumin 3.7 Globulin 3.6 Albumin/Globulin Ratio 1.0 Lipase 65 H PD Medical Decision Making - ED course Complexity details: reviewed old records, reviewed results, re-evaluated patient, considered differential, d/w patient ED course: Patient was given meclizine and IV fluids in the emergency department, and worked up with laboratory studies. Patient's labs were unremarkable. She was feeling much better after medications and fluids and felt she was stable for discharge home. She was able to ambulate in the emergency department without difficulty. We have discussed the need for follow-up and the usual indications for return. Departure - Departure Disposition: 01 Home, Self Care Clinical Impression: Vertigo Condition: Stable Instructions: ED BPV Vertigo Comments: Your labs look good. There is no evidence of an emergent cause of your vertigo at this time. Please continue your home medications and follow-up with your doctor as needed. Please also be sure you are drinking plenty of fluids, as lightheadedness from dehydration will make your underlying vertigo feel worse as well. Discharge Date/Time: 05/24/22 19:05
[2022-05-24 18:00] LABS: BASOPHILS # (AUTO) 0.1 10^3/uL (0.0-0.1); BASOPHILS % (AUTO) 1.5 %; EOSINOPHILS # (AUTO) 0.4 10^3/uL (0.0-0.7); EOSINOPHILS % (AUTO) 7.5 %; HCT - HEMATOCRIT 32.2 % (37.0-47.0); HGB - HEMOGLOBIN 10.1 g/dL (12.0-16.0); LYMPHOCYTES # (AUTO) 1.4 10^3/uL (1.5-3.5); LYMPHOCYTES % (AUTO) 23.7 %; MEAN CORPUSCULAR HEMOGLOBIN 27.3 pg (27.0-31.0); MEAN CORPUSCULAR HGB CONC 31.4 g/dL (32.0-36.0); MEAN PLATELET VOLUME 9.2 fL (7.9-10.8); MONOCYTES # (AUTO) 0.6 10^3/uL (0.0-1.0); MONOCYTES % (AUTO) 10.1 %; NEUTROPHILS # (AUTO) 3.3 10^3/uL (1.5-6.6); NEUTROPHILS % (AUTO) 56.7 %; PLT - PLATELET COUNT 245 10^3/uL (130-450); RED CELL DISTRIBUTION WIDTH 17.6 % (12.0-15.0); WHITE BLOOD COUNT 5.8 x10^3/uL (4.8-10.8)
[2022-05-24 18:17] LABS: ALBUMIN 3.7 g/dL (3.2-5.5); BILIRUBIN,TOTAL 0.3 mg/dL (0.2-1.0); CALCIUM 9.5 mg/dL (8.5-10.3); CREATININE 1.4 mg/dL (0.4-1.0); TOTAL PROTEIN 7.3 g/dL (6.7-8.2)
[2022-05-24] MEDS ORDERED: ACETAMINOPHEN 500 MG TABLET PO STA (18:19)
[2022-05-24 18:41] VITALS: BP 179/78
== END 2022-05-24 19:05 | disposition home or self-care (01) ==
LOC: EDUNIT# → ED 16:51
DX: R42 Dizziness and giddiness (principal); I10 Essential (primary) hypertension; E78.00 Pure hypercholesterolemia, unspecified; E03.9 Hypothyroidism, unspecified; Z79.899 Other long term (current) drug therapy; Z87.891 Personal history of nicotine dependence
CPT/HCPCS: 36415; 80053; 83690; 85025; 99283; 99284; A9270

== ENCOUNTER 2022-06-04 12:12 | Outpatient (CLI) | payer MEDICARE, MEDICAID | END 2022-06-04 23:59 | disposition critical access hospital (66) | LOC: EMS 12:12 | DX: R42 Dizziness and giddiness (principal) | CPT/HCPCS: A0425; A0429 ==

== ENCOUNTER 2022-06-04 12:35 | Emergency (ER) | payer MEDICARE, MEDICAID ==
--- NOTE | 2022-06-04 12:43 | ED Physician Documentation ---
History of Present Illness - Stated complaint Stated Complaint: DIZZY - History obtained from History obtained from: Patient - Additonal information Additional information: This is an 86-year-old woman who presents by ambulance for the evaluation of dizziness. She cannot describe the dizziness. She states "I feel like I am going to ." When asked if she felt like she was spinning or vertiginous she replied no. She denies lightheadedness. She denies disequilibrium. She denies trouble walking. There is no associated headache, chest pain, or trouble breathing with this. She says it been going on for about a year but worse toda y. Review of the chart shows its actually been going on for longer than a year, she was seen by my partner, Dr. Alcazar about 7 months ago at which point she also said it was going on for a year. She was seen for similar episode in December 2018. She has had prior work-ups including labs, EKGs, head CT without acute findings. 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: None : None HEENT: Chronic sinusitis Psych: None Musculoskeletal: None Derm: None - Past Surgical History Past Surgical History: Yes General: Appendectomy, Colonoscopy /ORTHOTIC AND PROSTHETIC TECHNICIAN: Hysterectomy HEENT: Cataracts, Tonsil/Adenoidectomy - Present Medications Home Medications: Ambulatory Orders Medication Instructions Recorded Confirmed Levothyroxine [Synthroid] 25 mcg PO DAILY 11/02/13 07/30/20 Atorvastatin [Lipitor] 10 mg PO DAILY 04/06/14 07/30/20 Multivit-Min/FA/Lycopen/Lutein 1 tab PO DAILY 12/18/14 07/30/20 [Centrum Silver Tablet] Albuterol Sulf [Ventolin Hfa 1 - 2 puffs INH Q4HR PRN #1 inhaler 02/25/19 07/30/20 Inhaler] Amlodipine Besylate [Norvasc] 2.5 mg PO DAILY 07/30/20 07/30/20 Doxycycline Hyclate 100 mg PO BID #20 07/30/20 - Allergies Allergies/Adverse Reactions: Allergies Allergy/AdvReac Type Severity Reaction Status Date / Time aztreonam Allergy Unknown Dizziness Verified 06/04/22 12:48 carbamazepine Allergy Unknown Dizziness Verified 06/04/22 12:48 Cephalosporins Allergy Unknown Dizziness Verified 06/04/22 12:48 Penicillins Allergy Unknown Dizziness Verified 06/04/22 12:48 - Social History Does the pt smoke?: No Smoking Status: Former smoker Does the pt drink ETOH?: No Does the pt have substance abuse?: No - Immunizations Immunizations are current?: Yes - POLST Patient has POLST: Yes POLST Status: Full Code PD ED PE NORMAL - Vitals Vital signs reviewed: Yes - General General: Alert and oriented X 3, No acute distress - HEENT HEENT: PERRL, EOMI, Other (There is no nystagmus) - Neck Neck: Supple, no meningeal sign, No bony TTP - Cardiac Cardiac: RRR, No murmur - Respiratory Respiratory: No respiratory distress, Clear bilaterally - Abdomen Abdomen: Non tender - Extremities Extremities: No edema, No calf tenderness / cord - Neuro Neuro: Alert and oriented X 3, No motor deficit, No sensory deficit, Normal speech, Other (Normal ilfqlb-[id number]-aqey and ahgj-mx-morv testing, normal gait. NIH stroke scale of 0.) Eye Opening: Spontaneous Motor: Obeys Commands Verbal: Oriented GCS Score: 15 Results - Vitals Vitals: Vital Signs - 24 hr 06/04/22 12:44 Temperature 36.6 C Heart Rate 95 Respiratory 17 Rate Blood Pressure 165/82 H O2 Saturation 100 Oxygen O2 Source Room air - EKG (time done) 1313 EKG releavant findings:: EKG personally interpreted by author of this note. Relevant findings are: Rate: Rate (enter#) (74) Rhythm: NSR [place]: Normal QRS: Low voltage Ischemia: Normal ST segments Computer interpretation: Agree with computer - Labs Labs: Laboratory Tests 06/04/22 06/04/22 12:51 12:51 WBC 4.3 L RBC 3.85 L Hgb 10.6 L Hct 34.6 L MCV 89.9 MCH 27.5 MCHC 30.6 L RDW 17.5 H Plt Count 264 MPV 9.1 Neut # (Auto) 2.5 Lymph # (Auto) 1.0 L [place] # (Auto) 0.4 Eos # (Auto) 0.4 Baso # (Auto) 0.1 Absolute Nucleated RBC 0.00 Nucleated RBC % 0.0 Sodium 142 Potassium 4.0 Chloride 106 Carbon Dioxide 26 Anion Gap 10.0 BUN 16 Creatinine 1.3 H Estimated GFR (MDRD) 39 L Glucose 162 H Calcium 9.2 PD Medical Decision Making - ED course ED course: CBC showing chronic anemia, today's indices are actually slightly better than prior, she has a chronic mild lymphopenia. BMP reviewed with chronic renal insufficiency, unchanged from prior. 86-year-old woman who has chronic dizziness that she cannot describe. She describes it neither is vertigo, nor lightheadedness, nor disequilibrium. She has a sense of impending doom but a normal exam, EKG, and unremarkable blood work. She has had several emergency department visits for same, with really no specific findings except for sinus disease and chronic anemia. Departure - Departure Disposition: 01 Home, Self Care Clinical Impression: Dizziness Condition: Good Instructions: ED Dizziness [facility] Comments: There were no Significant abnormal findings on work-up today. Review of the chart shows that we have done extensive testing for the same problem in the past, no serious findings were noted. Follow-up with your primary care physician, next available appointment.. Return for new or worsening symptoms.
[2022-06-04 12:57] LABS: BASOPHILS # (AUTO) 0.1 10^3/uL (0.0-0.1); BASOPHILS % (AUTO) 1.4 %; EOSINOPHILS # (AUTO) 0.4 10^3/uL (0.0-0.7); HCT - HEMATOCRIT 34.6 % (37.0-47.0); HGB - HEMOGLOBIN 10.6 g/dL (12.0-16.0); LYMPHOCYTES % (AUTO) 23.5 %; MEAN CORPUSCULAR HEMOGLOBIN 27.5 pg (27.0-31.0); MEAN CORPUSCULAR HGB CONC 30.6 g/dL (32.0-36.0); MEAN CORPUSCULAR VOLUME 89.9 fL (81.0-99.0); MEAN PLATELET VOLUME 9.1 fL (7.9-10.8); MONOCYTES # (AUTO) 0.4 10^3/uL (0.0-1.0); MONOCYTES % (AUTO) 8.8 %; NEUTROPHILS # (AUTO) 2.5 10^3/uL (1.5-6.6); NEUTROPHILS % (AUTO) 57.1 %; PLT - PLATELET COUNT 264 10^3/uL (130-450); RED BLOOD COUNT 3.85 10^6/uL (4.20-5.40); RED CELL DISTRIBUTION WIDTH 17.5 % (12.0-15.0); WHITE BLOOD COUNT 4.3 x10^3/uL (4.8-10.8)
[2022-06-04 13:04] LABS: CALCIUM 9.2 mg/dL (8.5-10.3); CREATININE 1.3 mg/dL (0.4-1.0)
[2022-06-04 13:39] VITALS: BP 162/86
== END 2022-06-04 13:40 | disposition home or self-care (01) ==
LOC: ED 12:35
DX: R42 Dizziness and giddiness (principal); I10 Essential (primary) hypertension; Z87.891 Personal history of nicotine dependence
CPT/HCPCS: 36415; 80048; 85025; 93005; 99283; 99284

== ENCOUNTER 2022-06-25 05:59 | Outpatient (CLI) | payer MEDICARE, MEDICAID | END 2022-06-25 23:59 | disposition critical access hospital (66) | LOC: EMS 05:59 | DX: R06.00 Dyspnea, unspecified (principal); R68.2 Dry mouth, unspecified; F41.9 Anxiety disorder, unspecified | CPT/HCPCS: A0425; A0429 ==

== ENCOUNTER 2022-06-25 06:35 | Inpatient (IN) | payer MEDICARE, MEDICAID ==
[2022-06-25 07:41] LABS: BASOPHILS # (AUTO) 0.1 10^3/uL (0.0-0.1); BASOPHILS % (AUTO) 1.4 %; EOSINOPHILS # (AUTO) 0.4 10^3/uL (0.0-0.7); EOSINOPHILS % (AUTO) 8.5 %; HCT - HEMATOCRIT 32.3 % (37.0-47.0); HGB - HEMOGLOBIN 10.2 g/dL (12.0-16.0); LYMPHOCYTES % (AUTO) 21.1 %; MEAN CORPUSCULAR HEMOGLOBIN 28.5 pg (27.0-31.0); MEAN CORPUSCULAR HGB CONC 31.6 g/dL (32.0-36.0); MEAN CORPUSCULAR VOLUME 90.2 fL (81.0-99.0); MONOCYTES # (AUTO) 0.5 10^3/uL (0.0-1.0); MONOCYTES % (AUTO) 10.1 %; NEUTROPHILS # (AUTO) 2.9 10^3/uL (1.5-6.6); NEUTROPHILS % (AUTO) 58.5 %; PLT - PLATELET COUNT 241 10^3/uL (130-450); RED BLOOD COUNT 3.58 10^6/uL (4.20-5.40); RED CELL DISTRIBUTION WIDTH 15.7 % (12.0-15.0); WHITE BLOOD COUNT 4.9 x10^3/uL (4.8-10.8)
[2022-06-25 07:51] LABS: ALBUMIN 3.7 g/dL (3.2-5.5); BILIRUBIN,TOTAL 0.5 mg/dL (0.2-1.0); CREATININE 1.4 mg/dL (0.4-1.0); POTASSIUM 4.5 mmol/L (3.5-5.0); TOTAL PROTEIN 7.3 g/dL (6.7-8.2)
[2022-06-25] MEDS ORDERED: MECLIZINE 12.5 MG TABLET PO STA (08:20)
[2022-06-25] MEDS ORDERED: SODIUM CHLORIDE 0.9% 1,000 ML IV STA (08:20)
[2022-06-25] MEDS ORDERED: ONDANSETRON 4 MG/2 ML VIAL IVP STA (08:20)
[2022-06-25] MEDS ORDERED: ACETAMINOPHEN 325 MG TABLET PO STA (08:21)
--- NOTE | 2022-06-25 09:51 | XRAY Report ---
PROCEDURE: Chest 1 View X-Ray INDICATIONS: SOA TECHNIQUE: One view of the chest was acquired. COMPARISON: None. FINDINGS: Surgical changes and devices: None. Lungs and pleura: No pleural effusions or pneumothorax. Lungs are clear. Mediastinum: Mediastinal contours appear normal. Heart size is normal. Bones and chest wall: No suspicious bony lesions. Overlying soft tissues appear unremarkable. IMPRESSION: No acute cardiopulmonary process. The above findings are concordant with preliminary report. Reviewed by: Cookie Ferguson MD on 06/25/2022 9:49 AM PDT Approved by: Cookie Ferguson MD on 06/25/2022 9:49 AM PDT Station ID: [id number]
--- NOTE | 2022-06-25 10:18 | ED Physician Documentation ---
History of Present Illness - Stated complaint Stated Complaint: SOA - Chief complaint Chief Complaint: Resp - History obtained from History obtained from: Patient - Additonal information Additional information: Patient is an 86-year-old female presenting for evaluation of dizziness that she has difficult and describing. She reports having frequent episodes of this dizziness that does not feel different today. She also states that she feels like she is going to . She has had prior ER evaluations with similar presentations for greater than 1 year with unremarkable work-ups.She reportedly called EMS this morning feeling short of air that woke her up from her sleep. She was noted to have clear lung sounds, not hypoxic and speaking clearly.Reports feeling nauseous In addition to the dizziness. Review of Systems Constitutional: denies: Fever Cardiac: denies: Chest pain / pressure Respiratory: reports: Cough. denies: Dyspnea GI: reports: Nausea. 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 : None HEENT: Chronic sinusitis Psych: None Musculoskeletal: None Derm: None - Past Surgical History Past Surgical History: Yes General: Appendectomy, Colonoscopy /DAIRY LAB TECHNICIAN: Hysterectomy HEENT: Cataracts, Tonsil/Adenoidectomy - Present Medications Home Medications: Ambulatory Orders Medication Instructions Recorded Confirmed Levothyroxine [Synthroid] 25 mcg PO DAILY 11/02/13 07/30/20 Atorvastatin [Lipitor] 10 mg PO DAILY 04/06/14 07/30/20 Multivit-Min/FA/Lycopen/Lutein 1 tab PO DAILY 12/18/14 07/30/20 [Centrum Silver Tablet] Albuterol Sulf [Ventolin Hfa 1 - 2 puffs INH Q4HR PRN #1 inhaler 02/25/19 07/30/20 Inhaler] Amlodipine Besylate [Norvasc] 2.5 mg PO DAILY 07/30/20 07/30/20 Doxycycline Hyclate 100 mg PO BID #20 07/30/20 Meclizine HCl [Motion Sickness] 25 mg PO Q6H PRN #20 tablet 06/25/22 Ondansetron Odt [Zofran] 4 mg TL Q6H PRN #10 tablet 06/25/22 - Allergies Allergies/Adverse Reactions: Allergies Allergy/AdvReac Type Severity Reaction Status Date / Time aztreonam Allergy Unknown Dizziness Verified 06/25/22 06:52 carbamazepine Allergy Unknown Dizziness Verified 06/25/22 06:52 Cephalosporins Allergy Unknown Dizziness Verified 06/25/22 06:52 Penicillins Allergy Unknown Dizziness Verified 06/25/22 06:52 - Social History Does the pt smoke?: No Smoking Status: Former smoker Does the pt drink ETOH?: No Does the pt have substance abuse?: No - Immunizations Immunizations are current?: Yes - POLST Patient has POLST: Yes POLST Status: Full Code PD ED PE NORMAL - General General: Alert and oriented X 3, No acute distress, Well developed/nourished - HEENT HEENT: Atraumatic, PERRL, EOMI, Moist mucous membranes, Pharynx benign - Neck Neck: Supple, no meningeal sign - Cardiac Cardiac: RRR, No murmur - Respiratory Respiratory: No respiratory distress, Clear bilaterally - Abdomen Abdomen: Soft, Non tender, Non distended - Rectal Rectal: Other (Keysha RN as moving worker; External hemorrhoids or anal fissure, bright red blood on glove, No palpable masses) - Derm Derm: Warm and dry - Extremities Extremities: No edema - Neuro Neuro: Alert and oriented X 3, panel builder 2-12 intact, No motor deficit, No sensory deficit, Normal speech Results - Vitals Vitals: Vital Signs - 24 hr 06/25/22 06/25/22 06/25/22 06:47 07:50 09:00 Temperature 36.7 C Heart Rate 95 90 95 Respiratory 18 16 16 Rate Blood Pressure 170/96 H 172/84 H 162/7 H O2 Saturation 97 96 98 06/25/22 06/25/22 06/25/22 11:00 12:00 14:20 Temperature Heart Rate 100 102 H 102 H Respiratory 16 16 20 Rate Blood Pressure 154/79 H 156/78 H 136/80 H O2 Saturation 97 98 95 06/25/22 16:38 Temperature Heart Rate 83 Respiratory 16 Rate Blood Pressure 137/83 H O2 Saturation 95 Oxygen O2 Source Room air - EKG (time done) 0726 EKG releavant findings:: EKG personally interpreted by author of this note. Relevant findings are: Rate 92, normal sinus rhythm, no STEMI, QTc 410 Rate: Rate (enter#) (92) Rhythm: NSR Intervals: No: Prolonged QT Ischemia: No: ST elevation c/w ischemia - Labs Labs: Laboratory Tests 06/25/22 06/25/22 06/25/22 07:27 07:27 12:13 WBC 4.9 RBC 3.58 L Hgb 10.2 L 9.5 L Hct 32.3 L 29.9 L MCV 90.2 MCH 28.5 MCHC 31.6 L RDW 15.7 H Plt Count 241 MPV 9.0 Neut # (Auto) 2.9 Lymph # (Auto) 1.0 L [place] # (Auto) 0.5 Eos # (Auto) 0.4 Baso # (Auto) 0.1 Absolute Nucleated RBC 0.00 Nucleated RBC % 0.0 Sodium 134 L Potassium 4.5 Chloride 102 Carbon Dioxide 24 Anion Gap 8.0 BUN 20 Creatinine 1.4 H Estimated GFR (MDRD) 36 L Glucose 101 H Calcium 9.0 Total Bilirubin 0.5 AST 28 ALT 20 Alkaline Phosphatase 76 Total Protein 7.3 Albumin 3.7 Globulin 3.6 Albumin/Globulin Ratio 1.0 Blood Type Antibody Screen 06/25/22 14:09 WBC RBC Hgb Hct MCV MCH MCHC RDW Plt Count MPV Neut # (Auto) Lymph # (Auto) [place] # (Auto) Eos # (Auto) Baso # (Auto) Absolute Nucleated RBC Nucleated RBC % Sodium Potassium Chloride Carbon Dioxide Anion Gap BUN Creatinine Estimated GFR (MDRD) Glucose Calcium Total Bilirubin AST ALT Alkaline Phosphatase Total Protein Albumin Globulin Albumin/Globulin Ratio Blood Type B POSITIVE Antibody Screen NEGATIVE PD Medical Decision Making - ED course Complexity details: reviewed results, re-evaluated patient, d/w patient, d/w family ED course: Patient is an 86-year-old female. She is a very difficult historian and very vague with answers. Initially she is just stating that she feels like she is going to and feels unwell but is not able to describe it further. She is unable to tell me that she feels dizzy and has been feeling dizzy for a year but again is unable to give any further details. On review of her history she has had numerous ED visits with similar presentations of dizziness with unclear histories. She has had unremarkable work-ups in the past. Her exam here is nonfocal and vitals are reassuring. CBC, chemistry, EKG and chest x-ray were obtained and reviewed. She has mild anemia of 10.2. She was given a dose of meclizine, IV fluids and Zofran and reported feeling better and wanting to go home. Prior to discharge she got up to go to the bathroom and had a large bloody bowel movement that was witnessed by RN. When asked about this patient states that this has been going on intermittently for years.Eventually her daughter presented to the ER and also stated that patient has had similar episodes in the past and has had prior colonoscopies with unremarkable work- ups.CT angio was obtained which I reviewed which shows possible source of bleeding in the rectal anal region.Repeat hemoglobin is slightly lower at 9.5. I did consult with Dr. Rosas who is graciously seen the patient at the bedside and will admit for colonoscopy and possible hemorrhoidectomy. 1120 - Patient has been able to ambulate and was ready for discharge. However she went to the bathroom and had a large bloody bowel movement. When asked her how long this has been going on she states for a year. She is not able to give any reliable history regarding this. She does not appear to be on any blood thinners.We will hold discharge and reassess. 1315 - Discussed with Dr. Rosas. Reviewed presentation and CT findings.He will evaluate the patient. Likely plan for colonoscopy and history is suggestive of hemorrhoids as etiology so may need Surgery for her hemorrhoids. Departure - Departure Disposition: ED Place in Observation Clinical Impression: Vertigo, Lower GI bleed Condition: Stable
[2022-06-25] MEDS ORDERED: iohexoL-300 100 ML VIAL ONE (11:36)
[2022-06-25 12:19] LABS: HCT - HEMATOCRIT 29.9 % (37.0-47.0); HGB - HEMOGLOBIN 9.5 g/dL (12.0-16.0)
--- NOTE | 2022-06-25 12:39 | CT Report ---
PROCEDURE: ANGIO ABDOMEN/PELVIS W INDICATIONS: lower GI bleed CONTRAST: 100ml omni TECHNIQUE: After the administration of intravenous contrast, 2.5 mm thick sections acquired from the diaphragm t o the symphysis. 10 mm maximum-intensity projection (MIP) reformats were then acquired. For radiati on dose reduction, the following was used: automated exposure control, adjustment of mA and/or kV ac cording to patient size. COMPARISON: CT 03/24/2018 FINDINGS: Image quality: Good Lower chest: Basal scarring/atelectasis. Possible small component of airspace disease and tiny nodula rity at the costophrenic angles. Coronary calcifications. Normal heart size overall. Solid organs: The liver is unremarkable. Gallbladder is unremarkable. No pathologic dilation of the b iliary tree or pancreatic duct. No splenomegaly. No adrenal nodules. Bilateral cortical thinning and suspected extrarenal pelvis, no hydronephrosis. Vessels and lymph nodes: Atherosclerotic calcifications without abdominal aortic aneurysm. No patholo gic adenopathy by size criteria. The major mesenteric vessels are patent. Bowel and peritoneum: No evidence of small bowel obstruction. No pathologic ascites. There are coloni c diverticula. There are hyperdensities within the bowel lumen and diverticula. More hyperdensity is seen in lower rectum and rectoanal junction. Body wall: Unremarkable Pelvis: Small fat-containing inguinal hernias. Hysterectomy. Bladder is underdistended. Bones: No acute or suspicious osseous finding. Degenerative changes. IMPRESSION: Colonic diverticulosis. Bowel lumen and diverticular hyperdensities, most likely represents fecal ma terial. More intrinsic hyperdensity is seen in lower rectum and rectal anal junction. Unable to defin itively assess for extravasation on single phase images. In the setting of lower GI bleed, consider c olonoscopy correlation. Other findings as above. Reviewed by: Baron Magaña MD on 06/25/2022 12:38 PM PDT Approved by: Baron Magaña MD on 06/25/2022 12:38 PM PDT Station ID: [id number]
[2022-06-25] MEDS ORDERED: iohexoL-300 100 ML VIAL IVP ONE (15:28)
--- NOTE | 2022-06-25 16:46 | CONSULTATION NOTE ---
Referring Provider Name of Referring Provider:: Dr. Levi De Souza Consult Date: 06/25/22 Chief Complaint - Chief Complaint Chief Complaint: Dizziness but prior to discharge the patient had a large bloody bowel movem History of Present Illness - Admitted From Admitted From:: ED - History Obtained From Records Reviewed: Yes History obtained from: Primarily of the chart and from Dr. De Souza as the patient is an exceeding Exam Limitations: Patient has exceedingly poor memory - History of Present Illness HPI Comment/Other: This 86-year-old female came to the emergency department today for dizziness. She has been seen multiple times in the past for dizziness. Just prior to discharge she had to have a bowel movement which turned out to be a large bloody bowel movement. When I questioned her how long this has been going on she states its been going on for a year at this level and when I asked her why she is not anemic she tells me that she is. She states that she takes laxatives and enemas in order to have a bowel movement. She states that her last colonoscopy was in 2008 and it found "tumors."She states that her primary care physician is a woman doctor who is "one of the new ones." She denies any abdominal pain, nausea, or vomiting. History - Past Medical History Cardiovascular: reports: Hypertension, High cholesterol, Other Respiratory: reports: Asthma Neuro: reports: None Endocrine/Autoimmune: reports: HyPOthyroidism GI: reports: Chronic constipation, Hemorrhoids, Other BATCH MAKER: reports: None : reports: None HEENT: reports: Chronic sinusitis Psych: reports: None Musculoskeletal: reports: None Derm: reports: None MRSA Hx?: No - Past Surgical History General: reports: Appendectomy, Colonoscopy /BATCH MAKER: reports: Hysterectomy HEENT: reports: Cataracts, Tonsil/Adenoidectomy - Family & Social History Family History Comment/Other: patient denied any significant family history - Substance History Use: Uses substance without health or social issues: NONE - POLST Patient has POLST: Yes POLST Status: Full Code Meds/Allgy - Home Medications Home Medications: Ambulatory Orders Medication Instructions Recorded Confirmed Levothyroxine [Synthroid] 25 mcg PO DAILY 11/02/13 07/30/20 Atorvastatin [Lipitor] 10 mg PO DAILY 04/06/14 07/30/20 Multivit-Min/FA/Lycopen/Lutein 1 tab PO DAILY 12/18/14 07/30/20 [Centrum Silver Tablet] Albuterol Sulf [Ventolin Hfa 1 - 2 puffs INH Q4HR PRN #1 inhaler 02/25/19 07/30/20 Inhaler] Amlodipine Besylate [Norvasc] 2.5 mg PO DAILY 07/30/20 07/30/20 Doxycycline Hyclate 100 mg PO BID #20 07/30/20 Meclizine HCl [Motion Sickness] 25 mg PO Q6H PRN #20 tablet 06/25/22 Ondansetron Odt [Zofran] 4 mg TL Q6H PRN #10 tablet 06/25/22 - Allergies Allergies/Adverse Reactions: Allergies Allergy/AdvReac Type Severity Reaction Status Date / Time aztreonam Allergy Unknown Dizziness Verified 06/25/22 06:52 carbamazepine Allergy Unknown Dizziness Verified 06/25/22 06:52 Cephalosporins Allergy Unknown Dizziness Verified 06/25/22 06:52 Penicillins Allergy Unknown Dizziness Verified 06/25/22 06:52 Review of Systems - Other Findings Other Findings: Due to the patient's poor memory it is impossible to get a meaningful review of systems. Exam - Vital Signs Reviewed Vital Signs: Yes Vital Signs: Vital Signs x48h Pulse Resp BP Pulse Ox 06/25/22 14:20 102 H 20 136/80 H 95 06/25/22 12:00 102 H 16 156/78 H 98 06/25/22 11:00 100 16 154/79 H 97 06/25/22 09:00 95 16 162/7 H 98 - Physical Exam General Appearance: positive: No acute distress Eyes Bilateral: positive: No lid inflammation, Conjunctivae nml, No scleral icterus, Other (Pale sclera) ENT: positive: Dry mucous membranes, Other (Bad halitosis.) Neck: positive: Trachea midline. negative: Carotid bruit Respiratory: positive: Chest non-tender, No respiratory distress, Breath sounds nml (Somewhat decreased.) Cardiovascular: positive: Regular rate & rhythm, No murmur Abdomen: positive: Non-tender, No distention. negative: Tenderness, Guarding, Rebound, Hepatomegaly, Splenomegaly Rectal: positive: Other (Deferred until colonoscopy.) Skin: positive: Warm, Dry, Pallor Neurologic/Psychiatric: positive: Motor nml, Sensation nml, Mood/affect nml, Disoriented to time. negative: Disoriented to person, Disoriented to place Conclusion/Plan - Lab Results Lab results reviewed: Yes Noman Bones: 06/25/22 12:13 06/25/22 07:27 - Diagnostic Imaging Results Diagnostic Imaging Results: positive: Final report reviewed - Other Other Results/Comments: 86-year-old female with multiple presentations for dizziness who had a bloody bowel movement accompanied by anemia today in the presence of nursing. The patient states that she had a colonoscopy in the past that showed tumors but there is no way to verify this. My review of the hospital chart does not show any conclusive proof of a colonoscopy. CTA that was ordered today suggests that the source of the bleeding is at the anorectum which leads me to suspect hemorrhoids. As such I discussed possible hemorrhoidectomy with her. She is amenable to the colonoscopy as well as to the hemorrhoidectomy. I discussed the risks benefits alternatives including no procedure with her and she wishes to proceed with a colonoscopy with possible hemorrhoidectomy. As such her colon be mechanically prepped. I wish to thank Dr. Iglesia De Souza very much for the opportunity to participate in this patient's care. CPT 27805
[2022-06-25] MEDS ORDERED: SODIUM CHLORIDE FLUSH 0.9% 10 ML SYRINGE IVP PRN (16:54)
[2022-06-25] MEDS: DEXTROSE 5%-0.9% NACL 1,000 ML IV SCH (17:27)
[2022-06-25] MEDS: SODIUM CHLORIDE FLUSH 0.9% 10 ML SYRINGE IVP SCH (17:33)
[2022-06-25] MEDS: SODIUM/POTASSIUM/MAG SULFATES 354 ML PREP KIT PO SCH (17:33)
--- NOTE | 2022-06-25 18:02 | PHARMACY PROGRESS NOTE ---
- Best Possible Medication History Admit Date and Time: 06/25/22 2552 Processed by: Pharmacy Medication History completed: Yes Patient Interview: Pt unable to participate Secondary Source(s): Physician records, Pharmacy records, Insurance records As the person ultimately responsible for medication therapy, providers are able to order a medication from an existing home medication list in [facility] via the "Reconcile Routine" prior to Confirmation of that medication by linux support engineer. Such practice is discouraged except when the physician, in their clinical judgment, deems that a medical need exists for a medication without regard to previous use.
[2022-06-25] MEDS ORDERED: MIN OIL/DIMETHICON/COCONUT OIL 92 GM TUBE TOP PRN (18:53)
[2022-06-25] MEDS: ONDANSETRON 4 MG/2 ML VIAL IVP PRN (20:47)
[2022-06-26] MEDS: SODIUM CHLORIDE FLUSH 0.9% 10 ML SYRINGE IVP SCH ×3 (04:53→18:47)
[2022-06-26] MEDS: SODIUM/POTASSIUM/MAG SULFATES 354 ML PREP KIT PO SCH (04:56)
[2022-06-26] MEDS: ONDANSETRON 4 MG/2 ML VIAL IVP PRN (05:25)
[2022-06-26] MEDS: DEXTROSE 5%-0.9% NACL 1,000 ML IV SCH (06:48)
--- NOTE | 2022-06-26 14:12 | ANESTHESIA ---
Pre-Anesthesia VS, & Labs - Diagnosis GI bleed - Procedure colonoscopy, possible hemorrhoidectomy Vital Signs: Temp Pulse Resp BP Pulse Ox O2 Flow Rate 36.6 C 84 16 118/58 L 95 06/26/22 08:00 06/26/22 08:00 06/26/22 08:00 06/26/22 08:00 06/26/22 08:00 Height: 5 ft 3 in Weight (kg): 56 kg Body Mass Index: 21.9 BMI Classification: Normal - NPO >8 hours - Is Patient ?: No - Lab Results Current Lab Results: Laboratory Tests 06/25/22 14:09: Blood Type B POSITIVE, Antibody Screen NEGATIVE 06/25/22 12:13: Hgb 9.5 L, Hct 29.9 L 06/25/22 07:27: Sodium 134 L, Potassium 4.5, Chloride 102, Carbon Dioxide 24, Anion Gap 8.0, BUN 20, Creatinine 1.4 H, Estimated GFR (MDRD) 36 L, Glucose 101 H, Calcium 9.0, Total Bilirubin 0.5, AST 28, ALT 20, Alkaline Phosphatase 76, Total Protein 7.3, Albumin 3.7, Globulin 3.6, Albumin/Globulin Ratio 1.0 06/25/22 07:27: WBC 4.9, RBC 3.58 L, Hgb 10.2 L, Hct 32.3 L, MCV 90.2, MCH 28.5, MCHC 31.6 L, RDW 15.7 H, Plt Count 241, MPV 9.0, Neut # (Auto) 2.9, Lymph # (Auto) 1.0 L, Crane # (Auto) 0.5, Eos # (Auto) 0.4, Baso # (Auto) 0.1, Absolute Nucleated RBC 0.00, Nucleated RBC % 0.0 Fish Bones: 06/25/22 12:13 06/25/22 07:27 Home Medications and Allergies Home Medications: Ambulatory Orders Acetaminophen [Tylenol] 650 mg PO TID PRN 06/25/22 Beclomethasone Dipropionate [Qvar Redihaler (40 mcg)] 1 puffs INH BID 06/25/22 Cetirizine [ZyrTEC] 10 mg PO DAILY 06/25/22 Ferrous Sulfate [Feosol] 325 mg PO DAILY 06/25/22 Meclizine HCl [Motion Sickness] 25 mg PO BID PRN 06/25/22 Montelukast [Singulair] 10 mg PO DAILY 06/25/22 lisinopriL [Zestril] 5 mg PO DAILY 06/25/22 Active Medications Dextrose/Sodium Chloride (D5ns) 1,000 mls @ 75 mls/hr IV .[id number] [facility] Last Admin: 06/26/22 06:48 Dose: 75 mls/hr Mineral Oil (Min Oil/Dimethicon/Coconut Oil 92 Gm Tube) 1 applic TOP PRN PRN PRN Reason: Skin Care Ondansetron HCl (Ondansetron 4 Mg/2 Ml Vial) 4 mg IVP Q6HR PRN PRN Reason: Nausea / Vomiting Last Admin: 06/26/22 05:25 Dose: 4 mg Sodium Chloride (Sodium Chloride Flush 0.9% 10 Ml Syringe) 10 ml IVP PRN PRN PRN Reason: NEEDED PER PROVIDER ORDERS Sodium Chloride (Sodium Chloride Flush 0.9% 10 Ml Syringe) 10 ml IVP 01 00,0900,1700 [facility] Last Admin: 06/26/22 10:39 Dose: Not Given Levothyroxine [Synthroid] 25 mcg PO QDAC 11/02/13 Atorvastatin [Lipitor] 20 mg PO DAILY 04/06/14 Multivit-Min/FA/Lycopen/Lutein [Centrum Silver Tablet] 1 tab PO DAILY 12/18/14 Acetaminophen [Tylenol] 650 mg PO TID PRN 06/25/22 Beclomethasone Dipropionate [Qvar Redihaler (40 mcg)] 1 puffs INH BID 06/25/22 Cetirizine [ZyrTEC] 10 mg PO DAILY 06/25/22 Ferrous Sulfate [Feosol] 325 mg PO DAILY 06/25/22 Meclizine HCl [Motion Sickness] 25 mg PO BID PRN 06/25/22 Montelukast [Singulair] 10 mg PO DAILY 06/25/22 lisinopriL [Zestril] 5 mg PO DAILY 06/25/22 Allergies/Adverse Reactions: Allergies Allergy/AdvReac Type Severity Reaction Status Date / Time aztreonam Allergy Unknown Dizziness Verified 06/25/22 06:52 carbamazepine Allergy Unknown Dizziness Verified 06/25/22 06:52 Cephalosporins Allergy Unknown Dizziness Verified 06/25/22 06:52 Penicillins Allergy Unknown Dizziness Verified 06/25/22 06:52 Anes History & Medical History - Anesthetic History Anesthesia Complications: reports: No previous complications Family history of Anesthesia Complications: Denies Family history of Malignant Hyperthermia: Denies - Medical History Cardiovascular: reports: Hypertension, High cholesterol, Other Pulmonary: reports: Asthma Gastrointestinal: reports: Chronic constipation, Hemorrhoids, Other Urinary: reports: None Neuro: reports: None Musculoskeletal: reports: None Endocrine/Autoimmune: reports: HyPOthyroidism Blood Disorders: reports: None Skin: reports: None Smoking Status: Former smoker - Surgical History General: reports: Appendectomy, Colonoscopy Eyes Ears Nose Throat (EENT): reports: Cataracts, Tonsil/Adenoidectomy Gynecologic: reports: Hysterectomy Exam General: Alert, Oriented x3, Cooperative Dental: Other (edentulous upper) Mouth Openin Fingerbreadth Neck Mobility: Normal Mallampati classification: II Respiratory: Lungs clear Cardiovascular: Regular rate Plan Anesthesia Type: General, Total IV Consent for Procedure(s) Verified and Reviewed: Yes Code Status: Attempt Resuscitation ASA classification: 2-Mild systemic disease Is this case an emergency?: No
[2022-06-26] MEDS ORDERED: PROPOFOL 500 MG/50 ML 500 MG/50 ML VIAL ONE (14:41)
--- NOTE | 2022-06-26 20:12 | CONSULTATION NOTE ---
Referring Provider Name of Referring Provider:: Dr Rosas Consult Date: 06/26/22 Chief Complaint - Chief Complaint Chief Complaint: Confusion History of Present Illness - History Obtained From Records Reviewed: yes History obtained from: chart review and Dr Rosas - History of Present Illness HPI Comment/Other: This is an 86-year-old white female who lives alone. Her daughter lives close and checks on her. The patient was noted by nursing before the colonoscopy and conscious sedation, to have extreme confusion: she thought she was here for a hysterectomy, she did not know her own date of . After undergoing the colonoscopy today, Dr. Rosas learned of these descriptions from nursing and has asked the hospitalist team to comment on her confusion The patient cannot give me any recent history. She does describe living alone and that she believes she is independent. In reading the EMR she has many vi sits to the ER for complaints of dizziness and then has no specific complaints otherwise. There evidence of falls at home. It is not clear if she is compliant with medications at home. We are not sure how she gets her meals. RN said she spoken to the daughter by phone who also seemed equally is confused, per the RN Preeti, and she could not give a good history. History - Past Medical History Cardiovascular: reports: Hypertension, High cholesterol, Other Respiratory: reports: Asthma Neuro: reports: None Endocrine/Autoimmune: reports: HyPOthyroidism GI: reports: Chronic constipation, Hemorrhoids, Other MUFFLER INSTALLER: reports: None : reports: None HEENT: reports: Chronic sinusitis Psych: reports: None Musculoskeletal: reports: None Derm: reports: None MRSA Hx?: No - Past Surgical History General: reports: Appendectomy, Colonoscopy /MUFFLER INSTALLER: reports: Hysterectomy HEENT: reports: Cataracts, Tonsil/Adenoidectomy - Family & Social History Family History Comment/Other: patient denied any significant family history Living arrangement: At home Living Situation: Alone - Substance History Use: Uses substance without health or social issues: NONE - POLST Patient has POLST: Yes POLST Status: Full Code Meds/Allgy - Home Medications Home Medications: Ambulatory Orders Medication Instructions Recorded Confirmed Levothyroxine [Synthroid] 25 mcg PO QDAC 11/02/13 06/25/22 Atorvastatin [Lipitor] 20 mg PO DAILY 04/06/14 06/25/22 Multivit-Min/FA/Lycopen/Lutein 1 tab PO DAILY 12/18/14 06/25/22 [Centrum Silver Tablet] Albuterol Sulf [Ventolin Hfa 1 - 2 puffs INH Q4HR PRN #1 inhaler 02/25/1906/10 Inhaler] Acetaminophen [Tylenol] 650 mg PO TID PRN 06/25/22 06/25/22 Beclomethasone Dipropionate [Qvar 1 puffs INH BID 06/25/22 06/25/22 Redihaler (40 mcg)] Cetirizine [ZyrTEC] 10 mg PO DAILY 06/25/22 06/25/22 Ferrous Sulfate [Feosol] 325 mg PO DAILY 06/25/22 06/25/22 Meclizine HCl [Motion Sickness] 25 mg PO BID PRN 06/25/22 06/25/22 Meclizine HCl [Motion Sickness] 25 mg PO Q6H PRN #20 tablet 06/25/22 Montelukast [Singulair] 10 mg PO DAILY 06/25/22 06/25/22 Ondansetron Odt [Zofran] 4 mg TL Q6H PRN #10 tablet 06/25/22 lisinopriL [Zestril] 5 mg PO DAILY 06/25/22 06/25/22 - Allergies Allergies/Adverse Reactions: Allergies Allergy/AdvReac Type Severity Reaction Status Date / Time aztreonam Allergy Unknown Dizziness Verified 06/25/22 06:52 carbamazepine Allergy Unknown Dizziness Verified 06/25/22 06:52 Cephalosporins Allergy Unknown Dizziness Verified 06/25/22 06:52 Penicillins Allergy Unknown Dizziness Verified 06/25/22 06:52 Review of Systems - Gastrointestinal Gastrointestinal: reports: Black stools, Bloody stools - Neurological Neurological: reports: Dizziness - All Other Systems All Other Systems: reports: Other (No other detailed symptoms are available because of the patient's poor memory) Exam - Vital Signs Vital Signs: Vital Signs x48h Temp Pulse Resp BP Pulse Ox 06/26/22 16:00 36.6 C 93 18 153/64 H 94 Conclusion/Plan - Problem List (1) Confusion Conclusion/Plan: At first impression, the patient has dementia. In reviewing this EMR I can see she had a CT scan done in 2018 which showed chronic aging changes and no CT head since then. She had an Echocardiogram done in 2020 which showed a normal LVEF and mild pulm hypertension. The echo was ordered for evaluating shortness of breath and the patient was a smoker. She has had no B12 or folate levels, no thyroid lab evaluation in many years, to look for causes of reversible poor memory. More acutely, the patient has normal LFTs and a stable creatinine ruling out hepatic or uremic causes of confusion. She has a normal urinalysis ruling out UTI adding to her confusion. Recommendation: Social work consult to evaluate for discharge to a safe location Will order B12, folate, TSH, T4, head CT scan. Since she is now taking an oral diet and hydration well, we can stop the IV fluids, since she is confused and trying to pull out the IV (2) Fall at home Conclusion/Plan: As per review of EMR, she has had visits to ER after falls Recommendation: Obtain head CT Obtian PT and OT evaluations Order orthostatic vital sign checks every shift (3) Bleeding external hemorrhoids Conclusion/Plan: Plan: Management as per Dr. Rosas Restart her oral Iron replacement (4) Hypothyroidism Conclusion/Plan: Recommendation: Restart her home Synthroid dose Obtain TSH and T4 with a.m. labs, adjust dose if needed - Lab Results Lab results reviewed: Yes Noman Bones: 06/25/22 12:13 06/25/22 07:27 - Diagnostic Imaging Results Diagnostic Imaging Results: positive: Final report reviewed - Other Other Results/Comments: Attestation: The patient is expected to stay greater than 2 midnights and is expected to be discharged or transferred to another facility within 96 hours: Yes.
[2022-06-26] MEDS ORDERED: MECLIZINE 12.5 MG TABLET PO PRN (20:33)
--- NOTE | 2022-06-26 21:09 | CT Report ---
PROCEDURE: HEAD WO INDICATIONS: Confusion, freq falls at home TECHNIQUE: Noncontrast 4.5 mm thick angled axial sections acquired from the foramen magnum to the vertex. For r adiation dose reduction, the following was used: automated exposure control, adjustment of mA and/or kV according to patient size. COMPARISON: Head CT 07/30/2020. FINDINGS: Image quality: Excellent. CSF spaces: There is moderate cerebral volume loss with prominence of the ventricles and sulci. Basa l cisterns are patent. No extra-axial fluid collections. Brain: No intracranial hemorrhage, mass, or mass effect. Bellamy-white matter interface is preserved. T here are subcortical and periventricular white matter hypodensities consistent with mild to moderate chronic small vessel ischemic changes. Skull and face: Calvarium and visualized facial bones are intact, without suspicious lesions. Sinuses: Visualized sinuses demonstrate mucosal thickening within the ethmoid, sphenoid, and maxilla ry sinuses. Small air-fluid levels are demonstrated within the maxillary sinuses suggestive of acute sinusitis. Mastoid air cells are clear. IMPRESSION: 1. No acute intracranial abnormality. 2. Moderate cerebral volume loss and mild to moderate chronic white matter small vessel ischemic glaser ges. Reviewed by: Ruddy Rodas MD on 06/26/2022 9:08 PM PDT Approved by: Ruddy Rodas MD on 06/26/2022 9:08 PM PDT Station ID: [id number]
[2022-06-27] MEDS: SODIUM CHLORIDE FLUSH 0.9% 10 ML SYRINGE IVP SCH ×3 (00:28→17:34)
--- NOTE | 2022-06-27 01:14 | ANESTHESIA POST OP EVALUATION ---
Anesthesia Post Eval - Post Anesthesia Eval Vitals: Last Vital Signs Temp 36.5 C 06/27/22 00:00 Pulse 98 06/27/22 00:05 Resp 20 06/27/22 00:05 BP 156/79 H 06/27/22 00:00 Pulse Ox 96 06/27/22 00:05 O2 Flow Rate CV Function Including HR & BP: Stable Pain Control: Satisfactory Nausea & Vomiting: Negative Mental Status: Baseline Respiratory Status: Airway Patent Hydration Status: Satisfactory Anesthesia Complications: None
[2022-06-27 04:58] LABS: BASOPHILS # (AUTO) 0.1 10^3/uL (0.0-0.1); BASOPHILS % (AUTO) 0.6 %; EOSINOPHILS # (AUTO) 0.2 10^3/uL (0.0-0.7); EOSINOPHILS % (AUTO) 1.9 %; HCT - HEMATOCRIT 27.8 % (37.0-47.0); HGB - HEMOGLOBIN 8.7 g/dL (12.0-16.0); LYMPHOCYTES # (AUTO) 1.3 10^3/uL (1.5-3.5); LYMPHOCYTES % (AUTO) 12.3 %; MEAN CORPUSCULAR HEMOGLOBIN 28.8 pg (27.0-31.0); MEAN CORPUSCULAR HGB CONC 31.3 g/dL (32.0-36.0); MEAN CORPUSCULAR VOLUME 92.1 fL (81.0-99.0); MEAN PLATELET VOLUME 8.6 fL (7.9-10.8); MONOCYTES # (AUTO) 0.7 10^3/uL (0.0-1.0); MONOCYTES % (AUTO) 6.7 %; NEUTROPHILS # (AUTO) 8.4 10^3/uL (1.5-6.6); NEUTROPHILS % (AUTO) 78.1 %; PLT - PLATELET COUNT 192 10^3/uL (130-450); RED BLOOD COUNT 3.02 10^6/uL (4.20-5.40); RED CELL DISTRIBUTION WIDTH 16.1 % (12.0-15.0); WHITE BLOOD COUNT 10.8 x10^3/uL (4.8-10.8)
[2022-06-27 05:11] LABS: CALCIUM 8.3 mg/dL (8.5-10.3); CREATININE 1.4 mg/dL (0.4-1.0); MAGNESIUM 1.9 mg/dL (1.7-2.8); POTASSIUM 3.3 mmol/L (3.5-5.0)
[2022-06-27 05:18] LABS: CHOL/HDL RATIO 2.3 (<4.4); CHOLESTEROL 137 mg/dL; HDL CHOLESTEROL 60 mg/dL; LDL CHOLESTEROL,CALCULATED 64 mg/dL; LDL/HDL RATIO 1.1 (<4.4); TRIGLYCERIDES 65 mg/dL; VLDL CHOLESTEROL 13 mg/dL
[2022-06-27 05:31] LABS: THYROID STIMULATING HORMONE 2.37 uIU/mL (0.34-5.60)
[2022-06-27 05:33] LABS: FREE T4 (FREE THYROXINE) 0.86 ng/dL (0.58-1.64)
[2022-06-27] MEDS ORDERED: LEVOTHYROXINE 25 MCG TABLET PO SCH (07:00)
[2022-06-27] MEDS ORDERED: FERROUS SULFATE 325 MG TABLET PO SCH (09:00)
--- NOTE | 2022-06-27 14:27 | PROVIDER PROGRESS NOTE ---
Subjective - Subjective Pt reports feeling: No change Objective - Vital Signs/Intake & Output Vital Signs: Vital Signs x48h Temp Pulse Resp BP Pulse Ox 06/27/22 08:00 36.6 C 99 18 149/74 H 96 Intake & Output: Intake & Output 06/24/22 06/25/22 06/26/22 06/27/22 23:59 23:59 23:59 23:59 Intake Total 1520 1999 240 Balance 1520 1999 240 - Objective General Appearance: positive: No acute distress Respiratory: positive: No respiratory distress - Lab Results Fish Bones: 06/27/22 04:48 06/27/22 04:48 Other Labs: Lab Results x24hrs 06/27/22 06/27/22 06/27/22 Range/Units 04:48 04:48 04:48 WBC (4.8-10.8) x10^3/uL RBC (4.20-5.40) 10^6/uL Hgb (12.0-16.0) g/dL Hct (37.0-47.0) % MCV (81.0-99.0) fL MCH (27.0-31.0) pg MCHC (32.0-36.0) g/dL RDW (12.0-15.0) % Plt Count (130-450) 10^3/uL MPV (7.9-10.8) fL Neut # (Auto) (1.5-6.6) 10^3/uL Lymph # (Auto) (1.5-3.5) 10^3/uL [place] # (Auto) (0.0-1.0) 10^3/uL Eos # (Auto) (0.0-0.7) 10^3/uL Baso # (Auto) (0.0-0.1) 10^3/uL Absolute Nucleated RBC x10^3/uL Nucleated RBC % /100WBC Sodium 142 (135-145) mmol/L Potassium 3.3 L (3.5-5.0) mmol/L Chloride 110 (101-111) mmol/L Carbon Dioxide 24 (21-32) mmol/L Anion Gap 8.0 (6-13) BUN 17 (6-20) mg/dL Creatinine 1.4 H (0.4-1.0) mg/dL Estimated GFR (MDRD) 36 L (>89) Glucose 106 H (70-100) mg/dL Calcium 8.3 L (8.5-10.3) mg/dL Magnesium 1.9 (1.7-2.8) mg/dL Triglycerides 65 ( - 149) mg/dL Cholesterol 137 ( - 199) mg/dL LDL Cholesterol, Calc 64 ( - 129) mg/dL VLDL Cholesterol 13 mg/dL HDL Cholesterol 60 (60 - ) mg/dL LDL/HDL Ratio 1.1 (<4.4) Cholesterol/HDL Ratio 2.3 (<4.4) Vitamin B12 264 (180-914) pg/mL Folate 36.00 (5.90 - >24.8) ng/mL TSH 2.37 (0.34-5.60) uIU/mL Free T4 0.86 (0.58-1.64) ng/dL 06/27/22 Range/Units 04:48 WBC 10.8 (4.8-10.8) x10^3/uL RBC 3.02 L (4.20-5.40) 10^6/uL Hgb 8.7 L (12.0-16.0) g/dL Hct 27.8 L (37.0-47.0) % MCV 92.1 (81.0-99.0) fL MCH 28.8 (27.0-31.0) pg MCHC 31.3 L (32.0-36.0) g/dL RDW 16.1 H (12.0-15.0) % Plt Count 192 (130-450) 10^3/uL MPV 8.6 (7.9-10.8) fL Neut # (Auto) 8.4 H (1.5-6.6) 10^3/uL Lymph # (Auto) 1.3 L (1.5-3.5) 10^3/uL [place] # (Auto) 0.7 (0.0-1.0) 10^3/uL Eos # (Auto) 0.2 (0.0-0.7) 10^3/uL Baso # (Auto) 0.1 (0.0-0.1) 10^3/uL Absolute Nucleated RBC 0.00 x10^3/uL Nucleated RBC % 0.0 /100WBC Sodium (135-145) mmol/L Potassium (3.5-5.0) mmol/L Chloride (101-111) mmol/L Carbon Dioxide (21-32) mmol/L Anion Gap (6-13) BUN (6-20) mg/dL Creatinine (0.4-1.0) mg/dL Estimated GFR (MDRD) (>89) Glucose (70-100) mg/dL Calcium (8.5-10.3) mg/dL Magnesium (1.7-2.8) mg/dL Triglycerides ( - 149) mg/dL Cholesterol ( - 199) mg/dL LDL Cholesterol, Calc ( - 129) mg/dL VLDL Cholesterol mg/dL HDL Cholesterol (60 - ) mg/dL LDL/HDL Ratio (<4.4) Cholesterol/HDL Ratio (<4.4) Vitamin B12 (180-914) pg/mL Folate (5.90 - >24.8) ng/mL TSH (0.34-5.60) uIU/mL Free T4 (0.58-1.64) ng/dL Assessment/Plan - Problem List (1) Confusion Impression: The CT of the head did show moderate atrophy consistent with dementia Her labs all showed normal levels, no reversible areas to address doses or other changes I spoke to the patient's daughter Libby to get more details and I have learned that the family is planning on having the patient move in with them in the next 3 to 9 months. Mother is getting more forgetful. 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 Okay for discharge (2) Fall at home Impression: I spoke to the daughter Libby today who gave me details that the patient used to fall when she would encounter uneven sidewalks but no other locations (3) Bleeding external hemorrhoids Impression: Iron supplements orally have been restarted Other management as per Dr. Rosas (4) Hypothyroidism Impression: Continue present med, blood levels were in a good range I will be signing off the case. Thank you for allowing me to participate in the care of this patient.
--- NOTE | 2022-06-27 16:13 | DISCHARGE SUMMARY ---
"Discharge Summary Admit Date: 06/25/22 Discharge Date: 06/27/22 Discharging Provider: Michael Rosas MD Code Status: Attempt Resuscitation Condition at Discharge: Fair Discharge Disposition: 01 Home, Self Care - DIAGNOSES Admission Diagnoses: Blood per rectum Discharge Diagnoses with Status of Each Condition: Patient's source of blood per rectum is EXTENSIVE internal hemorrhoids. - HPI History of Present Illness: Patient has a long standing history of dizziness and some dementia as evidenced by multiple trips to our ED. She was in our ED when she had a bowel movement that was described as very bloody accompanied by a decrease in the patient's H&H. Colonoscopy performed yesterday showed extensive internal hemorrhoids circumferentially that were not amenable to surgical excision. I consulted Dr. Healy due to her exceedingly ppor memory and dementia when I found out that she was living alone. Of note the colonoscopy was NOT concerning for malignancy. - CONSULTS | PROCEDURES Consultations: Dr. Healy Procedures: Colonoscopy - ALLERGIES Allergies/Adverse Reactions: Allergies Allergy/AdvReac Type Severity Reaction Status Date / Time aztreonam Allergy Unknown Dizziness Verified 06/25/22 06:52 carbamazepine Allergy Unknown Dizziness Verified 06/25/22 06:52 Cephalosporins Allergy Unknown Dizziness Verified 06/25/22 06:52 Penicillins Allergy Unknown Dizziness Verified 06/25/22 06:52 - MEDICATIONS Home Medications: Ambulatory Orders Medication Instructions Recorded Confirmed Levothyroxine [Synthroid] 25 mcg PO QDAC 11/02/13 06/25/22 Atorvastatin [Lipitor] 20 mg PO DAILY 04/06/14 06/25/22 Multivit-Min/FA/Lycopen/Lutein 1 tab PO DAILY 12/18/14 06/25/22 [Centrum Silver Tablet] Albuterol Sulf [Ventolin Hfa 1 - 2 puffs INH Q4HR PRN #1 inhaler 02/25/19 06/25/22 Inhaler] Acetaminophen [Tylenol] 650 mg PO TID PRN 06/25/22 06/25/22 Beclomethasone Dipropionate [Qvar 1 puffs INH BID 06/25/22 06/25/22 Redihaler (40 mcg)] Cetirizine [ZyrTEC] 10 mg PO DAILY 06/25/22 06/25/22 Ferrous Sulfate [Feosol] 325 mg PO DAILY 06/25/22 06/25/22 Meclizine HCl [Motion Sickness] 25 mg PO BID PRN 06/25/22 06/25/22 Meclizine HCl [Motion Sickness] 25 mg PO Q6H PRN #20 tablet 06/25/22 Montelukast [Singulair] 10 mg PO DAILY 06/25/22 06/25/22 Ondansetron Odt [Zofran] 4 mg TL Q6H PRN #10 tablet 06/25/22 lisinopriL [Zestril] 5 mg PO DAILY 06/25/22 06/25/22 - PHYSICAL EXAM AT DISCHARGE General Appearance: positive: No acute distress Eyes Bilateral: positive: No lid inflammation, Conjunctivae nml ENT: positive: No signs of dehydration Neck: positive: Trachea midline Respiratory: positive: Chest non-tender, No respiratory distress, Breath sounds nml Cardiovascular: positive: Regular rate & rhythm Abdomen: positive: Non-tender Extremities: positive: Non-tender Neurologic/Psychiatric: positive: Motor nml, Sensation nml, Mood/affect nml, Disoriented to place, Disoriented to time - LABS Result Diagrams: 06/27/22 04:48 06/27/22 04:48 - FOLLOW UP Follow Up: With primary care physician in 7-10 days. - TIME SPENT Time Spent in Discharge (Minutes): 45"
--- NOTE | 2022-06-27 16:24 | Discharge Plan ---
Discharge Plan Problem Reviewed?: Yes Disposition: Home, Self Care Condition: Fair Prescriptions: Meclizine HCl [Motion Sickness] 25 mg PO Q6H PRN #20 tablet PRN Reason: Dizziness Ondansetron Odt [Zofran] 4 mg TL Q6H PRN #10 tablet PRN Reason: Nausea / Vomiting Diet: Regular Activity Restrictions: No Restrictions Shower Restrictions: No Driving Restrictions: Yes (Patient CANNOT safely drive,) Assistance Devices: Walker Weight Bearing: Full Weight Instruction Topics: ED Vertigo Unspecified Health Concerns: Dementia, poor memory, dizziness Plan of Treatment: Quality not quantity Additional Instructions or Follow Up instructions: I am sending prescriptions to help you with the dizziness and nausea to [facility] in [place]. I would recommend also having some close follow-up with your primary care provider given the duration of your symptoms of greater than a year. Return to the emergency department if you develop any new or worsening symptoms. Patient should keep her stools soft with the addition of prunes or prune juice. Avoid excessive wiping. Keep the area clean with soap and water. No Smoking: If you smoke, Please STOP! Call for help.
[2022-06-27] MEDS ORDERED: ACETAMINOPHEN 325 MG TABLET PO PRN (16:26)
[2022-06-27 19:00] VITALS: BP 157/73
[2022-06-27] MEDS ORDERED: BUDESONIDE 0.5 MG/2 ML NEB INH SCH (19:00)
[2022-06-28] MEDS ORDERED: MULTIVITAMIN W/MINERALS TABLET PO SCH (08:00)
[2022-06-28] MEDS ORDERED: MONTELUKAST 10 MG TABLET PO SCH (09:00)
[2022-06-28] MEDS ORDERED: ATORVASTATIN 10 MG TABLET PO SCH (09:00)
[2022-06-28] MEDS ORDERED: lisinopriL 5 MG TABLET PO SCH (09:00)
[2022-06-28] MEDS ORDERED: CETIRIZINE 10 MG TABLET PO SCH (09:00)
== END 2022-06-27 18:39 | disposition home or self-care (01) | DRG 395 ==
LOC: EDUNIT# → ED 06:35 → MS2 16:54 → OBSVTOIN 06-26 16:20
PROVIDERS: ADMIT Surgery; ATTEND Surgery
PROC: 0DBN8ZZ Excision of Sigmoid Colon, Via Natural or Artificial Opening Endoscopic (ICD-10-PCS; principal; 2022-06-26 14:30)
DX: K92.2 Gastrointestinal hemorrhage, unspecified (principal); R42 Dizziness and giddiness; K64.8 Other hemorrhoids; D64.9 Anemia, unspecified; F03.90 Unspecified dementia, unspecified severity, without behavioral disturbance, psychotic disturbance, mood disturbance, and anxiety; R41.3 Other amnesia; R41.0 Disorientation, unspecified; D12.5 Benign neoplasm of sigmoid colon; K57.30 Diverticulosis of large intestine without perforation or abscess without bleeding; I10 Essential (primary) hypertension; E03.9 Hypothyroidism, unspecified; J45.909 Unspecified asthma, uncomplicated; K59.09 Other constipation; Z87.891 Personal history of nicotine dependence; Z91.81 History of falling
CPT/HCPCS: 36415; 45380; 70450; 71045; 74174; 80048; 80053; 80061; 82607; 82746; 83735; 84439; 84443; 85014; 85018; 85025; 86850; 86900; 86901; 93005; 96374; 96376; 97165; 99285; A9270; Q9967; 83721

== ENCOUNTER 2022-07-03 08:44 | Outpatient (CLI) | payer MEDICARE, MEDICAID | END 2022-07-03 23:59 | disposition critical access hospital (66) | LOC: EMS 08:44 | DX: R51.9 Headache, unspecified (principal); R42 Dizziness and giddiness | CPT/HCPCS: A0425; A0429 ==

== ENCOUNTER 2022-07-03 09:04 | Emergency (ER) | payer MEDICARE, MEDICAID ==
--- NOTE | 2022-07-03 09:56 | CT Report ---
PROCEDURE: HEAD WO INDICATIONS: headache, states no injury TECHNIQUE: Noncontrast 4.5 mm thick angled axial sections acquired from the foramen magnum to the vertex. For r adiation dose reduction, the following was used: automated exposure control, adjustment of mA and/or kV according to patient size. COMPARISON: None. FINDINGS: Image quality: Excellent. CSF spaces: Basal cisterns are patent. No extra-axial fluid collections. Ventricles are normal in size and shape. Brain: No midline shift. No intracranial masses or hemorrhage. Bellamy-white matter interface is norm al. Skull and face: Calvarium and visualized facial bones are intact, without suspicious lesions. Sinuses: Circumferential mucosal thickening of the maxillary sinuses and an air-fluid level within th e sphenoid sinus. IMPRESSION: No acute intracranial process. Sinusitis of the maxillary and sphenoid sinuses. Reviewed by: Adam Gonzalez on 07/03/2022 8:54 AM ALEXANDRE Approved by: Adam Gonzalez on 07/03/2022 8:54 AM ORFAVIAN Station ID: [id number]
[2022-07-03] MEDS ORDERED: KETOROLAC 30 MG/ML VIAL IVP STA (09:59)
[2022-07-03] MEDS ORDERED: DROPERIDOL 5 MG/2 ML VIAL IVP STA (09:59)
--- NOTE | 2022-07-03 10:16 | ED Physician Documentation ---
PD HPI HEADACHE - Stated complaint Stated Complaint: SANDHU - Chief complaint Chief Complaint: Neuro - History obtained from History obtained from: Patient - History of Present Illness Pain level max: 8 Pain level now: 8 Location: Global Quality: Throbbing, Aching Associated symptoms: No: Fever, Stiff neck, Nausea, Vomiting, Weakness, Numbness, Syncope, Seizure, Eye pain, Vision changes Contributing factors: No: Anticoagulated, Possible carbon monoxide, Hypertension, Recent illness, Trauma Recently seen: Not recently seen - Additional information Additional information: 86-year-old female states that she developed a headache last night and has continued this morning. She states the headache is all over. She took aspirin without relief. No nausea or vomiting. No cough. No congestion. EMS was called and started an IV and gave her 100 cc of normal saline. Review of Systems Constitutional: denies: Fever, Chills Nose: denies: Congestion Throat: denies: Sore throat Respiratory: denies: Cough GI: denies: Abdominal Pain, Vomiting, Diarrhea Skin: denies: Rash Musculoskeletal: denies: Neck pain, Back pain Neurologic: denies: Focal weakness, Numbness, Confused, Head injury, LOC PD PAST MEDICAL HISTORY - Past Medical History Past Medical History: Yes Cardiovascular: Hypertension, High cholesterol, Other Respiratory: Asthma, COPD Neuro: None Endocrine/Autoimmune: HyPOthyroidism GI: GI bleed, Chronic constipation, Hemorrhoids, Other RD MANAGER: None : Renal insuffiency HEENT: Chronic sinusitis Psych: None Musculoskeletal: Osteoarthritis Derm: None - Past Surgical History Past Surgical History: Yes General: Appendectomy, Colonoscopy /RD MANAGER: Hysterectomy HEENT: Cataracts, Tonsil/Adenoidectomy - Present Medications Home Medications: Ambulatory Orders Medication Instructions Recorded Confirmed Levothyroxine [Synthroid] 25 mcg PO QDAC 11/02/13 07/03/22 Atorvastatin [Lipitor] 20 mg PO DAILY 04/06/14 07/03/22 Multivit-Min/FA/Lycopen/Lutein 1 tab PO DAILY 12/18/14 07/03/22 [Centrum Silver Tablet] Albuterol Sulf [Ventolin Hfa 1 - 2 puffs INH Q4HR PRN #1 inhaler 02/25/19 Inhaler] Acetaminophen [Tylenol] 650 mg PO TID PRN 06/25/22 07/03/22 Beclomethasone Dipropionate [Qvar 1 puffs INH BID 06/25/22 07/03/22 Redihaler (40 mcg)] Cetirizine [ZyrTEC] 10 mg PO DAILY 06/25/22 07/03/22 Ferrous Sulfate [Feosol] 325 mg PO DAILY 06/25/22 07/03/22 Meclizine HCl [Motion Sickness] 25 mg PO BID PRN 06/25/22 07/03/22 Montelukast [Singulair] 10 mg PO DAILY 06/25/22 07/03/22 lisinopriL [Zestril] 5 mg PO DAILY 06/25/22 07/03/22 - Allergies Allergies/Adverse Reactions: Allergies Allergy/AdvReac Type Severity Reaction Status Date / Time aztreonam Allergy Unknown Dizziness Verified 07/03/22 09:10 carbamazepine Allergy Unknown Dizziness Verified 07/03/22 09:10 Cephalosporins Allergy Unknown Dizziness Verified 07/03/22 09:10 Penicillins Allergy Unknown Dizziness Verified 07/03/22 09:10 - Social History Does the pt smoke?: No Smoking Status: Never smoker Does the pt drink ETOH?: No Does the pt have substance abuse?: No - Immunizations Immunizations are current?: Yes - POLST Patient has POLST: Yes POLST Status: Full Code PD ED PE NORMAL - Vitals Vital signs reviewed: Yes - General General: Alert and oriented X 3, No acute distress, Well developed/nourished - HEENT HEENT: Atraumatic, PERRL, Ears normal, Moist mucous membranes, Pharynx benign - Neck Neck: Supple, no meningeal sign, No bony TTP, No JVD, No bruit - Cardiac Cardiac: RRR, Strong equal pulses - Respiratory Respiratory: No respiratory distress, Clear bilaterally - Abdomen Abdomen: Soft, Non tender, Non distended - Back Back: No CVA TTP, No spinal TTP - Derm Derm: Warm and dry, No rash - Extremities Extremities: No edema, No calf tenderness / cord - Neuro Neuro: Alert and oriented X 3, pediatric physician assistant 2-12 intact, No motor deficit, No sensory deficit, Normal speech Eye Opening: Spontaneous Motor: Obeys Commands Verbal: Oriented GCS Score: 15 - Psych Psych: Normal mood, Normal affect Results - Vitals Vitals: Vital Signs - 24 hr 07/03/22 07/03/22 07/03/22 09:10 10:10 11:29 Temperature 36.7 C Heart Rate 95 101 H 108 H Respiratory 18 30 H 22 Rate Blood Pressure 199/81 H 198/95 H 191/99 H O2 Saturation 100 98 98 Oxygen O2 Source Room air - Rads (name of study) Head CT Relevant Findings:: Final report received, See rad report PD Medical Decision Making - ED course Complexity details: reviewed results, re-evaluated patient, considered differential, d/w patient ED course: Negative head CT. Headache resolved with Toradol and droperidol. Patient then complained of nasal congestion which resolved with Afrin. No fevers. No chills. No indication for antibiotics. No evidence of bacterial sinusitis. We will have her follow-up with her doctor for further care. No evidence of subarachnoid hemorrhage, tumor, mass. Patient counseled regarding signs and symptoms for which I believe and urgent re-evaluation would be necessary. Patient with good understanding of and agreement to plan and is comfortable going home at this time This document was made in part using voice recognition software. While efforts are made to proofread this document, sound alike and grammatical errors may occur. Departure - Departure Disposition: 01 Home, Self Care Clinical Impression: Nasal congestion Headache Qualifiers: Headache type: unspecified Headache chronicity pattern: acute headache Intractability: not intractable Qualified Code(s): R51.9 - Headache, unspecified Condition: Good Instructions: ED Cephalgia Unspecified Follow-Up: Your,doctor in 1 week [Other] Comments: Your headache has resolved today. You can use decongestants at home to help with your nasal congestion. Please follow-up with your doctor for further care. Return if you worsen. Your head CT does not show any acute abnormalities today. Discharge Date/Time: 07/03/22 12:27
[2022-07-03] MEDS ORDERED: OXYMETAZOLINE HCL 100 SPRAYS BOTTLE NAS STA (10:49)
[2022-07-03 11:32] VITALS: BP 191/99
== END 2022-07-03 12:27 | disposition home or self-care (01) ==
LOC: EDUNIT# → ED 09:04
DX: R51.9 Headache, unspecified (principal); R09.81 Nasal congestion; I10 Essential (primary) hypertension
CPT/HCPCS: 70450; 96374; 96375; 99283; 99284; A9270

== ENCOUNTER 2023-04-09 21:56 | Outpatient (CLI) | payer MEDICARE, MEDICAID | END 2023-04-09 21:57 | disposition EMS.NT | LOC: EMS 21:56 | DX: R06.02 Shortness of breath (principal) ==

== ENCOUNTER 2023-04-30 10:26 | Outpatient (CLI) | payer MEDICARE ==
[2023-04-30 10:38] LABS: BASOPHILS # (AUTO) 0.1 10^3/uL (0.0-0.1); BASOPHILS % (AUTO) 1.9 %; EOSINOPHILS # (AUTO) 0.7 10^3/uL (0.0-0.7); EOSINOPHILS % (AUTO) 13.8 %; HCT - HEMATOCRIT 37.6 % (37.0-47.0); HGB - HEMOGLOBIN 11.5 g/dL (12.0-16.0); LYMPHOCYTES # (AUTO) 0.9 10^3/uL (1.5-3.5); LYMPHOCYTES % (AUTO) 19.9 %; MEAN CORPUSCULAR HEMOGLOBIN 29.3 pg (27.0-31.0); MEAN CORPUSCULAR HGB CONC 30.6 g/dL (32.0-36.0); MEAN CORPUSCULAR VOLUME 95.7 fL (81.0-99.0); MEAN PLATELET VOLUME 8.7 fL (7.9-10.8); MONOCYTES # (AUTO) 0.3 10^3/uL (0.0-1.0); MONOCYTES % (AUTO) 6.8 %; NEUTROPHILS # (AUTO) 2.7 10^3/uL (1.5-6.6); NEUTROPHILS % (AUTO) 57.2 %; PLT - PLATELET COUNT 186 10^3/uL (130-450); RED BLOOD COUNT 3.93 10^6/uL (4.20-5.40); RED CELL DISTRIBUTION WIDTH 13.2 % (12.0-15.0); WHITE BLOOD COUNT 4.7 x10^3/uL (4.8-10.8)
[2023-04-30 10:54] LABS: ALBUMIN 3.9 g/dL (3.2-5.5); ALBUMIN/GLOBULIN RATIO 1.1 (1.0-2.2); BILIRUBIN,TOTAL 0.4 mg/dL (0.2-1.0); CREATININE 1.5 mg/dL (0.6-1.3); POTASSIUM 4.4 mmol/L (3.5-4.5); TOTAL PROTEIN 7.3 g/dL (6.4-8.9)
[2023-04-30 11:10] LABS: THYROID STIMULATING HORMONE 1.82 uIU/mL (0.34-5.60)
[2023-04-30 11:15] LABS: FERRITIN 25.3 ng/mL (11.0-306.8)
--- NOTE | 2023-04-30 12:01 | XRAY Report ---
PROCEDURE: Chest 2V INDICATIONS: DYSPNEA ON EXERTION TECHNIQUE: 2 views of the chest were acquired. COMPARISON: 06/25/2022. FINDINGS: Surgical changes and devices: None. Lungs and pleura: No pleural effusions or pneumothorax. Lungs are clear. Mediastinum: Mediastinal contours appear normal. Heart size is normal. Bones and chest wall: No suspicious bony lesions. Overlying soft tissues appear unremarkable. IMPRESSION: No acute cardiopulmonary process. Reviewed by: Edwin Brenner MD on 04/30/2023 12:00 PM PDT Approved by: Edwin rBenner MD on 04/30/2023 12:00 PM PDT Station ID: [id number]
== END 2023-04-30 10:27 | disposition home or self-care (01) ==
LOC: LAB 10:26
PROVIDERS: ATTEND Physician Assistant
DX: R06.09 Other forms of dyspnea (principal); D64.9 Anemia, unspecified
CPT/HCPCS: 36415; 80053; 82728; 83540; 83880; 84443; 84466; 85025

== ENCOUNTER 2023-05-04 20:06 | Outpatient (CLI) | payer MEDICARE | END 2023-05-04 20:07 | disposition critical access hospital (66) | LOC: EMS 20:06 | DX: R06.02 Shortness of breath (principal); R05.8 Other specified cough | CPT/HCPCS: A0425; A0427 ==

== ENCOUNTER 2023-05-04 20:25 | Emergency (ER) | payer MEDICARE ==
[2023-05-04] MEDS: predniSONE 20 MG TABLET PO STA (21:00)
[2023-05-04] MEDS: IPRATROPIUM/ALBUTEROL 3 ML NEB INH STA (21:05)
[2023-05-04 21:19] LABS: BASOPHILS # (AUTO) 0.1 10^3/uL (0.0-0.1); BASOPHILS % (AUTO) 1.3 %; EOSINOPHILS # (AUTO) 0.6 10^3/uL (0.0-0.7); EOSINOPHILS % (AUTO) 10.8 %; HCT - HEMATOCRIT 36.4 % (37.0-47.0); HGB - HEMOGLOBIN 11.1 g/dL (12.0-16.0); LYMPHOCYTES # (AUTO) 1.1 10^3/uL (1.5-3.5); LYMPHOCYTES % (AUTO) 19.7 %; MEAN CORPUSCULAR HEMOGLOBIN 29.1 pg (27.0-31.0); MEAN CORPUSCULAR HGB CONC 30.5 g/dL (32.0-36.0); MEAN CORPUSCULAR VOLUME 95.5 fL (81.0-99.0); MEAN PLATELET VOLUME 8.7 fL (7.9-10.8); MONOCYTES # (AUTO) 0.4 10^3/uL (0.0-1.0); NEUTROPHILS # (AUTO) 3.3 10^3/uL (1.5-6.6); PLT - PLATELET COUNT 226 10^3/uL (130-450); RED BLOOD COUNT 3.81 10^6/uL (4.20-5.40); RED CELL DISTRIBUTION WIDTH 13.1 % (12.0-15.0); WHITE BLOOD COUNT 5.5 x10^3/uL (4.8-10.8)
[2023-05-04 21:37] LABS: ALBUMIN 3.8 g/dL (3.2-5.5); ALBUMIN/GLOBULIN RATIO 1.1 (1.0-2.2); BILIRUBIN,TOTAL 0.3 mg/dL (0.2-1.0); CALCIUM 9.8 mg/dL (8.5-10.3); CREATININE 1.7 mg/dL (0.6-1.3); POTASSIUM 4.6 mmol/L (3.5-4.5); TOTAL PROTEIN 7.4 g/dL (6.4-8.9)
--- NOTE | 2023-05-04 22:03 | XRAY Report ---
PROCEDURE: Chest 1V INDICATIONS: SOA TECHNIQUE: One view of the chest was acquired. COMPARISON: 04/30/2023 FINDINGS: Surgical changes and devices: None. Lungs and pleura: No pleural effusions or pneumothorax. Lungs are clear. Mediastinum: Mediastinal contours appear normal. Heart size is normal. Bones and chest wall: No suspicious bony lesions. Overlying soft tissues appear unremarkable. IMPRESSION: No acute cardiopulmonary process. Reviewed by: Adam Gonzalez MD on 05/04/2023 10:01 PM PDT Approved by: Adam Gonzalez MD on 05/04/2023 10:01 PM PDT Station ID: [id number]
--- NOTE | 2023-05-04 22:10 | ED Physician Documentation ---
PD HPI DYSPNEA - Stated complaint Stated Complaint: SOA - Chief complaint Chief Complaint: Resp - History obtained from History obtained from: Patient, Family - Additional information Additional information: Patient is an 87-year-old female with a history of asthma and COPD, CKD, HTN, HLD presenting for evaluation of feeling short of breath today. Patient states she has significant nasal congestion and mucus and feels like she cannot breathe out of her nose. She has been using her inhaler.She denies fever. Reports cough has been productive of clear sputum which is not unusual for her. Denies abdominal symptoms. No leg pain or swelling. She has been using a spray in her nose but is unsure of the name of it to help with her breathing. Patient reports also feeling heartburn sensation today with feeling pressure in her chest. She also reports taking off her bra earlier today because it felt tight in her chest. Review of Systems Constitutional: denies: Fever Nose: reports: Congestion Cardiac: reports: Chest pain / pressure Respiratory: reports: Dyspnea, Cough GI: denies: Abdominal Pain, Vomiting : denies: Dysuria PD PAST MEDICAL HISTORY - Past Medical History Past Medical History: Yes Cardiovascular: Hypertension, High cholesterol, Other Respiratory: Asthma, COPD Neuro: None Endocrine/Autoimmune: HyPOthyroidism GI: GI bleed, Chronic constipation, Hemorrhoids, Other PRICING ASSOCIATE: None : Renal insuffiency HEENT: Chronic sinusitis Psych: None Musculoskeletal: Osteoarthritis Derm: None - Past Surgical History Past Surgical History: Yes General: Appendectomy, Colonoscopy /PRICING ASSOCIATE: Hysterectomy HEENT: Cataracts, Tonsil/Adenoidectomy - Present Medications Home Medications: Ambulatory Orders Medication Instructions Recorded Confirmed Levothyroxine [Synthroid] 25 mcg PO QDAC 11/02/13 05/05/23 Atorvastatin [Lipitor] 20 mg PO DAILY 04/06/14 05/05/23 Multivit-Min/FA/Lycopen/Lutein 1 tab PO DAILY 12/18/14 05/05/23 [Centrum Silver Tablet] Albuterol Sulf [Ventolin Hfa 1 - 2 puffs INH Q4HR PRN #1 inhaler 02/25/19 05/05/23 Inhaler] Beclomethasone Dipropionate [Qvar 1 puffs INH BID 06/25/22 05/05/23 Redihaler (40 mcg)] Ferrous Sulfate [Feosol] 325 mg PO DAILY 06/25/22 05/05/23 Meclizine HCl [Motion Sickness] 25 mg PO BID 06/25/22 05/05/23 Montelukast [Singulair] 10 mg PO DAILY 06/25/22 05/05/23 lisinopriL [Zestril] 5 mg PO DAILY 06/25/22 05/05/23 - Allergies Allergies/Adverse Reactions: Allergies Allergy/AdvReac Type Severity Reaction Status Date / Time aztreonam Allergy Unknown Dizziness Verified 05/04/23 20:29 carbamazepine Allergy Unknown Dizziness Verified 05/04/23 20:29 Cephalosporins Allergy Unknown Dizziness Verified 05/04/23 20:29 Penicillins Allergy Unknown Dizziness Verified 05/04/23 20:29 - Social History Does the pt smoke?: No Smoking Status: Never smoker Does the pt drink ETOH?: No Does the pt have substance abuse?: No - Immunizations Immunizations are current?: Yes - POLST Patient has POLST: Yes POLST Status: Full Code PD ED PE NORMAL - General General: Alert and oriented X 3, No acute distress, Well developed/nourished - HEENT HEENT: Atraumatic - Neck Neck: Supple, no meningeal sign - Cardiac Cardiac: RRR, Strong equal pulses - Respiratory Respiratory: No respiratory distress, Other (Expiratory wheezing bilaterally) - Abdomen Abdomen: Normal bowel sounds, Soft, Non tender, Non distended - Derm Derm: Warm and dry - Extremities Extremities: No edema, No calf tenderness / cord - Neuro Neuro: Normal speech Results - Vitals Vitals: Vital Signs - 24 hr 05/04/23 05/04/23 05/04/23 20:29 20:33 21:05 Temperature 36.8 C 36.8 C Heart Rate 99 90 107 H Respiratory 16 22 22 Rate Blood Pressure 167/88 H 167/88 H O2 Saturation 97 96 05/04/23 05/05/23 05/05/23 22:33 00:00 00:22 Temperature 36.6 C 36.8 C Heart Rate 98 96 103 H Respiratory 18 18 16 Rate Blood Pressure 152/79 H 160/80 H 180/88 H O2 Saturation 94 100 94 05/05/23 05/05/23 05/05/23 01:10 01:30 02:00 Temperature Heart Rate 90 96 87 Respiratory 16 17 16 Rate Blood Pressure 152/78 H 157/76 H 147/75 H O2 Saturation 94 95 95 05/05/23 05/05/23 05/05/23 02:30 03:00 03:30 Temperature Heart Rate 92 88 88 Respiratory 16 16 16 Rate Blood Pressure 160/82 H 157/88 H 162/88 H O2 Saturation 96 96 96 05/05/23 05/05/23 05/05/23 04:30 06:30 07:20 Temperature Heart Rate 86 77 73 Respiratory 16 16 18 Rate Blood Pressure 150/80 H 131/73 H 108/62 O2 Saturation 96 91 L 92 Oxygen O2 Source Room air - EKG (time done) 2144 EKG releavant findings:: EKG personally interpreted by author of this note. Relevant findings are: Rate 97, normal sinus rhythm, no STEMI, QTc 423 2115 EKG releavant findings:: EKG personally interpreted by author of this note. Relevant findings are: Rate 95, normal sinus rhythm, minimal ST elevations in inferior leads, will have RN repeat EKG as patient does not have symptoms to suggest a STEMI - Labs Labs: Laboratory Tests 05/04/23 05/04/23 05/04/23 20:55 21:15 21:15 WBC 5.5 RBC 3.81 L Hgb 11.1 L Hct 36.4 L MCV 95.5 MCH 29.1 MCHC 30.5 L RDW 13.1 Plt Count 226 MPV 8.7 Neut # (Auto) 3.3 Lymph # (Auto) 1.1 L Buchanan # (Auto) 0.4 Eos # (Auto) 0.6 Baso # (Auto) 0.1 Absolute Nucleated RBC 0.00 Nucleated RBC % 0.0 Sodium 139 Potassium 4.6 H Chloride 107 Carbon Dioxide 24 Anion Gap 8.0 BUN 27 H Creatinine 1.7 H Estimated GFR (MDRD) 28 L Glucose 148 H Calcium 9.8 Total Bilirubin 0.3 AST 27 ALT 22 Alkaline Phosphatase 93 Troponin I High Sens Total Protein 7.4 Albumin 3.8 Globulin 3.6 Albumin/Globulin Ratio 1.1 Lipase 49 Nasal Adenovirus (PCR) NOT DETECTED Nasal B. parapertussis DNA (PCR) NOT DETECTED Nasal Coronavir 229E PCR NOT DETECTED Nasal Coronavir HKU1 PCR NOT DETECTED Nasal Coronavir NL63 PCR NOT DETECTED Nasal Coronavir OC43 PCR NOT DETECTED Nasal Enterovir/Rhinovir PCR NOT DETECTED Nasal Influenza B PCR NOT DETECTED Nasal Influenza A PCR NOT DETECTED Nasal Parainfluen 1 PCR NOT DETECTED Nasal Parainfluen 2 PCR NOT DETECTED Nasal Parainfluen 3 PCR NOT DETECTED Nasal Parainfluen 4 PCR NOT DETECTED Nasal RSV (PCR) NOT DETECTED Nasal B.pertussis DNA PCR NOT DETECTED Nasal C.pneumoniae (PCR) NOT DETECTED Ha Human Metapneumo PCR NOT DETECTED Nasal M.pneumoniae (PCR) NOT DETECTED Nasal SARS-CoV-2 (PCR) NOT DETECTED 05/04/23 05/04/23 21:15 22:59 WBC RBC Hgb Hct MCV MCH MCHC RDW Plt Count MPV Neut # (Auto) Lymph # (Auto) Buchanan # (Auto) Eos # (Auto) Baso # (Auto) Absolute Nucleated RBC Nucleated RBC % Sodium Potassium Chloride Carbon Dioxide Anion Gap BUN Creatinine Estimated GFR (MDRD) Glucose Calcium Total Bilirubin AST ALT Alkaline Phosphatase Troponin I High Sens 92.4 H* 704.8 H* Total Protein Albumin Globulin Albumin/Globulin Ratio Lipase Nasal Adenovirus (PCR) Nasal B. parapertussis DNA (PCR) Nasal Coronavir 229E PCR Nasal Coronavir HKU1 PCR Nasal Coronavir NL63 PCR Nasal Coronavir OC43 PCR Nasal Enterovir/Rhinovir PCR Nasal Influenza B PCR Nasal Influenza A PCR Nasal Parainfluen 1 PCR Nasal Parainfluen 2 PCR Nasal Parainfluen 3 PCR Nasal Parainfluen 4 PCR Nasal RSV (PCR) Nasal B.pertussis DNA PCR Nasal C.pneumoniae (PCR) Ha Human Metapneumo PCR Nasal M.pneumoniae (PCR) Nasal SARS-CoV-2 (PCR) PD Medical Decision Making - ED course Complexity details: reviewed results, re-evaluated patient, d/w patient, d/w family ED course: Patient is an 87-year-old female with a history of asthma and chronic kidney disease presenting for evaluation of feeling nasal congestion today as well as episode of heartburn and tightness across the chest. Did have wheezing for EMS and was given a neb treatment and round. Mild wheezing here so was given additional neb treatment and prednisone. On further discussion though patient does report having episode of heartburn as well as some tightness in the chest earlier today. EKG was obtained and initial EKG had mild ST elevations in the inferior leads although this did not appear to meet STEMI criteria as were also not significant reciprocal changes. A repeat was quickly obtained and did not show these changes and did not appear to have any ST segment elevation or depression. CBC, chemistry, troponin were obtained and reviewed. Initial high sensitive troponin is 91. Repeat high-sensitivity troponin is in the 700s. This is concerning for an NSTEMI. Patient has no chest pain here. Given aspirin and started on Lovenox.Chest x-ray which I reviewed is negative for pneumonia. Discussed with cardiology at [facility] to will consult on the patient. [facility] busy throughout the evening and has been unable to return our call and we have additionally reached out to other [facility]. 0120AM - D/W Dr. Ahsan Doan - [facility] Cardiology. Agrees with plan for transfer. Will consult on patient. Agrees with plan for Lovenox.Request Admission to medicine service. - Critical Care Time(min): 48 Time Includes: Direct patient care, Review records, Reassess patient, Document care, Medical consult Departure - Departure Disposition: 02 Transfer Acute Care Hosp Clinical Impression: NSTEMI (non-ST elevated myocardial infarction) Forms: PCP List
[2023-05-04 22:11] LABS: B. PARAPERTUSSIS- RESP PCR PAN NOT DETECTED; B. PERTUSSIS- RESP PCR PANEL NOT DETECTED; C. PNEUMONIAE- RESP PCR PANEL NOT DETECTED; CORONAVIRUS 229E-RESP PCR NOT DETECTED; CORONAVIRUS HKU1-RESP PCR NOT DETECTED; CORONAVIRUS NL63-RESP PCR NOT DETECTED; CORONAVIRUS OC43-RESP PCR NOT DETECTED; HUMAN METAPNEUMOVIRUS NOT DETECTED; INFLUENZA A- RESP PCR PANEL NOT DETECTED; INFLUENZA B - RESP PCR PANEL NOT DETECTED; M. PNEUMONIAE- RESP PCR PANEL NOT DETECTED; PARAINFLUENZA VIRUS 1 NOT DETECTED; PARAINFLUENZA VIRUS 2 NOT DETECTED; PARAINFLUENZA VIRUS 3 NOT DETECTED; PARAINFLUENZA VIRUS 4 NOT DETECTED; RHINOVIRUS/ENTEROVIRUS NOT DETECTED; RSV- RESP PCR PANEL NOT DETECTED; SARS-CoV-2 -RESP PCR PANEL NOT DETECTED
[2023-05-05] MEDS: ASPIRIN CHEW 81 MG TABLET PO STA (00:18)
[2023-05-05] MEDS: ENOXAPARIN 60 MG/0.6 ML SYRINGE SUBQ STA (00:18)
[2023-05-05] MEDS ORDERED: ONDANSETRON 4 MG/2 ML VIAL IVP PRN (05:18)
[2023-05-05] MEDS ORDERED: ACETAMINOPHEN 500 MG TABLET PO PRN (05:18)
[2023-05-05] MEDS: PANTOPRAZOLE 40 MG TABLET PO SCH (08:01)
[2023-05-05] MEDS: ASPIRIN CHEW 81 MG TABLET PO SCH (09:08)
[2023-05-05] MEDS: ENOXAPARIN 60 MG/0.6 ML SYRINGE SUBQ SCH (09:08)
--- NOTE | 2023-05-05 09:08 | PHARMACY PROGRESS NOTE ---
- Best Possible Medication History Admit Date and Time: Processed by: Nursing Medications reviewed in ED?: Yes Medication History completed: Yes Patient Interview: Completed Secondary Source(s): Insurance records As the person ultimately responsible for medication therapy, providers are able to order a medication from an existing home medication list in [facility] via the "Reconcile Routine" prior to Confirmation of that medication by ground support agent. Such practice is discouraged except when the physician, in their clinical judgment, deems that a medical need exists for a medication without regard to previous use.
[2023-05-05] MEDS: METOPROLOL 5 MG/5 ML VIAL IVP STA (09:43)
[2023-05-05] MEDS: MORPHINE 2 MG/ML CARPUJECT IVP STA (09:46)
[2023-05-05] MEDS: IPRATROPIUM/ALBUTEROL 3 ML NEB INH STA (09:47)
--- NOTE | 2023-05-05 09:54 | ED Physician Documentation ---
ED Addendum - Addendum Addendum: 05/05/23 09:37 The patient was not having any chest pain but she did notice an increase in her wheezing and dyspnea related to her COPD. She states she uses nebulizer at home several times daily fairly regularly "as needed" but at least 2 or 3 daily. She does not Gaffney use home oxygen.. We can give a DuoNeb at this time. She had received nebulizers overnight. Her monitor showing sinus tachycardia. It appears regular. I presume this is related to her trouble breathing and some anxiety. We can give some more steroid to help with that component of it. The DuoNeb right now and I will schedule some regularly. Also given morphine 2 mg IV and metoprolol 5 mg IV. She does normally take blood pressure medicine at home. Her blood pressure and heart rate are elevated at this time and would not be good for any heart injury that is occurring so we will work on those as well. 05/05/23 10:14 The patient's breathing improved quite a bit with a DuoNeb. Heart rate came down to more normal level. The morphine 2 mg and metoprolol seem to help as well. She is more relaxed. However EKG does appear different. It had shown some changes on her telemetry so spurred a repeat EKG and quite distinctly ST elevations in 2 3 and F consistent with now a STEMI pattern more so than the prior EKG. We will switch to a STEMI protocol and call the ER over at [facility]. She had received Lovenox. I will ask if they want heparin. She had received aspirin and beta-janee. Will fluffed out the medicines for the acute [place] as needed. Diagnoses: 1. Chest pain, ST elevation [place] 2. Acute exacerbation of emphysema 3. Dyspnea Disposition: The patient is transferred in stable condition to acute care facility.
[2023-05-05 10:39] VITALS: BP 137/77; O2SAT 99
[2023-05-05] MEDS ORDERED: ATORVASTATIN 40 MG TABLET PO SCH (21:00)
== END 2023-05-05 11:03 | disposition short-term general hospital (02) ==
LOC: EDUNIT# → ED 20:25
DX: I21.4 Non-ST elevation (NSTEMI) myocardial infarction (principal); J44.9 Chronic obstructive pulmonary disease, unspecified; I12.9 Hypertensive chronic kidney disease with stage 1 through stage 4 chronic kidney disease, or unspecified chronic kidney disease; N18.9 Chronic kidney disease, unspecified; E78.5 Hyperlipidemia, unspecified; E03.9 Hypothyroidism, unspecified
CPT/HCPCS: 36415; 71045; 80053; 83690; 84484; 85025; 87633; 93005; 94640; 94664; 96372; 96374; 96375; 99285; 99291; A9270; J1650; J7512

== ENCOUNTER 2023-05-05 10:42 | Outpatient (CLI) | payer MEDICARE | END 2023-05-05 23:59 | disposition short-term general hospital (02) | LOC: EMS 10:42 | DX: I21.3 ST elevation (STEMI) myocardial infarction of unspecified site (principal) ==

== ENCOUNTER 2023-05-26 14:28 | Outpatient (CLI) | payer MEDICARE, MEDICAID ==
--- NOTE | 2023-05-26 16:09 | Ultrasound Report ---
Renal (Retroperitoneal) HISTORY: CKD COMPARISON: None. TECHNIQUE: Ultrasound of the kidneys was performed. FINDINGS: Right Kidney: 6.9 cm in length increased echogenicity. No hydronephrosis or renal stone. Left Kidney: 8.0 cm in length increased echogenicity. No hydronephrosis or renal stone. Urinary Bladder:Prevoid volume of 80 mL. Uterine jet is seen on the right. Ureteral jet on the left i s not seen. Additional Findings: IMPRESSION: Echogenic renal parenchyma, consistent with medical renal disease. Reviewed by: Radha Carlisle MD on 05/26/2023 4:08 PM PDT Approved by: Radha Carlisle MD on 05/26/2023 4:08 PM PDT Station ID: [id number]
== END 2023-05-26 14:29 | disposition home or self-care (01) ==
LOC: DI 14:28
PROVIDERS: ATTEND Physician Assistant Medical
DX: N18.32 Chronic kidney disease, stage 3b (principal)

== ENCOUNTER 2023-06-08 22:06 | Emergency (ER) | payer MEDICARE ==
--- NOTE | 2023-06-08 23:05 | ED Physician Documentation ---
History of Present Illness - Stated complaint Stated Complaint: DIZZY/LOW BP - Chief complaint Chief Complaint: General - History obtained from History obtained from: Patient, Family - Additonal information Additional information: Patient is an 87-year-old female with history of COPD, Recent transfer for NSTEMI, presenting for evaluation of feeling weakness today. Patient states she has been feeling weak and dizzy all day. She denies room spinning or vertigo sensation. She says that her ears both feel clogged and she generally just feels unwell. Denies any chest pain, heartburn, shortness of air which her symptoms she was experiencing last month when she was found to have an NSTEMI and transferred to [facility]. Per the daughter who is at the bedside there was no cardiac catheterization or stents done. They treated her with medications. She is currently on aspirin.No vomiting or diarrhea. No falls or headache.Daughter was concerned at home when she took her blood pressure as initial readings were 125 systolic and then there was a systolic reading of 120.Patient reports that she has been able to ambulate today without issue. Review of Systems Constitutional: denies: Fever Cardiac: denies: Chest pain / pressure Respiratory: denies: Dyspnea GI: denies: Abdominal Pain : reports: Other (Urgency). denies: Dysuria Neurologic: reports: Generalized weakness. 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 : Renal insuffiency HEENT: Chronic sinusitis Psych: None Musculoskeletal: Osteoarthritis Derm: None - Past Surgical History Past Surgical History: Yes General: Appendectomy, Colonoscopy /FREEZING MACHINE OPERATOR: Hysterectomy HEENT: Cataracts, Tonsil/Adenoidectomy - Present Medications Home Medications: Ambulatory Orders Medication Instructions Recorded Confirmed Levothyroxine [Synthroid] 25 mcg PO QDAC 11/02/13 06/09/23 Albuterol Sulf [Ventolin Hfa 1 - 2 puffs INH Q4HR PRN #1 inhaler 02/25/19 06/09/23 Inhaler] Beclomethasone Dipropionate [Qvar 1 puffs INH BID 06/25/22 06/09/23 Redihaler (40 mcg)] Ferrous Sulfate [Feosol] 325 mg PO DAILY 06/25/22 06/09/23 Meclizine HCl [Motion Sickness] 25 mg PO BID PRN 06/25/22 06/09/23 Montelukast [Singulair] 10 mg PO DAILY 06/25/22 06/09/23 lisinopriL [Zestril] 5 mg PO DAILY 06/25/22 06/09/23 Albuterol 2.5 mg INH Q4H PRN 06/09/23 06/09/23 Aspirin Chewable [St Tashi 81 mg PO DAILY 06/09/23 06/09/23 Aspirin] Atorvastatin Calcium 40 mg PO DAILY 06/09/23 06/09/23 Carbamide Peroxide Otic Drop 10 drops EACHEAR DAILY PRN #15 ml 06/09/23 [Debrox Otic Drops] Clopidogrel [Plavix] 75 mg PO DAILY 06/09/23 06/09/23 Metoprolol Tartrate [Lopressor] 25 mg PO BID 06/09/23 06/09/23 Multivit-Minerals/Folic Acid 200 mcg PO DAILY 06/09/23 06/09/23 [Multivitamin Gummies] Sulfamethox/Trimeth 800/160 1 each PO BID 5 Days #10 tablet 06/09/23 [Bactrim Ds 800/160] - Allergies Allergies/Adverse Reactions: Allergies Allergy/AdvReac Type Severity Reaction Status Date / Time aztreonam Allergy Unknown Dizziness Verified 06/08/23 22:31 carbamazepine Allergy Unknown Dizziness Verified 06/08/23 22:31 Cephalosporins Allergy Unknown Dizziness Verified 06/08/23 22:31 Penicillins Allergy Unknown Dizziness Verified 06/08/23 22:31 - Social History Does the pt smoke?: No Smoking Status: Never smoker Does the pt drink ETOH?: No Does the pt have substance abuse?: No - Immunizations Immunizations are current?: Yes - POLST Patient has POLST: Yes POLST Status: Full Code PD ED PE NORMAL - General General: Alert and oriented X 3, No acute distress, Well developed/nourished - HEENT HEENT: Atraumatic, Moist mucous membranes, Pharynx benign, Other (Right cerumen impaction, significant cerumen in left ear canal but able to visualize TM which appears clear.) - Neck Neck: Supple, no meningeal sign - Cardiac Cardiac: RRR, Strong equal pulses - Respiratory Respiratory: No respiratory distress, Clear bilaterally - Abdomen Abdomen: Soft, Non tender - Derm Derm: Warm and dry - Extremities Extremities: No edema - Neuro Neuro: Alert and oriented X 3, crushing machine operator 2-12 intact, No motor deficit, No sensory deficit, Normal speech, Other (Normal unassisted gait) Results - Vitals Vitals: Vital Signs - 24 hr 06/08/23 06/08/23 06/09/23 22:31 23:00 00:00 Temperature 36.6 C Heart Rate 110 H 81 94 Respiratory 16 16 17 Rate Blood Pressure 141/66 H 130/62 135/70 H O2 Saturation 98 96 98 06/09/23 00:29 Temperature Heart Rate 82 Respiratory 18 Rate Blood Pressure 138/73 H O2 Saturation 98 Oxygen O2 Source Room air - EKG (time done) 2250 EKG releavant findings:: EKG personally interpreted by author of this note. Relevant findings are: Rate 86, normal sinus rhythm, no STEMI, QTc 399, motion artifact in leads V3 and V6 - Labs Labs: Laboratory Tests 06/08/23 06/08/23 06/08/23 22:32 22:56 22:56 WBC 6.2 RBC 3.18 L Hgb 9.2 L Hct 29.8 L MCV 93.7 MCH 28.9 MCHC 30.9 L RDW 14.3 Plt Count 228 MPV 8.7 Neut # (Auto) 3.9 Lymph # (Auto) 1.4 L [place] # (Auto) 0.6 Eos # (Auto) 0.3 Baso # (Auto) 0.1 Absolute Nucleated RBC 0.00 Nucleated RBC % 0.0 Sodium 136 Potassium 4.4 Chloride 105 Carbon Dioxide 21 Anion Gap 10.0 BUN 32 H Creatinine 1.9 H Estimated GFR (MDRD) 25 L Glucose 140 H Calcium 9.7 Magnesium 1.8 Total Bilirubin 0.4 AST 22 ALT 16 Alkaline Phosphatase 72 Total Protein 7.0 Albumin 4.2 Globulin 2.8 Albumin/Globulin Ratio 1.5 Lipase 77 Urine Color YELLOW Urine Clarity CLEAR Urine pH 5.5 Ur Specific [place] 1.010 Urine Protein NEGATIVE Urine Glucose (UA) NEGATIVE Urine Ketones NEGATIVE Urine Occult Blood NEGATIVE Urine Nitrite NEGATIVE Urine Bilirubin NEGATIVE Urine Urobilinogen 0.2 (NORMAL) Ur Leukocyte Esterase SMALL H Urine RBC 0-5 Urine WBC 11-25 H Urine WBC Clumps PRESENT Ur Squamous Epith Cells RARE Squamous Urine Bacteria Many H Ur Microscopic Review INDICATED Urine Culture Comments INDICATED PD Medical Decision Making - ED course Complexity details: reviewed results, re-evaluated patient, d/w patient, d/w family ED course: Patient is an 87-year-old female with a history of COPD and NSTEMI presenting for evaluation of feeling lightheaded today with concerns for low blood pressure at home. Blood pressure here is stable. Normal neuroexam and patient is ambulatory. Does not have symptoms to suggest stroke including posterior circulation symptoms. CBC, chemistry, urinalysis were obtained and reviewed.Baseline anemia which is unchanged, chronic kidney disease which is unchanged. Urinalysis is concerning for infection and patient has reported some urgency today. She is tolerating p.o. intake. No abdominal pain. Given allergies to cephalosporins and penicillins we will initiate treatment with Bactrim.EKG reviewed. No symptoms to suggest acute coronary syndrome. Patient is feeling better here and counseled on treatment plan. She has been ambulatory to the bathroom and back here. Patient and daughter advised on strict return precautions for any worsening symptoms. Departure - Departure Disposition: 01 Home, Self Care Clinical Impression: UTI (urinary tract infection), Chronic anemia, Chronic kidney disease, Cerumen impaction Condition: Stable Instructions: ED UTI Cystitis Female, ED Earwax Removal Prescriptions: Sulfamethox/Trimeth 800/160 [Bactrim Ds 800/160] 1 each PO BID 5 Days #10 tablet Carbamide Peroxide Otic Drop [Debrox Otic Drops] 10 drops EACHEAR DAILY PRN #15 ml PRN Reason: Per Physician Order Comments: Your testing today shows that You have a urine infection. Your vital signs have been stable here. You do have baseline anemia and chronic kidney disease which is not largely changed from your usual labs. I have sent a prescription for an antibiotic as well as eardrops To soften earwax To [facility] in [place]. I would recommend follow-up with your primary care doctor this week for recheck or to the walk-in clinic. You may need to have your ears irrigated once the wax becomes soft. Return to the ER with any worsening. Forms: PCP List Discharge Date/Time: 06/09/23 00:40
[2023-06-08 23:09] LABS: BASOPHILS # (AUTO) 0.1 10^3/uL (0.0-0.1); BASOPHILS % (AUTO) 1.4 %; EOSINOPHILS # (AUTO) 0.3 10^3/uL (0.0-0.7); EOSINOPHILS % (AUTO) 4.2 %; HCT - HEMATOCRIT 29.8 % (37.0-47.0); HGB - HEMOGLOBIN 9.2 g/dL (12.0-16.0); LYMPHOCYTES # (AUTO) 1.4 10^3/uL (1.5-3.5); LYMPHOCYTES % (AUTO) 22.6 %; MEAN CORPUSCULAR HEMOGLOBIN 28.9 pg (27.0-31.0); MEAN CORPUSCULAR HGB CONC 30.9 g/dL (32.0-36.0); MEAN CORPUSCULAR VOLUME 93.7 fL (81.0-99.0); MEAN PLATELET VOLUME 8.7 fL (7.9-10.8); MONOCYTES # (AUTO) 0.6 10^3/uL (0.0-1.0); MONOCYTES % (AUTO) 8.8 %; NEUTROPHILS # (AUTO) 3.9 10^3/uL (1.5-6.6); NEUTROPHILS % (AUTO) 62.7 %; PLT - PLATELET COUNT 228 10^3/uL (130-450); RED BLOOD COUNT 3.18 10^6/uL (4.20-5.40); RED CELL DISTRIBUTION WIDTH 14.3 % (12.0-15.0); WHITE BLOOD COUNT 6.2 x10^3/uL (4.8-10.8)
[2023-06-08] MEDS: SODIUM CHLORIDE 0.9% 500 ML IV STA (23:12)
[2023-06-08] MEDS: CARBAMIDE PEROXIDE 6.5% OTIC DROPS EACHEAR STA (23:13)
[2023-06-08 23:19] LABS: ALBUMIN 4.2 g/dL (3.2-5.5); ALBUMIN/GLOBULIN RATIO 1.5 (1.0-2.2); BILIRUBIN,TOTAL 0.4 mg/dL (0.2-1.0); CALCIUM 9.7 mg/dL (8.5-10.3); CREATININE 1.9 mg/dL (0.6-1.3); MAGNESIUM 1.8 mg/dL (1.7-2.3); POTASSIUM 4.4 mmol/L (3.5-4.5)
[2023-06-08 23:40] LABS: BILIRUBIN,URINE NEGATIVE (NEGATIVE); GLUCOSE, URINE (UA) NEGATIVE (NEGATIVE); KETONES,URINE (UA) NEGATIVE (NEGATIVE); LEUKOCYTE ESTERASE, URINE SMALL (NEGATIVE); NITRITE,URINE NEGATIVE (NEGATIVE); OCCULT BLOOD,URINE NEGATIVE (NEGATIVE); PH,URINE 5.5 PH (5.0-7.5); PROTEIN,URINE NEGATIVE (NEGATIVE); UROBILINOGEN,URINE 0.2 (NORMAL) E.U./dL (NORMAL)
[2023-06-08 23:44] LABS: CLARITY,URINE CLEAR (CLEAR)
[2023-06-08 23:49] LABS: BACTERIA,URINE Many /HPF (None Seen); RBC,URINE 0-5 /HPF (0-5); SQUAMOUS EPITHELIAL CELL,UR RARE Squamous (<= Few); WBC CLUMPS,URINE PRESENT
[2023-06-09 00:07] VITALS: O2SAT 98
[2023-06-09] MEDS: SULFAMETH/TRIMETH DS 800/160 MG TABLET PO STA (00:26)
[2023-06-09 00:30] VITALS: BP 138/73
== END 2023-06-09 00:40 | disposition home or self-care (01) ==
LOC: ED 22:06
DX: N39.0 Urinary tract infection, site not specified (principal); I12.9 Hypertensive chronic kidney disease with stage 1 through stage 4 chronic kidney disease, or unspecified chronic kidney disease; N18.9 Chronic kidney disease, unspecified; D63.1 Anemia in chronic kidney disease; H61.23 Impacted cerumen, bilateral; J44.9 Chronic obstructive pulmonary disease, unspecified; I25.2 Old myocardial infarction; I10 Essential (primary) hypertension; E78.00 Pure hypercholesterolemia, unspecified; E03.9 Hypothyroidism, unspecified; Z79.02 Long term (current) use of antithrombotics/antiplatelets; Z79.899 Other long term (current) drug therapy
CPT/HCPCS: 36415; 80053; 81001; 83690; 83735; 85025; 87086; 93005; 99284; A9270; 81003

== ENCOUNTER 2023-07-18 13:06 | Outpatient (CLI) | payer MEDICARE, MEDICAID ==
[2023-07-18 18:14] LABS: ALBUMIN 4.2 g/dL (3.2-5.5); ALBUMIN/GLOBULIN RATIO 1.3 (1.0-2.2); BILIRUBIN,TOTAL 0.3 mg/dL (0.2-1.0); CALCIUM 9.6 mg/dL (8.5-10.3); CREATININE 1.7 mg/dL (0.6-1.3); POTASSIUM 4.5 mmol/L (3.5-4.5); TOTAL PROTEIN 7.4 g/dL (6.4-8.9)
[2023-07-18 18:21] LABS: BASOPHILS % (AUTO) 0.8 %; EOSINOPHILS # (AUTO) 0.1 10^3/uL (0.0-0.7); EOSINOPHILS % (AUTO) 1.3 %; HCT - HEMATOCRIT 32.6 % (37.0-47.0); HGB - HEMOGLOBIN 10.1 g/dL (12.0-16.0); LYMPHOCYTES # (AUTO) 1.1 10^3/uL (1.5-3.5); LYMPHOCYTES % (AUTO) 30.7 %; MEAN CORPUSCULAR HEMOGLOBIN 29.9 pg (27.0-31.0); MEAN CORPUSCULAR VOLUME 96.4 fL (81.0-99.0); MONOCYTES # (AUTO) 0.6 10^3/uL (0.0-1.0); MONOCYTES % (AUTO) 15.1 %; NEUTROPHILS # (AUTO) 1.9 10^3/uL (1.5-6.6); NEUTROPHILS % (AUTO) 51.8 %; PLT - PLATELET COUNT 224 10^3/uL (130-450); RED BLOOD COUNT 3.38 10^6/uL (4.20-5.40); RED CELL DISTRIBUTION WIDTH 15.4 % (12.0-15.0); WHITE BLOOD COUNT 3.7 x10^3/uL (4.8-10.8)
[2023-07-18 19:18] LABS: FERRITIN 38.6 ng/mL (11.0-306.8)
== END 2023-07-18 13:07 | disposition home or self-care (01) ==
LOC: LAB.N 13:06
PROVIDERS: ATTEND Physician Assistant
DX: N17.9 Acute kidney failure, unspecified (principal); N18.32 Chronic kidney disease, stage 3b; D64.9 Anemia, unspecified
CPT/HCPCS: 36415; 80053; 82607; 82728; 82746; 83540; 84466; 85025

== ENCOUNTER 2023-08-08 15:20 | Emergency (ER) | payer MEDICARE, MEDICAID ==
[2023-08-08 15:41] VITALS: O2SAT 98
[2023-08-08 16:10] LABS: BASOPHILS # (AUTO) 0.1 10^3/uL (0.0-0.1); BASOPHILS % (AUTO) 1.2 %; EOSINOPHILS # (AUTO) 0.3 10^3/uL (0.0-0.7); EOSINOPHILS % (AUTO) 4.9 %; HCT - HEMATOCRIT 32.7 % (37.0-47.0); LYMPHOCYTES % (AUTO) 20.1 %; MEAN CORPUSCULAR HEMOGLOBIN 29.2 pg (27.0-31.0); MEAN CORPUSCULAR HGB CONC 30.6 g/dL (32.0-36.0); MEAN CORPUSCULAR VOLUME 95.3 fL (81.0-99.0); MONOCYTES # (AUTO) 0.4 10^3/uL (0.0-1.0); MONOCYTES % (AUTO) 7.8 %; NEUTROPHILS # (AUTO) 3.4 10^3/uL (1.5-6.6); NEUTROPHILS % (AUTO) 65.6 %; PLT - PLATELET COUNT 242 10^3/uL (130-450); RED BLOOD COUNT 3.43 10^6/uL (4.20-5.40); WHITE BLOOD COUNT 5.1 x10^3/uL (4.8-10.8)
[2023-08-08 16:26] LABS: ALBUMIN 4.2 g/dL (3.2-5.5); ALBUMIN/GLOBULIN RATIO 1.3 (1.0-2.2); BILIRUBIN,TOTAL 0.4 mg/dL (0.2-1.0); CALCIUM 9.8 mg/dL (8.5-10.3); CREATININE 1.5 mg/dL (0.6-1.3); MAGNESIUM 1.8 mg/dL (1.7-2.3); POTASSIUM 4.6 mmol/L (3.5-4.5); TOTAL PROTEIN 7.4 g/dL (6.4-8.9)
--- NOTE | 2023-08-08 16:53 | ED Physician Documentation ---
PD HPI GI BLEED - Stated complaint Stated Complaint: GI B - Chief complaint Chief Complaint: Abd Pain - Additional information Additional information: 87-year-old female presents emergency department via EMS for lower GI bleed. Patient states that she has been constipated recently she attempted to have a bowel movement and noticed a large amount of blood in the toilet and on the floor she said that she has had multiple episodes of GI bleeds in the past but she has overall fairly poor historian. Patient has chronic dizziness denies any lightheadedness. Denies any abdominal pain or recent fevers chills or illnesses. PD PAST MEDICAL HISTORY - Past Medical History Cardiovascular: Hypertension, High cholesterol, Other Respiratory: Asthma, COPD Neuro: None Endocrine/Autoimmune: HyPOthyroidism GI: GI bleed, Chronic constipation, Hemorrhoids, Other COMPENSATION/BENEFITS SPECIALIST: None : Renal insuffiency HEENT: Chronic sinusitis Psych: None Musculoskeletal: Osteoarthritis Derm: None - Past Surgical History Past Surgical History: Yes General: Appendectomy, Colonoscopy /COMPENSATION/BENEFITS SPECIALIST: Hysterectomy HEENT: Cataracts, Tonsil/Adenoidectomy - Present Medications Home Medications: Ambulatory Orders Medication Instructions Recorded Confirmed Levothyroxine [Synthroid] 25 mcg PO QDAC 11/02/13 06/09/23 Albuterol Sulf [Ventolin Hfa 1 - 2 puffs INH Q4HR PRN #1 inhaler 02/25/19 06/09/23 Inhaler] Beclomethasone Dipropionate [Qvar 1 puffs INH BID 06/25/22 06/09/23 Redihaler (40 mcg)] Ferrous Sulfate [Feosol] 325 mg PO DAILY 06/25/22 06/09/23 Meclizine HCl [Motion Sickness] 25 mg PO BID PRN 06/25/22 06/09/23 Montelukast [Singulair] 10 mg PO DAILY 06/25/22 06/09/23 lisinopriL [Zestril] 5 mg PO DAILY 06/25/22 06/09/23 Albuterol 2.5 mg INH Q4H PRN 06/09/23 06/09/23 Aspirin Chewable [St Tashi 81 mg PO DAILY 06/09/23 06/09/23 Aspirin] Atorvastatin Calcium 40 mg PO DAILY 06/09/23 06/09/23 Carbamide Peroxide Otic Drop 10 drops EACHEAR DAILY PRN #15 ml 06/09/23 [Debrox Otic Drops] Clopidogrel [Plavix] 75 mg PO DAILY 06/09/23 06/09/23 Metoprolol Tartrate [Lopressor] 25 mg PO BID 06/09/23 06/09/23 Multivit-Minerals/Folic Acid 200 mcg PO DAILY 06/09/23 06/09/23 [Multivitamin Gummies] Sulfamethox/Trimeth 800/160 1 each PO BID 5 Days #10 tablet 06/09/23 [Bactrim Ds 800/160] - Allergies Allergies/Adverse Reactions: Allergies Allergy/AdvReac Type Severity Reaction Status Date / Time aztreonam Allergy Unknown Dizziness Verified 08/08/23 15:37 carbamazepine Allergy Unknown Dizziness Verified 08/08/23 15:37 Cephalosporins Allergy Unknown Dizziness Verified 08/08/23 15:37 Penicillins Allergy Unknown Dizziness Verified 08/08/23 15:37 - Social History Does the pt smoke?: No Smoking Status: Never smoker Does the pt drink ETOH?: No Does the pt have substance abuse?: No - Immunizations Immunizations are current?: Yes - POLST Patient has POLST: Yes POLST Status: Full Code PD ED PE NORMAL - Vitals Vital signs reviewed: Yes - General General: Alert and oriented X 3, No acute distress, Well developed/nourished - HEENT HEENT: Atraumatic, PERRL - Cardiac Cardiac: RRR - Respiratory Respiratory: No respiratory distress - Abdomen Abdomen: Normal bowel sounds, Soft, Non tender, No organomegaly - Back Back: No CVA TTP - Derm Derm: Normal color, Warm and dry, No rash - Extremities Extremities: No deformity, No edema, No calf tenderness / cord - Psych Psych: Normal mood, Normal affect PD ED PE EXPANDED - Rectal Rectal: Hemorrhoid (Multiple large External hemorrhoids), Games Dealer present (Preeti WHITT at bedside) Results - Vitals Vitals: Vital Signs - 24 hr 08/08/23 08/08/23 08/08/23 15:28 19:36 20:05 Temperature 36.5 C Heart Rate 97 90 88 Respiratory 16 16 16 Rate Blood Pressure 136/59 H 133/66 H 135/64 H O2 Saturation 98 98 98 Oxygen O2 Source Room air - Labs Labs: Laboratory Tests 08/08/23 08/08/23 08/08/23 16:02 16:02 16:02 WBC 5.1 RBC 3.43 L Hgb 10.0 L Hct 32.7 L MCV 95.3 MCH 29.2 MCHC 30.6 L RDW 14.0 Plt Count 242 MPV 9.0 Neut # (Auto) 3.4 Lymph # (Auto) 1.0 L [place] # (Auto) 0.4 Eos # (Auto) 0.3 Baso # (Auto) 0.1 Absolute Nucleated RBC 0.00 Nucleated RBC % 0.0 Sodium 140 Potassium 4.6 H Chloride 107 Carbon Dioxide 26 Anion Gap 7.0 BUN 24 H Creatinine 1.5 H Estimated GFR (MDRD) 33 L Glucose 105 H Calcium 9.8 Magnesium 1.8 Total Bilirubin 0.4 AST 22 ALT 15 Alkaline Phosphatase 71 Total Protein 7.4 Albumin 4.2 Globulin 3.2 Albumin/Globulin Ratio 1.3 Lipase 79 Blood Type B POSITIVE Antibody Screen NEGATIVE - Rads (name of study) Abdomen pelvis with Relevant Findings:: Final report received, EMP independent interpretation of test, Other (Colonic sigmoid diverticulosis without diverticulitis with external hemorrhoids) PD Medical Decision Making - ED course ED course: 87-year-old female presents emergency department for bright red per rectum. Rectal exam was complete and patient does appear to have some old blood at her rectum and multiple very large hemorrhoids.. She has had no bloody bowel movements since has been here in the emergency department. CT was complete for further evaluation and patient has colonic sigmoid diverticulosis without diverticulitis and probable external hemorrhoids are visualized on the CT. Labs are complete for evaluation of possible anemia and hemoglobin is stable at 10.1 which is actually increased in comparison to previous visit and patient was here. Mild hyperkalemia 4.6, BUN 24, creatinine 1.5, GFR 33 acute kidney injury most likely related to dehydration patient is also quite constipated she is told to start taking MiraLAX daily and was told how to manage her hemorrhoids at home with things like Preparation H suppositories. All questions answered patient safe for discharge and told to follow-up with her primary care provider soon as possible return precautions given. Departure - Departure Disposition: 01 Home, Self Care Clinical Impression: Bleeding external hemorrhoids Instructions: Hydrocortisone suppositories Comments: Thank you for trusting us with your care. We have completed labs and your hemoglobin and hematocrit are quite stable your potassium is slightly elevated at 4.6 this is most likely due to dehydration so strongly encourage you to stay plenty hydrated going home drinking plenty of fluids. You do appear to have a mild acute kidney injury which again is most likely due to dehydration. We have completed a CT scan which shows diverticulosis without diverticulitis as well as hemorrhoids I believe that you had a hemorrhoid rupture today which is what is causing the rectal bleeding. There is no further intervention warranted at this point in time make sure that you are drinking MiraLAX daily to make sure that your stools staying nice and soft to help with your hemorrhoids as well as doing some Preparation H suppositories which is something you can buy [id number] to help keeping your inflammation down is much as possible. Please come back and if you are having any worsening symptoms ongoing bloody bowel movements or any other concerning symptoms. Forms: PCP List Discharge Date/Time: 08/08/23 20:17
[2023-08-08] MEDS ORDERED: iohexoL-300 100 ML VIAL ONE ×2 (18:18→18:19)
[2023-08-08] MEDS: iohexoL-300 100 ML VIAL IVP ONE (18:41)
--- NOTE | 2023-08-08 19:38 | CT Report ---
PROCEDURE: Abdomen/Pelvis W INDICATIONS: rectal bleeding CONTRAST: 100ml omni 300 TECHNIQUE: After the administration of intravenous contrast, a CT scan of the abdomen and pelvis was performed. Images were recorded and evaluated at appropriate window settings. Reformats: coronal and sagittal. F or radiation dose reduction, the following was used: automated exposure control, adjustment of mA and /or kV according to patient size. COMPARISON: None. FINDINGS: Image quality: Diagnostic. Lower chest: Small hiatal hernia. Liver: No solid mass. Gallbladder: No calcifications. Moderately decompressed. Biliary tree: No intrahepatic or extrahepatic dilation, accounting for age. Spleen: No splenomegaly. Pancreas: No pancreatic ductal dilation. Adrenals: No adrenal nodule. Kidneys and ureters: Symmetric enhancement. No hydronephrosis or nephrolithiasis. No solid mass or cy st requiring follow-up. No hydroureter. Stomach, bowel and peritoneum: Moderate sigmoid colon diverticulosis without acute inflammatory araiza es. Diverticulosis also seen elsewhere throughout most of the colon. Small bowel loops demonstrate ai r-fluid levels. The stomach contains air. No pathologic free fluid. The perianal region demonstrates mildly serpiginous hyperenhancement suggesting external hemorrhoids. Lymph nodes: No central or retroperitoneal adenopathy. Vessels: Normal caliber abdominal aorta, IVC, and portal vein. Patent portal vein. PELVIS Reproductive organs: Absent. Bladder: No abnormal wall thickening, accounting for underdistention. Pelvic lymph nodes: No pelvic adenopathy by size criteria. 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 Other: No significant ventral or inguinal hernia. IMPRESSION: Colonic sigmoid diverticulosis without acute diverticulitis. Probable external hemorrhoids. Reviewed by: Qian Calderon MD on 08/08/2023 7:37 PM PDT Approved by: Qian Calderon MD on 08/08/2023 7:37 PM PDT Station ID: [id number]
[2023-08-08 20:14] VITALS: BP 135/64
== END 2023-08-08 20:17 | disposition home or self-care (01) ==
LOC: ED 15:20
DX: K64.4 Residual hemorrhoidal skin tags (principal); I10 Essential (primary) hypertension; E78.00 Pure hypercholesterolemia, unspecified; J44.9 Chronic obstructive pulmonary disease, unspecified; E03.9 Hypothyroidism, unspecified; Z79.899 Other long term (current) drug therapy; Z79.82 Long term (current) use of aspirin; Z79.02 Long term (current) use of antithrombotics/antiplatelets
CPT/HCPCS: 36415; 74177; 80053; 83690; 83735; 85025; 86850; 86900; 86901; 99284; Q9967

== ENCOUNTER 2023-08-30 15:56 | Outpatient (CLI) | payer MEDICARE, MEDICAID | END 2023-08-30 23:59 | disposition critical access hospital (66) | LOC: EMS 15:56 | DX: K92.1 Melena (principal); R42 Dizziness and giddiness | CPT/HCPCS: A0425; A0429 ==

== ENCOUNTER 2023-08-30 16:16 | Emergency (ER) | payer MEDICARE, MEDICAID ==
[2023-08-30 16:57] LABS: BASOPHILS # (AUTO) 0.1 10^3/uL (0.0-0.1); BASOPHILS % (AUTO) 1.2 %; EOSINOPHILS # (AUTO) 0.3 10^3/uL (0.0-0.7); EOSINOPHILS % (AUTO) 4.8 %; HCT - HEMATOCRIT 30.4 % (37.0-47.0); HGB - HEMOGLOBIN 9.6 g/dL (12.0-16.0); LYMPHOCYTES # (AUTO) 1.2 10^3/uL (1.5-3.5); MEAN CORPUSCULAR HEMOGLOBIN 30.1 pg (27.0-31.0); MEAN CORPUSCULAR HGB CONC 31.6 g/dL (32.0-36.0); MEAN CORPUSCULAR VOLUME 95.3 fL (81.0-99.0); MEAN PLATELET VOLUME 8.7 fL (7.9-10.8); MONOCYTES # (AUTO) 0.5 10^3/uL (0.0-1.0); NEUTROPHILS # (AUTO) 3.6 10^3/uL (1.5-6.6); NEUTROPHILS % (AUTO) 63.6 %; PLT - PLATELET COUNT 232 10^3/uL (130-450); RED BLOOD COUNT 3.19 10^6/uL (4.20-5.40); RED CELL DISTRIBUTION WIDTH 13.4 % (12.0-15.0); WHITE BLOOD COUNT 5.6 x10^3/uL (4.8-10.8)
--- NOTE | 2023-08-30 16:58 | ED Physician Documentation ---
History of Present Illness - Stated complaint Stated Complaint: RECTAL BLEED - Chief complaint Chief Complaint: General - History obtained from History obtained from: Patient, EMS - History of Present Illness Timing: Today Pain level max: 0 Pain level now: 0 - Additonal information Additional information: 87-year-old female with known hemorrhoids presents after having a hard bowel movement today and what she saw a small amount of blood in the toilet. She states this is similar to past episodes of her hemorrhoid bleeding. She is not lightheaded or dizzy. No chest pain. No shortness of breath. No abdominal pain. No fevers. No chills. Not on blood thinners. She states she did not want to come to the hospital but the paramedics "talked me into it". Patient is currently asymptomatic. Review of Systems Constitutional: denies: Fever, Chills Respiratory: denies: Dyspnea, Cough GI: denies: Abdominal Pain, Vomiting, Diarrhea, Hematemesis : denies: Dysuria Skin: denies: Rash Musculoskeletal: denies: Neck pain, Back pain Neurologic: denies: Headache PD PAST MEDICAL HISTORY - Past Medical History Cardiovascular: Hypertension, High cholesterol, Other Respiratory: Asthma, COPD Neuro: None Endocrine/Autoimmune: HyPOthyroidism GI: GI bleed, Chronic constipation, Hemorrhoids, Other MASTER GLAZIER: None : Renal insuffiency HEENT: Chronic sinusitis Psych: None Musculoskeletal: Osteoarthritis Derm: None - Past Surgical History Past Surgical History: Yes General: Appendectomy, Colonoscopy /MASTER GLAZIER: Hysterectomy HEENT: Cataracts, Tonsil/Adenoidectomy - Present Medications Home Medications: Ambulatory Orders Medication Instructions Recorded Confirmed Levothyroxine [Synthroid] 25 mcg PO QDAC 11/02/13 06/09/23 Albuterol Sulf [Ventolin Hfa 1 - 2 puffs INH Q4HR PRN #1 inhaler 02/25/19 06/09/23 Inhaler] Beclomethasone Dipropionate [Qvar 1 puffs INH BID 06/25/22 06/09/23 Redihaler (40 mcg)] Ferrous Sulfate [Feosol] 325 mg PO DAILY 06/25/22 06/09/23 Meclizine HCl [Motion Sickness] 25 mg PO BID PRN 06/25/22 06/09/23 Montelukast [Singulair] 10 mg PO DAILY 06/25/22 06/09/23 lisinopriL [Zestril] 5 mg PO DAILY 06/25/22 06/09/23 Albuterol 2.5 mg INH Q4H PRN 06/09/23 06/09/23 Aspirin Chewable [St Tashi 81 mg PO DAILY 06/09/23 06/09/23 Aspirin] Atorvastatin Calcium 40 mg PO DAILY 06/09/23 06/09/23 Carbamide Peroxide Otic Drop 10 drops EACHEAR DAILY PRN #15 ml 06/09/23 [Debrox Otic Drops] Clopidogrel [Plavix] 75 mg PO DAILY 06/09/23 06/09/23 Metoprolol Tartrate [Lopressor] 25 mg PO BID 06/09/23 06/09/23 Multivit-Minerals/Folic Acid 200 mcg PO DAILY 06/09/23 06/09/23 [Multivitamin Gummies] Sulfamethox/Trimeth 800/160 1 each PO BID 5 Days #10 tablet 06/09/23 [Bactrim Ds 800/160] - Allergies Allergies/Adverse Reactions: Allergies Allergy/AdvReac Type Severity Reaction Status Date / Time aztreonam Allergy Unknown Dizziness Verified 08/30/23 16:32 carbamazepine Allergy Unknown Dizziness Verified 08/30/23 16:32 Cephalosporins Allergy Unknown Dizziness Verified 08/30/23 16:32 Penicillins Allergy Unknown Dizziness Verified 08/30/23 16:32 - Social History Does the pt smoke?: No Smoking Status: Never smoker Does the pt drink ETOH?: No Does the pt have substance abuse?: No - Immunizations Immunizations are current?: Yes - POLST Patient has POLST: Yes POLST Status: Full Code PD ED PE NORMAL - Vitals Vital signs reviewed: Yes - General General: Alert and oriented X 3, No acute distress - HEENT HEENT: PERRL, Moist mucous membranes - Neck Neck: Supple, no meningeal sign - Cardiac Cardiac: RRR, Strong equal pulses - Respiratory Respiratory: No respiratory distress, Clear bilaterally - Abdomen Abdomen: Soft, Non tender, Non distended - Rectal Rectal: Other (Normal rectal exam except large hemorrhoids, not thrombosed. PERI richardson.) - Derm Derm: Warm and dry - Neuro Neuro: Alert and oriented X 3 - Psych Psych: Normal mood, Normal affect Results - Vitals Vitals: Vital Signs - 24 hr 08/30/23 08/30/23 08/30/23 16:28 16:32 17:15 Temperature 36.6 C 36.6 C Heart Rate 82 72 72 Respiratory 18 17 17 Rate Blood Pressure 135/95 H 143/71 H 143/71 H O2 Saturation 100 99 99 08/30/23 18:05 Temperature 36.6 C Heart Rate 72 Respiratory 17 Rate Blood Pressure 143/71 H O2 Saturation 99 Oxygen O2 Source Room air - Labs Labs: Laboratory Tests 08/30/23 08/30/23 16:44 16:44 WBC 5.6 RBC 3.19 L Hgb 9.6 L Hct 30.4 L MCV 95.3 MCH 30.1 MCHC 31.6 L RDW 13.4 Plt Count 232 MPV 8.7 Neut # (Auto) 3.6 Lymph # (Auto) 1.2 L [place] # (Auto) 0.5 Eos # (Auto) 0.3 Baso # (Auto) 0.1 Absolute Nucleated RBC 0.00 Nucleated RBC % 0.0 Sodium 139 Potassium 4.3 Chloride 106 Carbon Dioxide 26 Anion Gap 7.0 BUN 21 H Creatinine 1.3 Estimated GFR (MDRD) 39 L Glucose 104 Calcium 9.3 Total Bilirubin 0.3 AST 21 ALT 13 Alkaline Phosphatase 57 Total Protein 6.7 Albumin 4.0 Globulin 2.7 Albumin/Globulin Ratio 1.5 Lipase 157 H PD Medical Decision Making - ED course Complexity details: reviewed results, re-evaluated patient, considered differential, d/w patient ED course: 87-year-old female with what appears to be hemorrhoidal bleeding, this is been evaluated several times recently in the past. Including with CT scans. The patient has no abdominal pain. The bleeding is only with hard bowel movements. Her hemoglobin is near her normal baseline. No significant drop. Abdomen is soft, nontender nondistended on serial exam. Patient fully asymptomatic here. Recommend that she follow-up with her doctor for referral to general surgery to discuss management of her hemorrhoids as needed. No indication for further evaluation at this time. Patient counseled regarding signs and symptoms for which I believe and urgent re-evaluation would be necessary. Patient with good understanding of and agreement to plan and is comfortable going home at this time This document was made in part using voice recognition software. While efforts are made to proofread this document, sound alike and grammatical errors may occur. Departure - Departure Disposition: 01 Home, Self Care Clinical Impression: Hemorrhoid Qualifiers: Hemorrhoid type: unspecified Qualified Code(s): K64.9 - Unspecified hemorrhoids Condition: Good Instructions: ED Hemorrhoids Follow-Up: your,doctor this week [Other] Comments: As we discussed you have hemorrhoids that will cause bleeding when you are constipated. Your doctor can refer you to a surgeon to have the hemorrhoids removed if these are bothering you. Please follow-up with your doctor for further care. Forms: PCP List Discharge Date/Time: 08/30/23 18:06
[2023-08-30 17:09] LABS: ALBUMIN/GLOBULIN RATIO 1.5 (1.0-2.2); BILIRUBIN,TOTAL 0.3 mg/dL (0.2-1.0); CALCIUM 9.3 mg/dL (8.5-10.3); CREATININE 1.3 mg/dL (0.6-1.3); POTASSIUM 4.3 mmol/L (3.5-4.5); TOTAL PROTEIN 6.7 g/dL (6.4-8.9)
[2023-08-30 17:16] VITALS: BP 143/71; O2SAT 99
== END 2023-08-30 18:06 | disposition home or self-care (01) ==
LOC: EDUNIT# → ED 16:16
DX: K64.9 Unspecified hemorrhoids (principal); I10 Essential (primary) hypertension; E78.00 Pure hypercholesterolemia, unspecified; J44.9 Chronic obstructive pulmonary disease, unspecified; E03.9 Hypothyroidism, unspecified; N28.9 Disorder of kidney and ureter, unspecified; Z79.02 Long term (current) use of antithrombotics/antiplatelets; Z79.899 Other long term (current) drug therapy
CPT/HCPCS: 36415; 80053; 83690; 85025; 99283

== ENCOUNTER 2023-09-02 08:23 | Outpatient (CLI) | payer MEDICARE, MEDICAID | END 2023-09-02 23:59 | disposition EMS.NT | LOC: EMS 08:23 | DX: K64.9 Unspecified hemorrhoids (principal) ==

== ENCOUNTER 2023-09-25 14:04 | Outpatient (CLI) | payer MEDICARE ==
[2023-09-25 14:23] LABS: BASOPHILS # (AUTO) 0.1 10^3/uL (0.0-0.1); BASOPHILS % (AUTO) 1.6 %; EOSINOPHILS # (AUTO) 0.4 10^3/uL (0.0-0.7); EOSINOPHILS % (AUTO) 7.4 %; HCT - HEMATOCRIT 26.6 % (37.0-47.0); HGB - HEMOGLOBIN 8.1 g/dL (12.0-16.0); LYMPHOCYTES % (AUTO) 17.5 %; MEAN CORPUSCULAR HEMOGLOBIN 30.1 pg (27.0-31.0); MEAN CORPUSCULAR HGB CONC 30.5 g/dL (32.0-36.0); MEAN CORPUSCULAR VOLUME 98.9 fL (81.0-99.0); MEAN PLATELET VOLUME 8.5 fL (7.9-10.8); MONOCYTES # (AUTO) 0.5 10^3/uL (0.0-1.0); MONOCYTES % (AUTO) 8.4 %; NEUTROPHILS # (AUTO) 3.7 10^3/uL (1.5-6.6); NEUTROPHILS % (AUTO) 64.6 %; PLT - PLATELET COUNT 286 10^3/uL (130-450); RED BLOOD COUNT 2.69 10^6/uL (4.20-5.40); RED CELL DISTRIBUTION WIDTH 14.6 % (12.0-15.0); WHITE BLOOD COUNT 5.7 x10^3/uL (4.8-10.8)
[2023-09-25 15:02] LABS: FERRITIN 20.2 ng/mL (11.0-306.8)
== END 2023-09-25 14:05 | disposition home or self-care (01) ==
LOC: LAB 14:04
PROVIDERS: ATTEND Physician Assistant
DX: D64.9 Anemia, unspecified (principal)
CPT/HCPCS: 36415; 82728; 83540; 84466; 85025; 86850; 86900; 86901; 86920

== ENCOUNTER 2023-11-05 17:34 | Emergency (ER) | payer MEDICARE, MEDICAID ==
--- NOTE | 2023-11-05 17:45 | ED Physician Documentation ---
PD HPI DYSPNEA - Stated complaint Stated Complaint: SOA - History obtained from History obtained from: Patient - Additional information Additional information: 88-year-old woman with history of COPD, non-STEMI, CKD, hyperlipidemia has been sleeping excessively over the last few days feeling fatigued. Today she got suddenly short of breath at 3 PM. She been coughing up yellow mucus. She denies pedal edema, calf pain, or chest pain. She received [address] way here and feels better already. No fevers. PD PAST MEDICAL HISTORY - Past Medical History Cardiovascular: Hypertension, High cholesterol, Other Respiratory: Asthma, COPD Neuro: None Endocrine/Autoimmune: HyPOthyroidism GI: GI bleed, Chronic constipation, Hemorrhoids, Other LATEXER: None : Renal insuffiency HEENT: Chronic sinusitis Psych: None Musculoskeletal: Osteoarthritis Derm: None - Past Surgical History Past Surgical History: Yes General: Appendectomy, Colonoscopy /LATEXER: Hysterectomy HEENT: Cataracts, Tonsil/Adenoidectomy - Present Medications Home Medications: Ambulatory Orders Medication Instructions Recorded Confirmed Levothyroxine [Synthroid] 25 mcg PO QDAC 11/02/13 06/09/23 Albuterol Sulf [Ventolin Hfa 1 - 2 puffs INH Q4HR PRN #1 inhaler 02/25/19 06/09/23 Inhaler] Beclomethasone Dipropionate [Qvar 1 puffs INH BID 06/25/22 06/09/23 Redihaler (40 mcg)] Ferrous Sulfate [Feosol] 325 mg PO DAILY 06/25/22 06/09/23 Meclizine HCl [Motion Sickness] 25 mg PO BID PRN 06/25/22 06/09/23 Montelukast [Singulair] 10 mg PO DAILY 06/25/22 06/09/23 lisinopriL [Zestril] 5 mg PO DAILY 06/25/22 06/09/23 Albuterol 2.5 mg INH Q4H PRN 06/09/23 06/09/23 Aspirin Chewable [St Tashi 81 mg PO DAILY 06/09/23 06/09/23 Aspirin] Atorvastatin Calcium 40 mg PO DAILY 06/09/23 06/09/23 Carbamide Peroxide Otic Drop 10 drops EACHEAR DAILY PRN #15 ml 06/09/23 [Debrox Otic Drops] Clopidogrel [Plavix] 75 mg PO DAILY 06/09/23 06/09/23 Metoprolol Tartrate [Lopressor] 25 mg PO BID 06/09/23 06/09/23 Multivit-Minerals/Folic Acid 200 mcg PO DAILY 06/09/23 06/09/23 [Multivitamin Gummies] Sulfamethox/Trimeth 800/160 1 each PO BID 5 Days #10 tablet 06/09/23 [Bactrim Ds 800/160] Doxycycline [Vibramycin] 100 mg PO BID #14 tablet 11/05/23 predniSONE [Deltasone] 20 mg PO [id number] #21 tab 11/05/23 - Allergies Allergies/Adverse Reactions: Allergies Allergy/AdvReac Type Severity Reaction Status Date / Time aztreonam Allergy Unknown Dizziness Verified 11/05/23 17:42 carbamazepine Allergy Unknown Dizziness Verified 11/05/23 17:42 Cephalosporins Allergy Unknown Dizziness Verified 11/05/23 17:42 Penicillins Allergy Unknown Dizziness Verified 11/05/23 17:42 - Social History Does the pt smoke?: No Smoking Status: Never smoker Does the pt drink ETOH?: No Does the pt have substance abuse?: No - Immunizations Immunizations are current?: Yes - POLST Patient has POLST: Yes POLST Status: Full Code PD ED PE NORMAL - Vitals Vital signs reviewed: Yes - General General: Alert and oriented X 3, Other (Hard of hearing and mildly labored breathing) - HEENT HEENT: PERRL, EOMI - Neck Neck: Supple, no meningeal sign, No bony TTP - Cardiac Cardiac: Other (Mild resting tachycardia but regular) - Respiratory Respiratory: Other (Diminished throughout with expiratory wheezes, mildly tachypneic) - Abdomen Abdomen: Non tender - Extremities Extremities: No edema, No calf tenderness / cord - Neuro Neuro: Alert and oriented X 3, Normal speech Results - Vitals Vitals: Vital Signs - 24 hr 11/05/23 11/05/23 11/05/23 17:43 18:16 18:53 Temperature 36.3 C L Heart Rate 114 H 98 97 Respiratory 22 22 16 Rate Blood Pressure 186/101 H 170/77 H 164/81 H O2 Saturation 96 95 95 Oxygen O2 Source Room air - EKG (time done) 1750 EKG releavant findings:: EKG personally interpreted by author of this note. Relevant findings are: Rate: Rate (enter#) (99) Rhythm: NSR Waldo: Normal Intervals: Normal VA QRS: Normal Ischemia: Normal ST segments - Labs Labs: Laboratory Tests 11/05/23 11/05/23 11/05/23 17:51 17:51 17:51 WBC 5.5 RBC 2.98 L Hgb 9.1 L Hct 29.5 L MCV 99.0 MCH 30.5 MCHC 30.8 L RDW 14.6 Plt Count 223 MPV 8.4 Neut # (Auto) 2.9 Lymph # (Auto) 1.2 L Hubbard # (Auto) 0.4 Eos # (Auto) 0.9 H Baso # (Auto) 0.1 Absolute Nucleated RBC 0.00 Nucleated RBC % 0.0 VBG pH VBG pCO2 VBG pO2 VBG HCO3 VBG Total CO2 VBG O2 Saturation VBG Base Excess Sodium 142 Potassium 3.9 Chloride 107 Carbon Dioxide 25 Anion Gap 10.0 BUN 20 Creatinine 1.3 Estimated GFR (MDRD) 39 L Glucose 118 H Calcium 9.4 Phosphorus 4.4 Magnesium 1.7 Total Bilirubin 0.3 AST 24 ALT 15 Alkaline Phosphatase 72 Troponin I High Sens 6.9 B-Natriuretic Peptide Total Protein 6.7 Albumin 3.8 Globulin 2.9 Albumin/Globulin Ratio 1.3 Nasal Adenovirus (PCR) Nasal B. parapertussis DNA (PCR) Nasal Coronavir 229E PCR Nasal Coronavir HKU1 PCR Nasal Coronavir NL63 PCR Nasal Coronavir OC43 PCR Nasal Enterovir/Rhinovir PCR Nasal Influenza B PCR Nasal Influenza A PCR Nasal Parainfluen 1 PCR Nasal Parainfluen 2 PCR Nasal Parainfluen 3 PCR Nasal Parainfluen 4 PCR Nasal RSV (PCR) Nasal B.pertussis DNA PCR Nasal C.pneumoniae (PCR) Ha Human Metapneumo PCR Nasal M.pneumoniae (PCR) Nasal SARS-CoV-2 (PCR) 11/05/23 11/05/23 11/05/23 17:51 17:51 18:01 WBC RBC Hgb Hct MCV MCH MCHC RDW Plt Count MPV Neut # (Auto) Lymph # (Auto) Hubbard # (Auto) Eos # (Auto) Baso # (Auto) Absolute Nucleated RBC Nucleated RBC % VBG pH 7.390 VBG pCO2 39.7 L VBG pO2 30.6 VBG HCO3 23.5 VBG Total CO2 24.7 VBG O2 Saturation 56.2 L VBG Base Excess -1.3 Sodium Potassium Chloride Carbon Dioxide Anion Gap BUN Creatinine Estimated GFR (MDRD) Glucose Calcium Phosphorus Magnesium Total Bilirubin AST ALT Alkaline Phosphatase Troponin I High Sens B-Natriuretic Peptide 76 Total Protein Albumin Globulin Albumin/Globulin Ratio Nasal Adenovirus (PCR) NOT DETECTED Nasal B. parapertussis DNA (PCR) NOT DETECTED Nasal Coronavir 229E PCR NOT DETECTED Nasal Coronavir HKU1 PCR NOT DETECTED Nasal Coronavir NL63 PCR NOT DETECTED Nasal Coronavir OC43 PCR NOT DETECTED Nasal Enterovir/Rhinovir PCR NOT DETECTED Nasal Influenza B PCR NOT DETECTED Nasal Influenza A PCR NOT DETECTED Nasal Parainfluen 1 PCR NOT DETECTED Nasal Parainfluen 2 PCR NOT DETECTED Nasal Parainfluen 3 PCR NOT DETECTED Nasal Parainfluen 4 PCR NOT DETECTED Nasal RSV (PCR) NOT DETECTED Nasal B.pertussis DNA PCR NOT DETECTED Nasal C.pneumoniae (PCR) NOT DETECTED Ha Human Metapneumo PCR NOT DETECTED Nasal M.pneumoniae (PCR) NOT DETECTED Nasal SARS-CoV-2 (PCR) NOT DETECTED PD Medical Decision Making - ED course ED course: 88-year-old woman presents with what seems like a COPD exacerbation. Feeling better after 2 new DuoNebs from EMS on the way here. Differential would include atypical NM, CHF. 88-year-old woman presents with acute shortness of breath and wheezing improved en route after 2 DuoNeb's. It seems like a COPD exacerbation. Differential would include heart failure, NM. Workup demonstrates stable chronic anemia, unremarkable venous blood gas, normal CMP save mild CKD. Negative troponin and BNP ruling out cardiac emergency. Her chest x-ray was negative. She was administered dexamethasone and doxycycline. It became clear that she had some memory issues while I talk to her and she was also quite hard of hearing. She lives alone and I called the daughter and the daughter does have a backup plan and we agree that the patient is at a point where she may not be able to live alone safely much longer. Departure - Departure Disposition: 01 Home, Self Care Clinical Impression: Asthma exacerbation in COPD Condition: Good Record reviewed to determine appropriate education?: Yes Instructions: ED COPD Flare Prescriptions: predniSONE [Deltasone] 20 mg PO [id number] #21 tab Doxycycline [Vibramycin] 100 mg PO BID #14 tablet Comments: You were seen tonight for a flare of COPD. No evidence of active heart issue or heart failure. I sent prescriptions electronically to the [facility] in [place]. Call your doctor to arrange a follow-up appointment, make the next available appointment. In the interim, return anytime if worse or if new symptoms develop. Forms: PCP List Discharge Date/Time: 11/05/23 19:55
[2023-11-05 17:55] LABS: BASOPHILS # (AUTO) 0.1 10^3/uL (0.0-0.1); BASOPHILS % (AUTO) 0.9 %; EOSINOPHILS # (AUTO) 0.9 10^3/uL (0.0-0.7); EOSINOPHILS % (AUTO) 15.7 %; HCT - HEMATOCRIT 29.5 % (37.0-47.0); HGB - HEMOGLOBIN 9.1 g/dL (12.0-16.0); LYMPHOCYTES # (AUTO) 1.2 10^3/uL (1.5-3.5); LYMPHOCYTES % (AUTO) 21.9 %; MEAN CORPUSCULAR HEMOGLOBIN 30.5 pg (27.0-31.0); MEAN CORPUSCULAR HGB CONC 30.8 g/dL (32.0-36.0); MEAN PLATELET VOLUME 8.4 fL (7.9-10.8); MONOCYTES # (AUTO) 0.4 10^3/uL (0.0-1.0); MONOCYTES % (AUTO) 7.7 %; NEUTROPHILS # (AUTO) 2.9 10^3/uL (1.5-6.6); NEUTROPHILS % (AUTO) 53.6 %; PLT - PLATELET COUNT 223 10^3/uL (130-450); RED BLOOD COUNT 2.98 10^6/uL (4.20-5.40); RED CELL DISTRIBUTION WIDTH 14.6 % (12.0-15.0); VBG PCO2 39.7 mmHg (41-51); VBG PH 7.39 (7.31-7.41); WHITE BLOOD COUNT 5.5 x10^3/uL (4.8-10.8)
[2023-11-05 17:56] LABS: VBG BASE EXCESS -1.3 mmol/L (-2 - +2); VBG HCO3 23.5 mmol/L (23-28); VBG OXYGEN SATURATION 56.2 % (60-80); VBG PO2 30.6 mmHg (25-47); VBG TOTAL CO2 24.7 mmol/L (24-29)
[2023-11-05] MEDS: DEXAMETHASONE 10 MG/ML VIAL IVP STA (17:58)
[2023-11-05 18:08] LABS: MAGNESIUM 1.7 mg/dL (1.7-2.3)
[2023-11-05 18:14] LABS: ALBUMIN 3.8 g/dL (3.2-5.5); ALBUMIN/GLOBULIN RATIO 1.3 (1.0-2.2); BILIRUBIN,TOTAL 0.3 mg/dL (0.2-1.0); CALCIUM 9.4 mg/dL (8.5-10.3); CREATININE 1.3 mg/dL (0.6-1.3); PHOSPHORUS 4.4 mg/dL (2.5-5.0); POTASSIUM 3.9 mmol/L (3.5-4.5); TOTAL PROTEIN 6.7 g/dL (6.4-8.9)
[2023-11-05 18:20] VITALS: O2SAT 95
--- NOTE | 2023-11-05 18:39 | XRAY Report ---
PROCEDURE: Chest 1V INDICATIONS: dyspnea TECHNIQUE: One view of the chest was acquired. COMPARISON: 05/04/2023. FINDINGS: Surgical changes and devices: None. Lungs and pleura: No pleural effusions or pneumothorax. Lungs are clear. Mediastinum: Mediastinal contours appear normal. Heart size is normal. Bones and chest wall: No suspicious bony lesions. Overlying soft tissues appear unremarkable. IMPRESSION: No acute cardiopulmonary process. Reviewed by: Elias Doan MD on 11/05/2023 6:37 PM PDT Approved by: Elias Doan MD on 11/05/2023 6:37 PM PDT Station ID: [id number]
[2023-11-05] MEDS: DOXYCYCLINE 100 MG TABLET PO STA (18:50)
[2023-11-05 19:03] VITALS: BP 164/81
[2023-11-05 19:06] LABS: CORONAVIRUS 229E-RESP PCR NOT DETECTED; CORONAVIRUS HKU1-RESP PCR NOT DETECTED; CORONAVIRUS NL63-RESP PCR NOT DETECTED
[2023-11-05 19:07] LABS: B. PARAPERTUSSIS- RESP PCR PAN NOT DETECTED; B. PERTUSSIS- RESP PCR PANEL NOT DETECTED; C. PNEUMONIAE- RESP PCR PANEL NOT DETECTED; CORONAVIRUS OC43-RESP PCR NOT DETECTED; HUMAN METAPNEUMOVIRUS NOT DETECTED; INFLUENZA A- RESP PCR PANEL NOT DETECTED; INFLUENZA B - RESP PCR PANEL NOT DETECTED; M. PNEUMONIAE- RESP PCR PANEL NOT DETECTED; PARAINFLUENZA VIRUS 1 NOT DETECTED; PARAINFLUENZA VIRUS 2 NOT DETECTED; PARAINFLUENZA VIRUS 3 NOT DETECTED; PARAINFLUENZA VIRUS 4 NOT DETECTED; RHINOVIRUS/ENTEROVIRUS NOT DETECTED; RSV- RESP PCR PANEL NOT DETECTED; SARS-CoV-2 -RESP PCR PANEL NOT DETECTED
== END 2023-11-05 19:55 | disposition home or self-care (01) ==
LOC: EDUNIT# → EDBD → ED 17:34
DX: J44.1 Chronic obstructive pulmonary disease with (acute) exacerbation (principal); I10 Essential (primary) hypertension; E78.00 Pure hypercholesterolemia, unspecified; E03.9 Hypothyroidism, unspecified; I25.2 Old myocardial infarction; N18.9 Chronic kidney disease, unspecified; E78.5 Hyperlipidemia, unspecified; Z79.02 Long term (current) use of antithrombotics/antiplatelets; Z79.899 Other long term (current) drug therapy
CPT/HCPCS: 36415; 71045; 80053; 82803; 83735; 83880; 84100; 84484; 85025; 87633; 93005; 96374; 99284; A9270